=== PATIENT | male | born 1970 | race Caucasian/White ===

== ENCOUNTER 2021-03-29 07:43 | Emergency (ER) | payer OTHER, SELFPAY ==
--- NOTE | ~2021-03-29 | CT_ITS ---
EXAMINATION: CT ABDOMEN AND PELVIS WITHOUT CONTRAST CLINICAL INFORMATION: Left flank pain COMPARISON: CT abdomen pelvis 2016 TECHNIQUE: Multidetector volumetric imaging was performed from the superior aspect of the liver through the pubic symphysis. Sagittal and coronal reformatted images were obtained on the technologist's workstation. This CT examination was performed using dose optimization techniques as appropriate, variously including the following: *Automated exposure control *Adjustment of mA and/or kV according to patient size (this includes techniques or standardized protocols for targeted exams where dose is matched to indication/reason for exam; i.e. extremities or head) *Use of iterative reconstruction technique DLP: 670 mGy-cm FINDINGS: LUNG BASES: There is bibasilar atelectasis/scarring. Heart size is normal. LIVER, GALLBLADDER, AND BILIARY TREE: The liver is normal in size, shape, and attenuation. There is a focal hypodensity along the ligament teres likely focal fatty infiltration. Rest the liver is unremarkable. No biliary ductal dilatation is present. The gallbladder is unremarkable with no evidence of radiopaque gallstones, gallbladder wall thickening, or obvious pericholecystic inflammatory changes. PANCREAS: Unremarkable. SPLEEN: Unremarkable. ADRENAL GLANDS: Unremarkable. KIDNEYS AND URETERS: The kidneys are normal in size, shape, and attenuation. No hydronephrosis, hydroureter, or calculi seen. No perinephric stranding. BLADDER: Unremarkable. GASTROINTESTINAL TRACT: There is scattered gas, diverticula and stool seen throughout the colon without significant distention. The small bowel loops are normal caliber. There are surgical camille along the right lower quadrant likely from previous appendectomy. No free air or free fluid seen. ABDOMINAL WALL: No significant hernia is appreciated. LYMPH NODES: Normal. VASCULAR: Unremarkable. PELVIC VISCERA: Unremarkable. OSSEOUS STRUCTURES: Unremarkable. CT/CT abdomen pelvis wo con IMPRESSION: Sigmoid and scattered rest the colon diverticulosis without arthritis. Mild constipation. No radiopaque urolith or hydroureteronephrosis. Likely appendectomy with surgical camille in the right lower quadrant.
[2021-03-29 08:00] VITALS: BP 135/73; PULSE 67; RESP 18; TEMP 36.7; O2SAT 96; BMI 29.7
--- NOTE | 2021-03-29 08:14 | ED_ITS ---
HPI - Back Pain/Injury General Chief Complaint: Back Pain/Injury Stated Complaint: L LOWER SIDE SWELLING Time Seen by Provider: 03/29/21 08:12 Source: patient Mode of arrival: ambulatory Limitations: no limitations History of Present Illness MD elicited complaint: back pain Onset (ago): week(s) (2) Timing: intermittent Severity: moderate Similar Symptoms Previously: No Quality: dull Location: left flank Radiation: none Exacerbating factors: none Relieving factors: none Context: unknown Associated symptoms: denies other symptoms Work related injury: No Related Data Previous Rx's Medication Instructions Recorded candesartan 16 mg tablet 16 mg PO DAILY #90 tab 06/27/20 albuterol sulfate 90 mcg/actuation 2 inh INHALATION Q6H PRN #8.5 g 12/19/20 aerosol inhaler cyclobenzaprine 10 mg tablet 10 mg PO TID PRN #14 tab 03/29/21 ibuprofen 600 mg tablet 600 mg PO Q6H PRN #30 tab 03/29/21 lidocaine 4 % topical patch 1 patch TOPICAL DAILY PRN #10 ea 03/29/21 Allergies Allergy/AdvReac Type Severity Reaction Status Date / Time Iodinated Contrast Media Allergy Intermediate HIVES Verified 03/29/21 08:00 [IV CONTRAST] shrimp Allergy Intermediate THROAT Verified 03/29/21 08:00 SWELLING/ITCHING iopamidol [From Isovue-128] Allergy Mild HIVES Verified 03/29/21 08:00 penicillin V Allergy Unknown unknown Verified 03/29/21 08:00 Penicillins [PENICILLINS] Allergy Unknown REACTION Verified 03/29/21 08:00 UNKNOWN FRUIT, SKINS Allergy Intermediate THROAT Uncoded 12/19/20 09:25 SWELLING/ITCHING Dye PENITENTIARY Blue 1 Allergy Unknown unknown Uncoded 12/19/20 09:25 Review of Systems Review of Systems: Constitutional : No Weight loss, No Fever, No Chills, ENT/Mouth : No Hearing loss, No Ear Pain, No Nasal Congestion, No Sinus Pain, No Hoarseness, No sore throat, No Rhinorrhea, No Swallowing Difficulty Cardiovascular : No Chest Pain, No SOB Respiratory : No Cough, No Dyspnea Gastrointestinal : No Nausea, No Vomiting, No Diarrhea, No abdominal Pain, No Hematochezia, No Melena Genitourinary : No Dysuria, No Urinary Frequency, No Hematuria, No Urinary Incontinence, Musculoskeletal : positive back pain Skin : No Skin Lesions, No rash Neuro : No Weakness, No Numbness, No Paresthesias, no loss of bowel or bladder incontinence, no saddle anesthesia All other systems reviewed and are negative [facility] Past Medical History Medical History (Updated 03/29/21 @ 10:15 by Lizzie Ames DO) Asthma HTN (hypertension) Retinal vein occlusion Social History Social History Housing: House Patient Tobacco Use Status: Never used Tobacco Second Hand Smoke Exposure: No Advance Directives: No Advance Directives Information Provided: Yes Advance Directives on File: No Current occupational status: employed Physical Exam Vital Signs: Vital Signs: Last Vital Signs Temp 98.0 F 03/29/21 08:00 Pulse 67 03/29/21 08:00 Resp 18 03/29/21 08:00 BP 135/73 03/29/21 08:00 Pulse Ox 96 03/29/21 08:00 Body Mass Index 29.7 Appearance: Alert. Oriented X3. No acute distress. Eyes: Pupils equal, round and reactive to light. ENT: Pharynx normal. Neck: Normal inspection. Neck supple. CVS: Normal heart rate and rhythm. Pulses normal. Respiratory: No respiratory distress. Breath sounds normal. Abdomen: Soft and nontender. Back: feels L flank is more swollen on rash or mass felt, mild ttp Skin: Skin warm and dry. Normal skin color. Normal skin turgor. Extremities: No lower extremity edema. No calf ttp Neuro: Oriented X 3. No motor deficit. No sensory deficit. Course Course Course Narrative: no acute findings MDM - Back Pain/Injury MDM Narrative Medical decision making narrative: 50 yo male with no sig PMH here with c/o swelling and pain to L flank for 3 weeks no trauma reported no other red flags just unusual pain - not reproduceable at this time will obtain UA and CT scan for mass - dispo per results and findings. Lab Data Labs: Lab Results 03/29/21 Range/Units 08:40 Urine Color YELLOW Urine Appearance CLEAR Urine pH 6.5 (5.0-8.0) Ur Specific [place] 1.020 (1.005-1.025) Urine Protein NEG (NEG-TRACE) MG/DL Urine Glucose (UA) NEG (NEG) MG/DL Urine Ketones NEG (NEG) MG/DL Urine Blood 1+ H (NEG) Urine Nitrite NEG (NEG) Ur Leukocyte Esterase NEG (NEG) Urine RBC 5-9 H (0) /HPF Urine WBC 0-2 (0-4) /HPF Ur Squamous Epith Cells TRACE /LPF Urine Bacteria NONE /LPF Urine Mucus 1+ /LPF Discharge Plan Discharge Clinical Impression: Left flank pain Patient Disposition: Home, Self-Care Instructions: Flank Pain (ED) Additional Instructions: return to ED for any worsening symptoms or concerns Prescriptions: New cyclobenzaprine 10 mg tablet 10 mg PO TID PRN (Reason: muscle spasm) Qty: 14 RF: 0 lidocaine 4 % adhesive patch,medicated 1 patch topical DAILY PRN (Reason: pain) Qty: 10 RF: 0 ibuprofen 600 mg tablet 600 mg PO Q6H PRN (Reason: pain) Qty: 30 RF: 0 No Action candesartan 16 mg tablet 16 mg PO DAILY Qty: 90 RF: 3 albuterol sulfate 90 mcg/actuation HFA aerosol inhaler 2 inh inhalation Q6H PRN (Reason: shortness of breath or wheezing) Qty: 8.5 RF: 5 Referrals: Jelena Hammonds MD [Primary Care Provider] - 2 days (if not better) Stand Alone Forms: Work/School Release
[2021-03-29 08:51] LABS: Appearance Urine CLEAR; Color Urine YELLOW; Glucose Urine UA NEG (NEG); Leukocyte Esterase Urine NEG (NEG); Nitrite Urine NEG (NEG); PH 6.5 (5.0-8.0); UACC Culture Trigger NO; Urine Blood 1+ (NEG); Urine Ketones NEG (NEG); Urine Protein NEG (NEG-TRACE)
[2021-03-29 09:00] LABS: Mucus Urine 1+ /LPF; Squamous Epithelial Cell Urine TRACE /LPF; WBC Urine 0-2 /HPF (0-4)
== END 2021-03-29 10:33 | disposition home or self-care (01) ==
PROVIDERS: Emergency Provider Emergency Medicine; PCP Internal Medicine
DX: R10.9 Unspecified abdominal pain (principal); I10 Essential (primary) hypertension; J45.909 Unspecified asthma, uncomplicated; Z79.899 Other long term (current) drug therapy
CPT/HCPCS: 74176; 81001; 99283; 99284

== ENCOUNTER 2021-03-31 22:22 | Emergency (ER) | payer OTHER, SELFPAY ==
--- NOTE | ~2021-03-31 | XR_ITS ---
EXAMINATION: XR CHEST CLINICAL INFORMATION: Fever COMPARISON: 12/12/2019 TECHNIQUE: Frontal view of the chest was obtained. FINDINGS: The lungs are well expanded. There is no focal consolidation, edema, or effusion. Mild bronchial wall thickening noted. No pneumothorax. The cardiomediastinal silhouette is within normal limits. No acute osseous abnormality. Radiopaque anchors in the left humeral head. XR/XR chest 1V IMPRESSION: No consolidation. Bronchial wall thickening can be seen with a small airways process such as asthma or atypical/viral infection.
[2021-03-31 22:43] VITALS: BP 147/88; PULSE 76; RESP 16; TEMP 38.3; O2SAT 96; BMI 29.7
--- NOTE | 2021-03-31 23:19 | ED_ITS ---
HPI - Back Pain/Injury General Chief Complaint: Back Pain/Injury Stated Complaint: Flank pain Time Seen by Provider: 03/31/21 23:13 Source: patient Mode of arrival: ambulatory Limitations: no limitations History of Present Illness HPI Narrative: Patient comes emergency room complaining of left-sided back pain. Patient was evaluated 2 days ago, CT scan was within normal limits. Patient states that he is concerned that his kidneys are not working well. Patient's concern is due to the history of family issues with kidneys. Patient denies abdominal pain, no flank pain, complaining of back pain with movement, states his told him his back looks more swollen than usual. No urinary symptoms., no fever chills. Related Data Previous Rx's Medication Instructions Recorded candesartan 16 mg tablet 16 mg PO DAILY #90 tab 06/27/20 albuterol sulfate 90 mcg/actuation 2 inh INHALATION Q6H PRN #8.5 g 12/19/20 aerosol inhaler cyclobenzaprine 10 mg tablet 10 mg PO TID PRN #14 tab 03/29/21 ibuprofen 600 mg tablet 600 mg PO Q6H PRN #30 tab 03/29/21 lidocaine 4 % topical patch 1 patch TOPICAL DAILY PRN #10 ea 03/29/21 cyclobenzaprine 10 mg tablet 10 mg PO TID PRN #10 tab 04/01/21 Allergies Allergy/AdvReac Type Severity Reaction Status Date / Time Iodinated Contrast Media Allergy Intermediate HIVES Verified 03/31/21 22:41 [IV CONTRAST] shrimp Allergy Intermediate THROAT Verified 03/31/21 22:41 SWELLING/ITCHING iopamidol [From Isovue-128] Allergy Mild HIVES Verified 03/31/21 22:41 penicillin V Allergy Unknown unknown Verified 03/31/21 22:41 Penicillins [PENICILLINS] Allergy Unknown REACTION Verified 03/31/21 22:41 UNKNOWN FRUIT, SKINS Allergy Intermediate THROAT Uncoded 12/19/20 09:25 SWELLING/ITCHING Dye JAIL Blue 1 Allergy Unknown unknown Uncoded 12/19/20 09:25 Review of Systems Review of Systems: Constitutional : No Weight loss, No Fever, No Chills, No Night Sweats, No Fatigue, No Malaise ENT/Mouth : No Hearing loss, No Ear Pain, No Nasal Congestion, No Sinus Pain, No Hoarseness, No sore throat, No Rhinorrhea, No Swallowing Difficulty Eyes: No Eye Pain, No Swelling, No Redness, No Foreign Body, No Discharge, No Vision Changes Cardiovascular : No Chest Pain, No SOB, No Dyspnea on Exertion, No Orthopnea, No Edema, No Palpitations Respiratory : No Cough, No Sputum, No Wheezing, No Smoke Exposure, No Dyspnea Gastrointestinal : No Nausea, No Vomiting, No Diarrhea, No Constipation, No abdominal Pain, No Hematochezia, No Melena Genitourinary : no irregular bleeding, No Dysuria, No Urinary Frequency, No Hematuria, No Urinary Incontinence, No Urgency, No Flank Pain, No Urinary Flow Changes, No Hesitancy Musculoskeletal : No joint pain, complaining of left-sided back pain and mild swelling Skin : No Skin Lesions, No rash Neuro : No Weakness, No Numbness, No Paresthesias, No Loss of Consciousness, No Dizziness, No Headache Psych : No Anxiety/Panic, No Depression, No SI/HI/AH/VH, No Social Issues, Heme/Lymph: No Bruising, No Bleeding,No Lymphadenopathy Endocrine : No Polyuria, No Polydipsia, No Temperature Intolerance [facility] Past Medical History Medical History Asthma HTN (hypertension) Retinal vein occlusion Social History Social History Housing: House Patient Tobacco Use Status: Never used Tobacco Second Hand Smoke Exposure: No Advance Directives: No Advance Directives Information Provided: No Current occupational status: employed Physical Exam Vital Signs: Vital Signs: Last Vital Signs Temp 100.9 F H 03/31/21 22:43 Pulse 76 03/31/21 22:43 Resp 16 03/31/21 22:43 BP 147/88 H 03/31/21 22:43 Pulse Ox 96 03/31/21 22:43 Body Mass Index 29.7 Const: Other: Appearance: Alert. Oriented X3. No acute distress. Eyes: Pupils equal, round and reactive to light. ENT: Pharynx normal. Neck: Normal inspection. Neck supple. No lymph nodes noted. No crepitus CVS: Normal heart rate and rhythm. Pulses normal. Normal S1 and S2 Respiratory: No respiratory distress. Breath sounds normal. No Wheezing. No rales Abdomen: Soft and nontender. No rigidity. No distention. Back: Mild tenderness to palpation over the left lower back, no flank pain Skin: Skin warm and dry. Normal skin color. Normal skin turgor. Extremities: No lower extremity edema. No lower extremity edema. No Lacerations. No Rash Neuro: Oriented X 3. No motor deficit. No sensory deficit. Moving all extermities. No slurred speech. Course Course Course Narrative: I discussed with the patient that his symptoms and physical exam suggest musculoskeletal etiology. CBC and chemistry pending Initially it was marked patient's temperature is 100.9 degrees, it was recheck, it was 97.8. Patient did not have a fever. Patient's back pain likely musculoskeletal MDM - Back Pain/Injury Lab Data Result diagrams: 03/31/21 23:40 03/31/21 23:41 Labs: Lab Results 03/31/21 03/31/21 03/31/21 Range/Units 23:40 23:40 23:41 WBC 13.6 H (4.8-10.8) X10*3/uL RBC 5.37 (4.60-5.80) X10*6/uL Hgb 14.3 (14.0-18.0) g/dl Hct 43.5 (42-52) % MCV 81.0 (80-98) fL MCH 26.6 L (27.0-33.0) pg MCHC 32.9 (31.0-36.0) g/dl RDW 13.7 (11.0-16.0) % Plt Count 282 (160-400) X10*3/uL MPV 10.4 (9.4-12.4) fL Immature Gran % (Auto) 0.5 H (0.0-0.4) % Neut % (Auto) 63.5 (45-73) % Lymph % (Auto) 23.3 (20-40) % [place] % (Auto) 8.6 (2-11) % Eos % (Auto) 3.5 (0-4) % Baso % (Auto) 0.6 (0-2) % Lymph # (Auto) 3.2 (1.2-4.9) X10*3/uL [place] # (Auto) 1.2 (0.1-1.2) X10*3/uL Eos # (Auto) 0.5 H (0.0-0.4) X10*3/uL Baso # (Auto) 0.1 (0.0-0.2) X10*3/uL Abs Immat Gran (auto) 0.07 H (0.00-0.03) X10*3/uL Absolute Neuts (auto) 8.6 H (2.0-8.3) X10*3/uL Absolute Nucleated RBC 0.000 (0.0-0.012) X10*3/uL Nucleated RBC % (auto) 0.0 (0.0-0.2) /100WBC Sodium 141 (135-145) mmol/L Potassium 4.2 (3.3-5.1) mmol/L Chloride 105 (96-108) mmol/L Carbon Dioxide 27 (22-29) mmol/L Anion Gap 13 (12-20) BUN 19 H (9-16) mg/dL Creatinine 0.89 (0.5-1.4) mg/dL Estim Creat Clear Calc 102.9 Estimated GFR > 60 Random Glucose 100 (60-115) mg/dL Calcium 10.1 (8.4-10.2) mg/dL Urine Color YELLOW Urine Appearance CLEAR Urine pH 6.0 (5.0-8.0) Ur Specific [place] 1.025 (1.005-1.025) Urine Protein NEG (NEG-TRACE) MG/DL Urine Glucose (UA) NEG (NEG) MG/DL Urine Ketones NEG (NEG) MG/DL Urine Blood 1+ H (NEG) Urine Nitrite NEG (NEG) Ur Leukocyte Esterase NEG (NEG) Urine RBC 0-2 (0) /HPF Urine WBC 0-2 (0-4) /HPF Ur Squamous Epith Cells TRACE /LPF Urine Bacteria NONE /LPF COVID-19 (JUNG) (Negative) COVID-19 Clin Com 04/01/21 Range/Units 00:08 WBC (4.8-10.8) X10*3/uL RBC (4.60-5.80) X10*6/uL Hgb (14.0-18.0) g/dl Hct (42-52) % MCV (80-98) fL MCH (27.0-33.0) pg MCHC (31.0-36.0) g/dl RDW (11.0-16.0) % Plt Count (160-400) X10*3/uL MPV (9.4-12.4) fL Immature Gran % (Auto) (0.0-0.4) % Neut % (Auto) (45-73) % Lymph % (Auto) (20-40) % [place] % (Auto) (2-11) % Eos % (Auto) (0-4) % Baso % (Auto) (0-2) % Lymph # (Auto) (1.2-4.9) X10*3/uL [place] # (Auto) (0.1-1.2) X10*3/uL Eos # (Auto) (0.0-0.4) X10*3/uL Baso # (Auto) (0.0-0.2) X10*3/uL Abs Immat Gran (auto) (0.00-0.03) X10*3/uL Absolute Neuts (auto) (2.0-8.3) X10*3/uL Absolute Nucleated RBC (0.0-0.012) X10*3/uL Nucleated RBC % (auto) (0.0-0.2) /100WBC Sodium (135-145) mmol/L Potassium (3.3-5.1) mmol/L Chloride (96-108) mmol/L Carbon Dioxide (22-29) mmol/L Anion Gap (12-20) BUN (9-16) mg/dL Creatinine (0.5-1.4) mg/dL Estim Creat Clear Calc Estimated GFR Random Glucose (60-115) mg/dL Calcium (8.4-10.2) mg/dL Urine Color Urine Appearance Urine pH (5.0-8.0) Ur Specific [place] (1.005-1.025) Urine Protein (NEG-TRACE) MG/DL Urine Glucose (UA) (NEG) MG/DL Urine Ketones (NEG) MG/DL Urine Blood (NEG) Urine Nitrite (NEG) Ur Leukocyte Esterase (NEG) Urine RBC (0) /HPF Urine WBC (0-4) /HPF Ur Squamous Epith Cells /LPF Urine Bacteria /LPF COVID-19 (JUNG) Negative (Negative) COVID-19 Clin Com See Note Imaging Data Chest x-ray: Radiologist's impression: The lungs are well expanded. There is no focal consolidation, edema, or effusion. Mild bronchial wall thickening noted. No pneumothorax. The cardiomediastinal silhouette is within normal limits. No acute osseous abnormality. Radiopaque anchors in the left humeral head. XR/XR chest 1V IMPRESSION: No consolidation. Bronchial wall thickening can be seen with a small airways process such as asthma or atypical/viral infection. Discharge Plan Discharge Clinical Impression: Back pain Patient Disposition: Home, Self-Care Instructions: Back Pain (ED) Additional Instructions: Please follow-up with your primary care physician tomorrow. If you have any worsening or new symptoms, please return to the emergency room or call 911 Prescriptions: New cyclobenzaprine 10 mg tablet 10 mg PO TID PRN (Reason: muscle spasm) Qty: 10 RF: 0 No Action candesartan 16 mg tablet 16 mg PO DAILY Qty: 90 RF: 3 cyclobenzaprine 10 mg tablet 10 mg PO TID PRN (Reason: muscle spasm) Qty: 14 RF: 0 lidocaine 4 % adhesive patch,medicated 1 patch topical DAILY PRN (Reason: pain) Qty: 10 RF: 0 ibuprofen 600 mg tablet 600 mg PO Q6H PRN (Reason: pain) Qty: 30 RF: 0 albuterol sulfate 90 mcg/actuation HFA aerosol inhaler 2 inh inhalation Q6H PRN (Reason: shortness of breath or wheezing) Qty: 8.5 RF: 5
[2021-03-31 23:52] LABS: MANUAL DIFF FLAG NO
[2021-03-31 23:53] LABS: Basophils Absolute Auto 0.1 X10*3/uL (0.0-0.2); Basophils Percent Auto 0.6 % (0-2); Eosinophils Absolute Auto 0.5 X10*3/uL (0.0-0.4); Eosinophils Percent Auto 3.5 % (0-4); Hematocrit 43.5 % (42-52); Hemoglobin 14.3 g/dl (14.0-18.0); Imm Gran Abs Auto 0.07 X10*3/uL (0.00-0.03); Imm Gran Pct Auto 0.5 % (0.0-0.4); Lymphocytes Absolute Auto 3.2 X10*3/uL (1.2-4.9); Lymphocytes Percent Auto 23.3 % (20-40); Mean Corpuscular HGB Conc 32.9 g/dl (31.0-36.0); Mean Corpuscular Hemoglobin 26.6 pg (27.0-33.0); Mean Platelet Volume 10.4 fL (9.4-12.4); Monocytes Absolute Auto 1.2 X10*3/uL (0.1-1.2); Monocytes Percent Auto 8.6 % (2-11); Neutrophils Absolute Auto 8.6 X10*3/uL (2.0-8.3); Neutrophils Percent Auto 63.5 % (45-73); Platelet Count 282 X10*3/uL (160-400); Red Blood Count 5.37 X10*6/uL (4.60-5.80); Red Cell Distribution Width 13.7 % (11.0-16.0); White Blood Count 13.6 X10*3/uL (4.8-10.8)
[2021-03-31 23:54] LABS: Appearance Urine CLEAR; Color Urine YELLOW; Glucose Urine UA NEG (NEG); Leukocyte Esterase Urine NEG (NEG); Nitrite Urine NEG (NEG); Specific Gravity - Urine 1.025 (1.005-1.025); UACC Culture Trigger NO; Urine Blood 1+ (NEG); Urine Ketones NEG (NEG); Urine Protein NEG (NEG-TRACE)
--- NOTE | 2021-04-01 00:05 | PC.NURSE ---
PT labs and urine obtained.
[2021-04-01 00:08] LABS: Anion Gap 13 (12-20); Blood Urea Nitrogen 19 mg/dL (9-16); Calcium 10.1 mg/dL (8.4-10.2); Carbon Dioxide 27 mmol/L (22-29); Chloride 105 mmol/L (96-108); Creatinine Clr Calc Pharmacy 102.9; Estimated Glomerular Filt Rate > 60; Glucose Random 100 mg/dL (60-115); Potassium 4.2 mmol/L (3.3-5.1); Sodium 141 mmol/L (135-145)
--- NOTE | 2021-04-01 00:10 | PC.NURSE ---
Covid swab obtained. Awaiting labs for blood, urine, and swab.
[2021-04-01 00:11] LABS: RBC Urine 0-2 /HPF (0); Squamous Epithelial Cell Urine TRACE /LPF; WBC Urine 0-2 /HPF (0-4)
[2021-04-01 00:33] LABS: COVID-19 Test Negative (Negative); IDNOW Serial# 9DD0AD1C
== END 2021-04-01 02:10 | disposition home or self-care (01) ==
PROVIDERS: Emergency Provider Emergency Medicine; PCP Internal Medicine
DX: M54.50 Low back pain, unspecified (principal); Z20.822 Contact with and (suspected) exposure to COVID-19; Z79.899 Other long term (current) drug therapy
CPT/HCPCS: 36415; 71045; 80048; 81001; 85025; 87635; 99283

== ENCOUNTER 2021-07-24 09:34 | Emergency (ER) | payer OTHER, SELFPAY ==
--- NOTE | ~2021-07-24 | XR_ITS ---
EXAMINATION: XR CHEST CLINICAL INFORMATION: SOB COMPARISON: Chest 04/01/2021 TECHNIQUE: 2 views of the chest were obtained. FINDINGS: No significant abnormality is noted involving the heart, lungs, mediastinum, bony thorax or soft tissues. XR/XR chest 2V IMPRESSION: Unremarkable chest examination.
--- NOTE | 2021-07-24 09:43 | ECG_ITS ---
Test Reason : SOB Blood Pressure : / mmHG Vent. Rate : 069 BPM Atrial Rate : 069 BPM P-R Int : 164 ms QRS Dur : 098 ms QT Int : 400 ms P-R-T Axes : 062 056 028 degrees QTc Int : 428 ms Normal sinus rhythm Normal ECG When compared with ECG of 12-DEC-2019 22:11, Nonspecific T wave abnormality now evident in Lateral leads Referred By: Generic ED Physician Electronically Signed By:OPHELIA BARRAZA
[2021-07-24 10:08] LABS: MANUAL DIFF FLAG NO
[2021-07-24 10:19] LABS: Basophils Percent Auto 0.4 % (0-2); Eosinophils Absolute Auto 0.3 X10*3/uL (0.0-0.4); Eosinophils Percent Auto 2.9 % (0-4); Hematocrit 43.3 % (42.0-52.0); Hemoglobin 13.7 g/dl (14.0-18.0); Imm Gran Pct Auto 0.9 % (0.0-0.4); Lymphocytes Absolute Auto 2.3 X10*3/uL (1.2-4.9); Lymphocytes Percent Auto 20.5 % (20-40); Mean Corpuscular HGB Conc 31.6 g/dl (31.0-36.0); Mean Corpuscular Hemoglobin 26.6 pg (27.0-33.0); Mean Corpuscular Volume 83.9 fL (80.0-98.0); Mean Platelet Volume 10.5 fL (9.4-12.4); Monocytes Absolute Auto 0.8 X10*3/uL (0.1-1.2); Monocytes Percent Auto 6.9 % (2-11); Neutrophils Absolute Auto 7.5 x10*3/uL (2.0-8.3); Neutrophils Percent Auto 68.4 % (45-73); Platelet Count 284 X10*3/uL (160-400); Red Blood Count 5.16 X10*6/uL (4.60-5.80); Red Cell Distribution Width 13.7 % (11.0-16.0)
[2021-07-24 10:26] LABS: COVID-19 Test Negative (Negative); IDNOW Serial# 55D5AD1C
[2021-07-24 10:31] LABS: Alanine Aminotransferase 27 U/L (0-40); Albumin Level 4.4 g/dL (3.5-5.0); Alkaline Phosphatase 119 U/L (39-117); Anion Gap 10 (12-20); Aspartate Amino Transferase 16 U/L (5-37); Bilirubin Total 0.4 mg/dL (0.0-1.0); Blood Urea Nitrogen 17 mg/dL (9-16); Calcium 9.6 mg/dL (8.4-10.2); Carbon Dioxide 30 mmol/L (22-29); Chloride 104 mmol/L (96-108); Estimated Glomerular Filt Rate > 60; Glucose Random 90 mg/dL (60-115); Potassium 4.4 mmol/L (3.3-5.1); Sodium 140 mmol/L (135-145); Total Protein 6.9 g/dL (6.5-8.0); Troponin-I High Sensitivity 3.7 ng/L (<3.5-35.0)
[2021-07-24 10:48] VITALS: BP 148/82; PULSE 62; RESP 18; TEMP 36.6; O2SAT 99; BMI 29.7
[2021-07-24 11:56] VITALS: BP 135/87; PULSE 62; RESP 16; TEMP 36.8; O2SAT 99
--- NOTE | 2021-07-24 12:31 | ED_ITS ---
HPI - Chest Pain General Chief Complaint: Chest Pain Stated Complaint: SOB CHEST DISCOMFORT Time Seen by Provider: 07/24/21 11:52 Source: patient Mode of arrival: ambulatory Limitations: no limitations History of Present Illness HPI narrative: 50-year-old male who presents emergency department for evaluation of shortness of breath, dyspnea exertion chest pain x5 days. The patient states that he has noticed shortness of breath at rest as well as dyspnea on exertion. He states that doing his normal activities he seems to get winded. He states that he is at rest he seems that he has to take a deep breath in in order to breathe. He has also noticed intermittent chest pain. He points to his sternum when asked to localize the pain. The pain is a pressure-like pain which is intermittent and can last 10-15 minutes. He gets 5-6 episodes per day and they can come on at rest and with exertion. Patient does have a history of asthma states he has had uses inhaler more frequently. He states that over the past 5 days when he uses his nebulizer machine with albuterol he feels significantly better. The patient has not had any recent surgeries is not gone on any long trips. He does have history of partial retinal vein occlusion 2018 from an unknown source. He states that he gets eye injections at [facility].He denied fever, chills, abdominal pain, nausea or vomiting. Family history is negative for early coronary disease. He does have a history of hypertension. He does not smoke cigarettes. Related Data Previous Rx's Medication Instructions Recorded ibuprofen 600 mg tablet 600 mg PO Q6H PRN #30 tab 03/29/21 lidocaine 4 % topical patch 1 patch TOPICAL DAILY PRN #10 ea 03/29/21 cyclobenzaprine 10 mg tablet 10 mg PO TID PRN #10 tab 04/01/21 albuterol sulfate 90 mcg/actuation 2 inh INHALATION Q6H PRN #8.5 g 05/30/21 aerosol inhaler candesartan 16 mg tablet 16 mg PO DAILY #90 tab 07/17/21 albuterol sulfate 2.5 mg (3 mL) INHALATION Q4-6H 07/24/21 PRN #75 ml fluticasone propionate 220 1 puff INHALATION BID #12 g 07/24/21 mcg/actuation HFA aerosol inhaler (Flovent HFA) prednisone 20 mg tablet 60 mg PO DAILY 5 Days #15 tab 07/24/21 Allergies Allergy/AdvReac Type Severity Reaction Status Date / Time Iodinated Allergy Intermediate HIVES Verified 07/24/21 10:48 Contrast Media [IV CONTRAST] shrimp Allergy Intermediate THROAT Verified 07/24/21 10:48 SWELLING/ITCHI NG iopamidol [From Allergy Mild HIVES Verified 07/24/21 10:48 [id number]] Penicillins Allergy Unknown REACTION Verified 07/24/21 10:48 [PENICILLINS] UNKNOWN FRUIT, SKINS Allergy Intermediate THROAT Uncoded 04/12/21 09:47 SWELLING/ITCHI NG Dye USP Blue 1 Allergy Unknown unknown Uncoded 04/12/21 09:47 Review of Systems Verdana 4l Review of Systems: Yes all other systems are reviewed and Verdana 4d are negative [facility] Past Medical History [facility] Narrative: Social history: He denies tobacco use. He occasionally drinks alcohol. He denies drug use. Medical History Asthma HTN (hypertension) Obesity (BMI 30.0-34.9) Retinal vein occlusion Social History Social History Housing: House Patient Tobacco Use Status: Never used Tobacco e-Cigarette/Vaping Use: Never Used Second Hand Smoke Exposure: No Advance Directives: No Advance Directives Information Provided: No service: No Current occupational status: employed Current occupational exposures/hazards: No Cognitive needs: No Hearing needs: No Vision needs: No Physical Exam Verdana 4l Vital Signs: Verdana 4d Verdana 4d Vital Signs: Verdana 4d Verdana 4Bd Last Vital Signs Verdana 4d Ripper Operator New 4d Ripper Operator New 4d Temp 98.2 F 07/24/21 11:56 Ripper Operator New 4d Pulse 62 07/24/21 11:56 Ripper Operator New 4d Resp 16 07/24/21 11:56 BP 135/87 07/24/21 11:56 Pulse Ox 99 07/24/21 11:56 BMI result Body Mass Index 29.7 Course Course Course Narrative: 50-year-old male with history of asthma and hypertension who presents emergency department for evaluation of shortness of breath, dyspnea exertion and chest pain that can come on at rest or exertion over the past 5 days. Patient states he has had to use his inhaler in his nebulizer more frequently than usual with some relief his symptoms. Vital signs revealed an elevated blood pressure of 148/82 otherwise were unremarkable with an O2 saturation of 99%. Physical examination was normal. Laboratory evaluation revealed a detectable but not elevated high sensitivity troponin of 3.7. COVID-19 and chest x-ray were negative. Given his symptoms, I will repeat a 3 hour high sensitive troponin and add a D-dimer. 1447: D-dimer was not elevated, repeat high sensitivity troponin I was less than 3.5. I did discuss these findings with the patient. The patient's symptoms are most likely related to his asthma. The patient was given a prescription for prednisone 60 mg once a day for 5 days, Flovent 220 mcg, 1 puff twice a day, albuterol nebulizer solution. He was given verbal and printed instructions and discharged home MDM - Chest Pain Lab Data Result diagrams: 07/24/21 10:02 07/24/21 10:02 Labs: Lab Results 07/24/21 07/24/21 07/24/21 Range/Units 10:02 10:02 10:02 WBC 11.0 H (4.8-10.8) X10*3/uL RBC 5.16 (4.60-5.80) X10*6/uL Hgb 13.7 L (14.0-18.0) g/dl Hct 43.3 (42.0-52.0) % MCV 83.9 (80.0-98.0) fL MCH 26.6 L (27.0-33.0) pg MCHC 31.6 (31.0-36.0) g/dl RDW 13.7 (11.0-16.0) % Plt Count 284 (160-400) X10*3/uL MPV 10.5 (9.4-12.4) fL Immature Gran % (Auto) 0.9 H (0.0-0.4) % Neut % (Auto) 68.4 (45-73) % Lymph % (Auto) 20.5 (20-40) % [place] % (Auto) 6.9 (2-11) % Eos % (Auto) 2.9 (0-4) % Baso % (Auto) 0.4 (0-2) % Lymph # (Auto) 2.3 (1.2-4.9) X10*3/uL [place] # (Auto) 0.8 (0.1-1.2) X10*3/uL Eos # (Auto) 0.3 (0.0-0.4) X10*3/uL Baso # (Auto) 0.0 (0.0-0.2) X10*3/uL Abs Immat Gran (auto) 0.10 H (0.00-0.03) X10*3/uL Absolute Neuts (auto) 7.5 (2.0-8.3) x10*3/uL Absolute Nucleated RBC 0.000 (0.0-0.012) X10*3/uL Nucleated RBC % (auto) 0.0 (0.0-0.2) /100WBC D-Dimer High Sensitivty NG/ML Sodium 140 (135-145) mmol/L Potassium 4.4 (3.3-5.1) mmol/L Chloride 104 (96-108) mmol/L Carbon Dioxide 30 H (22-29) mmol/L Anion Gap 10 L (12-20) BUN 17 H (9-16) mg/dL Creatinine 0.96 (0.5-1.4) mg/dL Estim Creat Clear Calc TNP Estimated GFR > 60 Random Glucose 90 (60-115) mg/dL Calcium 9.6 (8.4-10.2) mg/dL Total Bilirubin 0.4 (0.0-1.0) mg/dL AST 16 (5-37) U/L ALT 27 (0-40) U/L Alkaline Phosphatase 119 H (39-117) U/L Troponin I High Sens (<3.5-35.0) ng/L Total Protein 6.9 (6.5-8.0) g/dL Albumin 4.4 (3.5-5.0) g/dL COVID-19 (JUNG) Negative (Negative) COVID-19 Clin Com See Note 07/24/21 07/24/21 07/24/21 Range/Units 10:02 13:45 13:45 WBC (4.8-10.8) X10*3/uL RBC (4.60-5.80) X10*6/uL Hgb (14.0-18.0) g/dl Hct (42.0-52.0) % MCV (80.0-98.0) fL MCH (27.0-33.0) pg MCHC (31.0-36.0) g/dl RDW (11.0-16.0) % Plt Count (160-400) X10*3/uL MPV (9.4-12.4) fL Immature Gran % (Auto) (0.0-0.4) % Neut % (Auto) (45-73) % Lymph % (Auto) (20-40) % [place] % (Auto) (2-11) % Eos % (Auto) (0-4) % Baso % (Auto) (0-2) % Lymph # (Auto) (1.2-4.9) X10*3/uL [place] # (Auto) (0.1-1.2) X10*3/uL Eos # (Auto) (0.0-0.4) X10*3/uL Baso # (Auto) (0.0-0.2) X10*3/uL Abs Immat Gran (auto) (0.00-0.03) X10*3/uL Absolute Neuts (auto) (2.0-8.3) x10*3/uL Absolute Nucleated RBC (0.0-0.012) X10*3/uL Nucleated RBC % (auto) (0.0-0.2) /100WBC D-Dimer High Sensitivty 170 NG/ML Sodium (135-145) mmol/L Potassium (3.3-5.1) mmol/L Chloride (96-108) mmol/L Carbon Dioxide (22-29) mmol/L Anion Gap (12-20) BUN (9-16) mg/dL Creatinine (0.5-1.4) mg/dL Estim Creat Clear Calc Estimated GFR Random Glucose (60-115) mg/dL Calcium (8.4-10.2) mg/dL Total Bilirubin (0.0-1.0) mg/dL AST (5-37) U/L ALT (0-40) U/L Alkaline Phosphatase (39-117) U/L Troponin I High Sens 3.7 < 3.5 (<3.5-35.0) ng/L Total Protein (6.5-8.0) g/dL Albumin (3.5-5.0) g/dL COVID-19 (JUNG) (Negative) COVID-19 Clin Com ECG Data ECG #1: Interpretation: 0951: Normal sinus rhythm with a rate of 69, normal AL interval QRS duration QTC interval, no ST segment elevation, no ST segment depression, no PACs, no PVCs, this is a normal EKG. Discharge Plan Discharge Clinical Impression: Chest pain, Acute dyspnea, Asthma exacerbation Patient Disposition: Home, Self-Care Instructions: Asthma (ED) Additional Instructions: Your chest x-ray was unremarkable. Your EKG was normal. Your laboratory evaluation revealed a detectable high sensitivity troponin of 3.7 and the repeat 3 hour high sensitive troponin was less than 3.5. This is reassuring and suggests that your chest pain today was not secondary to heart attack/myocardial injury. I believe that you symptoms are related to a flare-up of your asthma. You most likely have a high inflammatory component in your breathing tubes and this is what is making her albuterol less effective. Take prednisone 20 mg pills, 3 pills once a day for 5 days. I am prescribing a preventive inhaler that should improve your asthma over time. Use Flovent 1 puff twice a day. Continue to use your albuterol inhaler 2 puffs every 4-6 hours as needed for shortness of breath. Use the albuterol nebulizer solution once every 4-6 hours as needed for shortness of breath. Follow-up with your doctor in 2 days. Please return to the emergency department if your symptoms get worse or if you develop any symptoms that are concerning to you. Prescriptions: New Flovent HFA 220 mcg/actuation HFA aerosol inhaler 1 puff inhalation BID Qty: 12 0RF albuterol sulfate 2.5 mg /3 mL (0.083 %) solution for nebulization 2.5 mg inhalation Q4-6H PRN (Reason: shortness of breath or wheezing) Qty: 75 0RF prednisone 20 mg tablet 60 mg PO DAILY 5 Days Qty: 15 0RF No Action albuterol sulfate 90 mcg/actuation HFA aerosol inhaler 2 inh inhalation Q6H PRN (Reason: shortness of breath or wheezing) Qty: 8.5 5RF candesartan 16 mg tablet 16 mg PO DAILY Qty: 90 3RF lidocaine 4 % adhesive patch,medicated 1 patch topical DAILY PRN (Reason: pain) Qty: 10 0RF Rx Instructions: may leave on for up to 12 hrs ibuprofen 600 mg tablet 600 mg PO Q6H PRN (Reason: pain) Qty: 30 0RF cyclobenzaprine 10 mg tablet 10 mg PO TID PRN (Reason: muscle spasm) Qty: 10 0RF
[2021-07-24 14:00] LABS: D Dimer High Sensitivity 170 NG/ML
[2021-07-24 14:19] LABS: Troponin-I High Sensitivity < 3.5 ng/L (<3.5-35.0)
== END 2021-07-24 15:36 | disposition home or self-care (01) ==
PROVIDERS: Emergency Provider Emergency Medicine Emergency Medical Services; PCP Internal Medicine
DX: R07.9 Chest pain, unspecified (principal); R06.00 Dyspnea, unspecified; J45.901 Unspecified asthma with (acute) exacerbation; Z20.822 Contact with and (suspected) exposure to COVID-19; I10 Essential (primary) hypertension
CPT/HCPCS: 36415; 71046; 80053; 84484; 85025; 85379; 87635; 93005; 99283

== ENCOUNTER 2021-07-25 22:40 | Inpatient (IN) | payer OTHER, SELFPAY ==
--- NOTE | ~2021-07-25 | CT_ITS ---
EXAMINATION: CT ABDOMEN AND PELVIS WITHOUT CONTRAST CLINICAL INFORMATION: Severe colitis with abdominal pain COMPARISON: CT abdomen pelvis 03/29/2021 TECHNIQUE: Multidetector volumetric imaging was performed from the superior aspect of the liver through the pubic symphysis. Sagittal and coronal reformatted images were obtained on the technologist's workstation. This CT examination was performed using dose optimization techniques as appropriate, variously including the following: *Automated exposure control *Adjustment of mA and/or kV according to patient size (this includes techniques or standardized protocols for targeted exams where dose is matched to indication/reason for exam; i.e. extremities or head) *Use of iterative reconstruction technique DLP: 667 mGy-cm FINDINGS: LUNG BASES: Basilar atelectasis is present LIVER, GALLBLADDER, AND BILIARY TREE: The liver is normal in size, shape, and attenuation. No focal hepatic lesion or biliary ductal dilatation is present. The gallbladder is unremarkable with no evidence of radiopaque gallstones, gallbladder wall thickening, or obvious pericholecystic inflammatory changes. PANCREAS: Unremarkable. SPLEEN: Unremarkable. ADRENAL GLANDS: Unremarkable. KIDNEYS AND URETERS: The kidneys are normal in size, shape, and attenuation. Probable left parapelvic cyst. Appearances are unchanged from prior. No worrisome renal masses seen. No hydronephrosis, hydroureter, or calculi seen. No perinephric stranding. BLADDER: Unremarkable. GASTROINTESTINAL TRACT: Colonic diverticula are present without evidence of diverticulitis. The small and large bowel are otherwise unremarkable. The appendix is seen and surgical camille are present in the right lower quadrant possibly from prior appendectomy. ABDOMINAL WALL: No significant hernia is appreciated. LYMPH NODES: Some shotty retroperitoneal lymph nodes are present but there is no adenopathy. VASCULAR: Minimal calcific plaque without aneurysm. PELVIC VISCERA: Prostate and seminal vesicles appear normal. No free intraperitoneal fluid. OSSEOUS STRUCTURES: Unremarkable. CT/CT abdomen pelvis wo con IMPRESSION: A cause for the patient's severe abdominal pain is not found. No evidence of severe colitis at this time. Patient has diverticular disease without evidence of diverticulitis. Fleischner guidelines were followed.
[2021-07-25 22:52] VITALS: BP 112/68; BP 138/88; PULSE 80; PULSE 94; RESP 16; TEMP 36.4; O2SAT 98; O2SAT 99; BMI 29.7
--- NOTE | 2021-07-25 23:00 | ED_ITS ---
HPI - Syncope General Chief Complaint: Syncope Stated Complaint: sycope Time Seen by Provider: 07/25/21 23:00 Source: patient Mode of arrival: EMS Limitations: no limitations History of Present Illness HPI narrative: Patient been having abdominal cramps with nausea and diarrhea since yesterday today was the at work had abdominal cramps went to bathroom her episode of diarrhea felt lightheaded passed out for few seconds after coming to the ER patient having another bowel movements during syncopal episode patient complaining of slight nausea was seen here yesterday for shortness of breath workup was negative COVID was negative per patient had a big vomiting and was pale looking with vomitus in his mouth and had a small seizure lasted for few seconds patient was very pale and sick-looking when this happened almost fell down but no head injury Related Data Previous Rx's Medication Instructions Recorded ibuprofen 600 mg tablet 600 mg PO Q6H PRN #30 tab 03/29/21 lidocaine 4 % topical patch 1 patch TOPICAL DAILY PRN #10 ea 03/29/21 cyclobenzaprine 10 mg tablet 10 mg PO TID PRN #10 tab 04/01/21 albuterol sulfate 90 mcg/actuation 2 inh INHALATION Q6H PRN #8.5 g 05/30/21 aerosol inhaler candesartan 16 mg tablet 16 mg PO DAILY #90 tab 07/17/21 albuterol sulfate 2.5 mg (3 mL) INHALATION Q4-6H 07/24/21 PRN #75 ml fluticasone propionate 220 1 puff INHALATION BID #12 g 07/24/21 mcg/actuation HFA aerosol inhaler (Flovent HFA) prednisone 20 mg tablet 60 mg PO DAILY 5 Days #15 tab 07/24/21 Allergies Allergy/AdvReac Type Severity Reaction Status Date / Time Iodinated Allergy Intermediate HIVES Verified 07/24/21 10:48 Contrast Media [IV CONTRAST] shrimp Allergy Intermediate THROAT Verified 07/24/21 10:48 SWELLING/ITCHI NG iopamidol [From Allergy Mild HIVES Verified 07/24/21 10:48 [id number]] Penicillins Allergy Unknown REACTION Verified 07/24/21 10:48 [PENICILLINS] UNKNOWN FRUIT, SKINS Allergy Intermediate THROAT Uncoded 04/12/21 09:47 SWELLING/ITCHI NG Dye DETENTION Blue 1 Allergy Unknown unknown Uncoded 04/12/21 09:47 Review of Systems Verdana 4l Review of Systems: Yes all other systems are reviewed and Verdana 4d are negative [facility] Past Medical History Medical History Asthma HTN (hypertension) Obesity (BMI 30.0-34.9) Retinal vein occlusion Social History Social History Housing: House Patient Tobacco Use Status: Never used Tobacco e-Cigarette/Vaping Use: Never Used Second Hand Smoke Exposure: No Advance Directives: No Advance Directives Information Provided: No service: No Current occupational status: employed Current occupational exposures/hazards: No Cognitive needs: No Hearing needs: No Vision needs: No Physical Exam Verdana 4l Vital Signs: Verdana 4d Verdana 4d Vital Signs: Verdana 4d Verdana 4Bd Last Vital Signs Verdana 4d Kicking Machine Operator New 4d Kicking Machine Operator New 4d Temp 97.5 F 07/25/21 22:52 Kicking Machine Operator New 4d Pulse 71 07/26/21 00:17 Kicking Machine Operator New 4d Resp 16 07/26/21 00:17 BP 91/53 L 07/26/21 00:17 Pulse Ox 96 07/26/21 00:17 BMI result Body Mass Index 29.7 Appearance: Alert. Oriented X3. No acute distress. Eyes: PERRLA, No Nystagmus ENT: Pharynx normal. Oral Mucosa moist Neck: Normal inspection. Neck supple. CVS: Normal heart rate and rhythm. Pulses normal. Respiratory: No respiratory distress. Equal air entry bilateral, no wheezing/r ales/rhonchi Abdomen: Soft and nontender. Bowel sounds are present, no mass palpable, Skin: Skin warm and dry. Normal skin color. Normal skin turgor. Extremities: No lower extremity edema. No calf tenderness Neuro: Oriented X 3. No motor deficit. No sensory deficit.No cerebellar signs , cranial nerves II-XII intact MDM - Syncope MDM Narrative Medical decision making narrative: Patient has significant leukocytosis with vasovagal attack with diarrhea likely colitis patient's blood pressure dropped to 80s while in the ER improved after IV fluids will give IV antibiotic possible Gram-negative bacteremia patient denies any CP intake of seafood had rice and chicken is also sick with same after IV fluid blood pressure improved to 100/50 Lab Data Attestation: I reviewed the patient's lab results. Result diagrams: 07/26/21 00:04 07/26/21 00:04 Labs: Lab Results 07/26/21 07/26/21 07/26/21 Range/Units 00:04 00:04 00:04 WBC 21.4 H (4.8-10.8) X10*3/uL RBC 5.88 H (4.60-5.80) X10*6/uL Hgb 15.7 (14.0-18.0) g/dl Hct 48.2 (42.0-52.0) % MCV 82.0 (80.0-98.0) fL MCH 26.7 L (27.0-33.0) pg MCHC 32.6 (31.0-36.0) g/dl RDW 13.6 (11.0-16.0) % Plt Count 295 (160-400) X10*3/uL MPV 10.3 (9.4-12.4) fL Immature Gran % (Auto) 0.7 H (0.0-0.4) % Neut % (Auto) 88.3 H (45-73) % Lymph % (Auto) 4.2 L (20-40) % [place] % (Auto) 6.6 (2-11) % Eos % (Auto) 0.0 (0-4) % Baso % (Auto) 0.2 (0-2) % Lymph # (Auto) 0.9 L (1.2-4.9) X10*3/uL [place] # (Auto) 1.4 H (0.1-1.2) X10*3/uL Eos # (Auto) 0.0 (0.0-0.4) X10*3/uL Baso # (Auto) 0.0 (0.0-0.2) X10*3/uL Abs Immat Gran (auto) 0.15 H (0.00-0.03) X10*3/uL Absolute Neuts (auto) 18.9 H (2.0-8.3) x10*3/uL Absolute Nucleated RBC 0.000 (0.0-0.012) X10*3/uL Nucleated RBC % (auto) 0.0 (0.0-0.2) /100WBC Sodium 140 (135-145) mmol/L Potassium 4.2 (3.3-5.1) mmol/L Chloride 104 (96-108) mmol/L Carbon Dioxide 24 (22-29) mmol/L Anion Gap 16 (12-20) BUN 23 H (9-16) mg/dL Creatinine 1.07 (0.5-1.4) mg/dL Estim Creat Clear Calc 85.6 Estimated GFR > 60 Random Glucose 126 H D (60-115) mg/dL Lactic Acid 2.3 H* (0.5-2.0) mmol/L Calcium 10.0 (8.4-10.2) mg/dL Magnesium 2.3 (1.6-2.6) mg/dL Total Bilirubin 0.4 (0.0-1.0) mg/dL AST 21 (5-37) U/L ALT 32 (0-40) U/L Alkaline Phosphatase 128 H (39-117) U/L Troponin I High Sens (<3.5-35.0) ng/L Total Protein 7.9 (6.5-8.0) g/dL Albumin 4.9 (3.5-5.0) g/dL COVID-19 (JUNG) (Negative) COVID-19 Clin Com 07/26/21 07/26/21 Range/Units 00:04 00:44 WBC (4.8-10.8) X10*3/uL RBC (4.60-5.80) X10*6/uL Hgb (14.0-18.0) g/dl Hct (42.0-52.0) % MCV (80.0-98.0) fL MCH (27.0-33.0) pg MCHC (31.0-36.0) g/dl RDW (11.0-16.0) % Plt Count (160-400) X10*3/uL MPV (9.4-12.4) fL Immature Gran % (Auto) (0.0-0.4) % Neut % (Auto) (45-73) % Lymph % (Auto) (20-40) % [place] % (Auto) (2-11) % Eos % (Auto) (0-4) % Baso % (Auto) (0-2) % Lymph # (Auto) (1.2-4.9) X10*3/uL [place] # (Auto) (0.1-1.2) X10*3/uL Eos # (Auto) (0.0-0.4) X10*3/uL Baso # (Auto) (0.0-0.2) X10*3/uL Abs Immat Gran (auto) (0.00-0.03) X10*3/uL Absolute Neuts (auto) (2.0-8.3) x10*3/uL Absolute Nucleated RBC (0.0-0.012) X10*3/uL Nucleated RBC % (auto) (0.0-0.2) /100WBC Sodium (135-145) mmol/L Potassium (3.3-5.1) mmol/L Chloride (96-108) mmol/L Carbon Dioxide (22-29) mmol/L Anion Gap (12-20) BUN (9-16) mg/dL Creatinine (0.5-1.4) mg/dL Estim Creat Clear Calc Estimated GFR Random Glucose (60-115) mg/dL Lactic Acid (0.5-2.0) mmol/L Calcium (8.4-10.2) mg/dL Magnesium (1.6-2.6) mg/dL Total Bilirubin (0.0-1.0) mg/dL AST (5-37) U/L ALT (0-40) U/L Alkaline Phosphatase (39-117) U/L Troponin I High Sens 3.5 (<3.5-35.0) ng/L Total Protein (6.5-8.0) g/dL Albumin (3.5-5.0) g/dL COVID-19 (JUNG) Negative (Negative) COVID-19 Clin Com See Note Discharge Plan Discharge Clinical Impression: Vasovagal syncope, Acute colitis Patient Disposition: Admitted As Inpatient
[2021-07-25 23:34] VITALS: BP 115/74; BP 122/79; PULSE 100; PULSE 87
[2021-07-25 23:35] VITALS: BP 100/77; PULSE 113
[2021-07-26] VITALS (8 sets, daily range): BP systolic 75–141; BP diastolic 43–89; PULSE 65–85; RESP 13–18; TEMP 36.7–37; O2SAT 95–99
--- NOTE | 2021-07-26 | ECG_ITS ---
Test Reason : SYNCOPE Blood Pressure : / mmHG Vent. Rate : 095 BPM Atrial Rate : 095 BPM P-R Int : 160 ms QRS Dur : 096 ms QT Int : 346 ms P-R-T Axes : 045 055 045 degrees QTc Int : 434 ms Normal sinus rhythm Nonspecific T wave abnormality Abnormal ECG When compared with ECG of 24-JUL-2021 09:51, Nonspecific ST and T wave abnormality now present Referred By: Generic ED Physician Electronically Signed By:OPHELIA BARRAZA
[2021-07-26 00:09] LABS: Basophils Percent Auto 0.2 % (0-2); Hematocrit 48.2 % (42.0-52.0); Hemoglobin 15.7 g/dl (14.0-18.0); Imm Gran Abs Auto 0.15 X10*3/uL (0.00-0.03); Imm Gran Pct Auto 0.7 % (0.0-0.4); Lymphocytes Absolute Auto 0.9 X10*3/uL (1.2-4.9); Lymphocytes Percent Auto 4.2 % (20-40); MANUAL DIFF FLAG NO; Mean Corpuscular HGB Conc 32.6 g/dl (31.0-36.0); Mean Corpuscular Hemoglobin 26.7 pg (27.0-33.0); Mean Platelet Volume 10.3 fL (9.4-12.4); Monocytes Absolute Auto 1.4 X10*3/uL (0.1-1.2); Monocytes Percent Auto 6.6 % (2-11); Neutrophils Absolute Auto 18.9 x10*3/uL (2.0-8.3); Neutrophils Percent Auto 88.3 % (45-73); Platelet Count 295 X10*3/uL (160-400); Red Blood Count 5.88 X10*6/uL (4.60-5.80); Red Cell Distribution Width 13.6 % (11.0-16.0); White Blood Count 21.4 X10*3/uL (4.8-10.8)
[2021-07-26] MEDS: 0.9 % Sodium Chloride 1,000 ML 999 ML IV ×3 (00:18→01:47)
[2021-07-26] MEDS: ondansetron HCL 4 MG/2 ML VIAL IVPUSH ×2 (00:21→08:54)
[2021-07-26 00:24] LABS: Lactic Acid 2.3 mmol/L (0.5-2.0)
[2021-07-26 00:29] LABS: Alanine Aminotransferase 32 U/L (0-40); Albumin Level 4.9 g/dL (3.5-5.0); Alkaline Phosphatase 128 U/L (39-117); Anion Gap 16 (12-20); Aspartate Amino Transferase 21 U/L (5-37); Bilirubin Total 0.4 mg/dL (0.0-1.0); Blood Urea Nitrogen 23 mg/dL (9-16); Carbon Dioxide 24 mmol/L (22-29); Chloride 104 mmol/L (96-108); Creatinine Clr Calc Pharmacy 85.6; Estimated Glomerular Filt Rate > 60; Glucose Random 126 mg/dL (60-115); Magnesium 2.3 mg/dL (1.6-2.6); Potassium 4.2 mmol/L (3.3-5.1); Sodium 140 mmol/L (135-145); Total Protein 7.9 g/dL (6.5-8.0)
[2021-07-26 00:30] LABS: Troponin-I High Sensitivity 3.5 ng/L (<3.5-35.0)
[2021-07-26] MEDS: levoFLOXacin/D5W 500 MG/100 ML PIGGYBACK 100 MG IV (01:09)
[2021-07-26 01:18] LABS: COVID-19 Test Negative (Negative)
[2021-07-26] MEDS: metroNIDAZOLE/NS 500 MG/100 ML PIGGYBACK 100 MG IV (01:45)
[2021-07-26 02:07] LABS: Reflex Lactate? Lactic Acid Added
--- NOTE | 2021-07-26 02:20 | P.HPHOSP_ITS ---
History of Present Illness Date of Service: 07/26/21 Chief Complaint: syncope 50-year-old male with a past medical history of hypertension, obesity, asthma, chronic back pain presented to the hospital with a chief complaint of syncope. Patient reported that he has Had couple of episodes of diarrhea. Also had nausea and vomiting. Follow-up visit in episode of diarrhea he felt nauseous and syncopized. Denies any seizure-like activity piece did Denies any chest pain or palpitations. Patient reports that he was initially presented to the ER for shortness of breath yesterday, workup was negative and subsequently discharged home. Denies any concerns for food poisoning. Complains of abdominal discomfort, cramping. Currently improving. Denies any numbness tingling or focal weakness. Review of all other systems is negative except mentioned above ER course: Per ER team patient's CT abdomen showed no acute findings; EKG was nonischemic, troponins negative, D-dimer negative. Abdominal exam was benign. Patient initially empirically received antibiotics given concerns for colitis prior to the CT scan while in the ER patient had an episode of hypotension with systolic blood pressure in 70s. Given IV fluids. Improved blood pressure. [facility] Medical History Asthma HTN (hypertension) Obesity (BMI 30.0-34.9) Retinal vein occlusion Pertinent family history: as mentioned above Social History Housing: House Patient Tobacco Use Status: Never used Tobacco e-Cigarette/Vaping Use: Never Used Second Hand Smoke Exposure: No Advance Directives: No Advance Directives Information Provided: No service: No Current occupational status: employed Current occupational exposures/hazards: No Cognitive needs: No Hearing needs: No Vision needs: No Meds Allergies Allergy/AdvReac Type Severity Reaction Status Date / Time Iodinated Allergy Intermediate HIVES Verified 07/24/21 10:48 Contrast Media [IV CONTRAST] shrimp Allergy Intermediate THROAT Verified 07/24/21 10:48 SWELLING/ITCHI NG iopamidol [From Allergy Mild HIVES Verified 07/24/21 10:48 [id number]] Penicillins Allergy Unknown REACTION Verified 07/24/21 10:48 [PENICILLINS] UNKNOWN FRUIT, SKINS Allergy Intermediate THROAT Uncoded 04/12/21 09:47 SWELLING/ITCHI NG Dye [facility] Blue 1 Allergy Unknown unknown Uncoded 04/12/21 09:47 Active Medications: Current Medications Acetaminophen (Acetaminophen 325 Mg Tablet) 650 mg PO Q6H PRN PRN Reason: Pain, Mild (Pain Scale 1-3) Enoxaparin Sodium (Enoxaparin Sodium 40 Mg/0.4 Ml Syringe) 40 mg SUBCUT Q24H ABHIJEET Sodium Chloride (Ns) 1,000 mls @ 100 mls/hr IVCONT .Q10H ABHIJEET Melatonin (Melatonin 3 Mg Tablet) 6 mg PO BEDTIME PRN PRN Reason: Insomnia Senna (Sennosides 8.6 Mg Tablet) 17.2 mg PO BEDTIME PRN PRN Reason: Constipation Sodium Chloride (0.9 % Sodium Chloride Flush 3 Ml Syringe) 3 ml IVFLUSH QSHIFT ABHIJEET Physical Exam Verdana 4l Vital Signs and Narrative: Verdana 4d Verdana 4d Vital Signs: Verdana 4d Verdana 4Bd Last Vital Signs Verdana 4d Displayer Merchandise New 4d Displayer Merchandise New 4d Temp 98.1 F 07/26/21 02:13 Displayer Merchandise New 4d Pulse 65 07/26/21 02:13 Displayer Merchandise New 4d Resp 16 07/26/21 02:13 BP 121/79 07/26/21 02:13 Pulse Ox 99 07/26/21 02:13 BMI result Body Mass Index 29.7 Gen: Appears be in no acute distress HEENT: NCAT, Moist mucosa. Pulmonary: Vesicular breath sounds, fair air entry CVS: Normal S1-S2 Abdomen: BS+, Soft, Nontender Extremities: Warm well perfused Neuro: Alert and awake. grossly nonfocal Results Labs CBC and Chem 7: 07/26/21 00:04 07/26/21 00:04 Labs: Laboratory Results - last 24 hr 07/26/21 07/26/21 07/26/21 00:04 00:04 00:04 MCV 82.0 MCH 26.7 L MCHC 32.6 RDW 13.6 Plt Count 295 MPV 10.3 Immature Gran % (Auto) 0.7 H Neut % (Auto) 88.3 H Lymph % (Auto) 4.2 L Kleberg % (Auto) 6.6 Eos % (Auto) 0.0 Baso % (Auto) 0.2 Lymph # (Auto) 0.9 L Kleberg # (Auto) 1.4 H Eos # (Auto) 0.0 Baso # (Auto) 0.0 Abs Immat Gran (auto) 0.15 H Absolute Neuts (auto) 18.9 H Absolute Nucleated RBC 0.000 Nucleated RBC % (auto) 0.0 Anion Gap 16 Estim Creat Clear Calc 85.6 Estimated GFR > 60 Random Glucose 126 H D Lactic Acid 2.3 H* Calcium 10.0 Magnesium 2.3 Total Bilirubin 0.4 AST 21 ALT 32 Alkaline Phosphatase 128 H Troponin I High Sens Total Protein 7.9 Albumin 4.9 COVID-19 (JUNG) COVID-19 Clin Com 07/26/21 07/26/21 00:04 00:44 MCV MCH MCHC RDW Plt Count MPV Immature Gran % (Auto) Neut % (Auto) Lymph % (Auto) Kleberg % (Auto) Eos % (Auto) Baso % (Auto) Lymph # (Auto) Kleberg # (Auto) Eos # (Auto) Baso # (Auto) Abs Immat Gran (auto) Absolute Neuts (auto) Absolute Nucleated RBC Nucleated RBC % (auto) Anion Gap Estim Creat Clear Calc Estimated GFR Random Glucose Lactic Acid Calcium Magnesium Total Bilirubin AST ALT Alkaline Phosphatase Troponin I High Sens 3.5 Total Protein Albumin COVID-19 (JUNG) Negative COVID-19 Clin Com See Note Imaging Radiologist's Impressions: Impressions Abdomen/Pelvis CT 07/26/21 01:38 IMPRESSION: A cause for the patient's severe abdominal pain is not found. No evidence of severe colitis at this time. Patient has diverticular disease without evidence of diverticulitis. Fleischner guidelines were followed. Assessment and Plan (1) Syncope: Status: Acute (2) Hypotension: Status: Acute (3) Diarrhea: Status: Acute (4) SOB (shortness of breath): Status: Acute Plan 50-year-old male with a past medical history of asthma, hypertension, obesity, retinal vein occlusion presented to the hospital with a chief complaint of syncope. Admitted for the following Nausea/vomiting /diarrhea: Likely gastroenteritis. CT abdomen showed no acute findings. If any further episodes of diarrhea will obtain stool studies. Syncope: Preceded by nausea/ diarrhea. ? vasovagal versus hypotension. Exam grossly nonfocal. EKG showed no evidence of bradycardia or AV block. Telemetry. Echocardiogram. Orthostatic vitals. Hypotension: Patient had a blood pressure of 75 /43 while in the ER. Improved with IV fluids. Monitor on telemetry. shortness of breath: Lung sounds are clear. Chest x-ray showed no acute findings. EKG nonischemic. Troponins negative. COVID-19 negative. D-dimer negative. leukocytosis: Likely reactive. Will monitor. Lactic acidosis: Patient received IV fluids. Repeat levels. DVT prophylaxis: Lovenox Code status: Full code Quality Stroke Does the patient have a stroke diagnosis?: No VTE Prior VTE?: No VTE Risk Level:: Medical - moderate - high VTE Device Contraindication: Treatment Not Indicated VTE Drug Contraindication: N/A - Med Ordered
[2021-07-26] MEDS: 0.9 % Sodium Chloride 1,000 ML 100 ML IVCONT ×2 (02:55→11:35)
[2021-07-26 03:09] LABS: ~Lactic Acid-LAB USE ONLY 2.4 mmol/L (0.5-2.0)
--- NOTE | 2021-07-26 03:58 | PC.NURSE ---
nurse to nurse report given to Melvi HUERTA
[2021-07-26 04:50] LABS: Reflex Lactate? 2 Y
[2021-07-26 06:32] LABS: ~Lactic Acid-LAB USE ONLY 2.3 mmol/L (0.5-2.0)
--- NOTE | 2021-07-26 08:01 | PHA.MEDREC ---
Pharmacy Consult ? Medication Reconciliation Pharmacy has completed the medication reconciliation. Patient did not start medications prescribed at the ED two days ago including flovent and prednisone. Christa Aguilar, PharmD
[2021-07-26 08:15] LABS: MANUAL DIFF FLAG NO
[2021-07-26 08:18] LABS: Basophils Percent Auto 0.2 % (0-2); Eosinophils Absolute Auto 0.1 X10*3/uL (0.0-0.4); Eosinophils Percent Auto 0.4 % (0-4); Hematocrit 40.8 % (42.0-52.0); Hemoglobin 13.2 g/dl (14.0-18.0); Imm Gran Abs Auto 0.11 X10*3/uL (0.00-0.03); Imm Gran Pct Auto 0.7 % (0.0-0.4); Lymphocytes Absolute Auto 1.2 X10*3/uL (1.2-4.9); Lymphocytes Percent Auto 7.4 % (20-40); Mean Corpuscular HGB Conc 32.4 g/dl (31.0-36.0); Mean Corpuscular Hemoglobin 26.7 pg (27.0-33.0); Mean Corpuscular Volume 82.6 fL (80.0-98.0); Mean Platelet Volume 10.2 fL (9.4-12.4); Monocytes Absolute Auto 1.3 X10*3/uL (0.1-1.2); Monocytes Percent Auto 8.1 % (2-11); Neutrophils Absolute Auto 13.7 x10*3/uL (2.0-8.3); Neutrophils Percent Auto 83.2 % (45-73); Platelet Count 251 X10*3/uL (160-400); Red Blood Count 4.94 X10*6/uL (4.60-5.80); Red Cell Distribution Width 13.9 % (11.0-16.0); White Blood Count 16.5 X10*3/uL (4.8-10.8)
--- NOTE | 2021-07-26 08:18 | PC.NURSE ---
Pt received from assistant shift supervisor: Pt AOX4 and c/o nausea. MD Hameed aware and orders received for PRN zofran. NSR noted and lungs clear. No neuro deficits noted. Pt abd soft and non-tender. No noted vomiting or diarrhea.
--- NOTE | 2021-07-26 08:24 | PC.NURSE ---
Pt update given to pt's Kristin: [phone] Pt's stated she would like to discuss case with MD Hameed, and also wondering the reasoning why pt did not receive CT(head). made aware of conversation.
[2021-07-26 08:40] LABS: Anion Gap 10 (12-20); Blood Urea Nitrogen 20 mg/dL (9-16); Carbon Dioxide 24 mmol/L (22-29); Chloride 112 mmol/L (96-108); Creatinine Clr Calc Pharmacy 111.7; Estimated Glomerular Filt Rate > 60; Glucose Random 89 mg/dL (60-115); Potassium 4.4 mmol/L (3.3-5.1); Sodium 142 mmol/L (135-145)
[2021-07-26 08:47] LABS: Calcium 8.4 mg/dL (8.4-10.2)
[2021-07-26] MEDS: Enoxaparin Sodium 40 MG/0.4 ML SYRINGE SUBCUT (08:53)
--- NOTE | 2021-07-26 09:35 | MHC.CM.PN ---
PT REPORTS HE LIVES AT HOME WITH HIS AND KIDS AND IS FULLY INDEPENDENT, PT WORKS AND DRIVES PT HAS NO HOME/COMMUNITY SERVICES PT DOES NOT HAVE ANY DME BUT REPORTS HE USES HIS SONS NEBULIZER PRN. HE HAS NEVER BEEN PRESCRIBED ONE. PT REPORTS HE HAS THE PAPERWORK AT HOME TO COMPLETE A HCP. HE DECLINES TO COMPLETE ONE TODAY AND SAYS HE WILL DO IT AT HOME. PT CONFIRMS HIS PCP IS MARY CARMEN READ PT REPORTS HE HAS NOT RECEIVED ANY OF THE COVID-19 VACCINES CURRENT DC PLAN IS HOME WITH NO SERVICES PT WILL SELF-ARRANGE TRANSPORT
--- NOTE | 2021-07-26 11:59 | PM.EVENT ---
Event Note Date of Service: 07/26/21 Event Note: patient admitted early this morning therefore please review detail history and physical done earlier by Dr. Mario. Briefly this is a 50-year-old gentleman with past medical history significant for asthma, hypertension and retinal where occlusion presented to [facility] after an episode of syncope according to the patient he was not feeling well he acidity evening with his stomach growling he felt nauseous later he had an episode of diarrhea followed by nausea felt like vomiting he coughed and then he passed out, he denied any preceding symptoms of chest pain palpitation lightheadedness dizziness, never had similar episode in the past, workup in the ER showed CT abdomen with no acute findings EKG no acute ischemia, normal troponins, no multi dimer patient noted to have positive orthostatic studies recent chest x-ray 07/24 was unremarkable UA unremarkable Nausea/vomiting /diarrhea, Likely gastroenteritis.? CT abdomen showed no acute findings, continue supportive care with antiemetics, analgesics follow clinical course,leukocytosis likely related to recent use of prednisone, will follow blood cultures lactic acidosis likely due to dehydration continue IV fluids, follow labs ? Syncope:? Preceded by nausea/ diarrhea mostlikley orthostatic hypotension vs vasovagal syncope / normal neuro exam CT Head not warranted, follow neurological status at present patient hemodynamically stable continue tele monitor Exam grossly nonfocal.? EKG showed no evidence of bradycardia or AV block.? Telemetry.? Echocardiogram.? Orthostatic vitals. ?orthostatic Hypotension:? likely related to GI loss with nausea vomiting continue IV fluids repeat orthostatic blood pressures Shortness of breath evaluated in emergency room on 07/24 due to shortness of breath, chest pain with exertion, all workup was negative patient was discharged home on prednisone with concern for asthma exacerbation,at present patient has no acute exacerbation Lung sounds are clear.? Chest x-ray showed no acute findings.? EKG nonischemic.? Troponins negative.? COVID-19 negative.? D-dimer negative. will continue home inhalers Asthma no acute exac. resume home inhalers ?DVT prophylaxis:? Lovenox Code status: Full code
--- NOTE | 2021-07-26 13:16 | PC.NURSE ---
Pt denies any diarrhea this morning. However as the day progressed, pt has been up to [facility] several times for diarrhea. MD Hameed aware.
[2021-07-26 18:30] LABS: CDiff Gene PCR NEGATIVE (Negative)
[2021-07-26] MEDS: Fluticasone Propionate 250 MCG BLST.W.DEV 1 PUFF INHALE (20:15)
--- NOTE | 2021-07-26 23:41 | PC.NURSE ---
This nurse took over patient's care at 1900. Patient alert and oriented x3, denies any pain or discomfort, denies nausea at this time. Reports last loose bowel movement prior to change of shift 0, patient reports bm's are less watery today vs. yesterday. Abdomen soft, nontender, lungs clear, vss. Call jackson within reach.
--- NOTE | 2021-07-26 23:45 | PC.NURSE ---
Report given to nurse on med surge floor
[2021-07-27 00:24] VITALS: BMI 31.1
[2021-07-27] MEDS: 0.9 % Sodium Chloride 1,000 ML 100 ML IVCONT (00:34)
[2021-07-27] MEDS: 0.9 % Sodium Chloride Flush 3 ML SYRINGE IVFLUSH (00:34)
[2021-07-27 00:46] VITALS: BP 146/92; PULSE 78; RESP 18; TEMP 36.6; O2SAT 98
[2021-07-27 00:49] VITALS: BP 144/88; PULSE 78
[2021-07-27] MEDS: ondansetron HCL 4 MG/2 ML VIAL IVPUSH (02:33)
[2021-07-27 03:59] VITALS: BP 140/78; PULSE 65; RESP 18; TEMP 36.9; O2SAT 99
[2021-07-27 06:17] LABS: MANUAL DIFF FLAG NO
[2021-07-27 06:19] LABS: Basophils Percent Auto 0.3 % (0-2); Eosinophils Absolute Auto 0.2 X10*3/uL (0.0-0.4); Hematocrit 38.8 % (42.0-52.0); Hemoglobin 12.4 g/dl (14.0-18.0); Imm Gran Abs Auto 0.06 X10*3/uL (0.00-0.03); Imm Gran Pct Auto 0.6 % (0.0-0.4); Lymphocytes Absolute Auto 1.1 X10*3/uL (1.2-4.9); Lymphocytes Percent Auto 11.7 % (20-40); Mean Corpuscular Hemoglobin 26.4 pg (27.0-33.0); Mean Corpuscular Volume 82.6 fL (80.0-98.0); Mean Platelet Volume 10.3 fL (9.4-12.4); Monocytes Absolute Auto 1.2 X10*3/uL (0.1-1.2); Monocytes Percent Auto 12.2 % (2-11); Neutrophils Absolute Auto 7.2 x10*3/uL (2.0-8.3); Neutrophils Percent Auto 73.2 % (45-73); Platelet Count 228 X10*3/uL (160-400); Red Cell Distribution Width 13.9 % (11.0-16.0); White Blood Count 9.8 X10*3/uL (4.8-10.8)
[2021-07-27 06:41] LABS: Anion Gap 10 (12-20); Blood Urea Nitrogen 14 mg/dL (9-16); Calcium 8.2 mg/dL (8.4-10.2); Carbon Dioxide 24 mmol/L (22-29); Chloride 110 mmol/L (96-108); Creatinine Clr Calc Pharmacy 118.6; Estimated Glomerular Filt Rate > 60; Glucose Random 101 mg/dL (60-115); Potassium 3.8 mmol/L (3.3-5.1); Sodium 140 mmol/L (135-145)
[2021-07-27 07:27] VITALS: BP 145/88; PULSE 63; RESP 18; TEMP 37.1; O2SAT 97
--- NOTE | 2021-07-27 09:56 | MHC.CM.PN ---
PATIENT IS DC TODAY - SELF CARE HE IS ABLE TO ARRANGE HIS OWN TRANSPORT HOME. CASE MANAGEMENT AVAILABLE IF HE EXPERIENCES ANY OBSTACLES SECONDARY TO TODAY'S WEATHER. RN AWARE OF PLAN
--- NOTE | 2021-07-27 09:57 | P.DS_ITS ---
DS: Providers Provider Date of Service: 07/27/21 Date of admission: 07/26/21 02:16 Primary care physician: Jelena Hammonds MD DS: Diagnosis Discharge Diagnosis (1) Syncope: Status: Acute (2) Hypotension: Status: Acute (3) Diarrhea: Status: Acute (4) SOB (shortness of breath): Status: Acute DS: Summary Hospital Course Hospital Course: 50-year-old gentleman with past medical history significant for asthma, hypertension and retinal vein occlusion presented to [facility] after an episode of syncope according to the patient he was not feeling well with indigestion, his stomach growling, he felt nauseous later he had an episode of diarrhea followed by nausea felt like vomiting he coughed and then he passed out, he denied any preceding symptoms of chest pain palpitation lightheadedness dizziness, never had similar episode in the past,?workup in the ER showed a CT abdomen with no acute findings, EKG no acute ischemia, normal troponins, normal d-dimer, chest x-ray unremarkable 07/24, UA unremarkable, had elevated lactic acidosis, leukocytosis and noted to have positive orthostatic studies, patient admitted to medical floor was placed on IV fluids ,analgesics and anti emetics, leukocytosis was most likely related to steroids that he was placed on couple days ago for asthma exacerbation, no source of infection was found, it was felt syncope is related to ? vasovagal vs orthostatic hypotension due to significant GI losses, patient responded well to above treatment, diet has been gradually advanced that he is tolerating well since he is hemodynamically is stable with no further bout of nausea vomiting diarrhea blood pressure has improved therefore he is being discharged home he has dose of candesartan has been reduced to 4 mg from a baseline dose of 16 mg a he has been recommended to take low residue soft diet. Of note patient was evaluated in emergency room on July 24 due to shortness of breath and chest pain with exertion all workup during that ER visit was unremarkable including a chest x-ray and EKG and troponin during this hospitalization patient noted to have no acute asthma exacerbation, therefore he has been recommended to continue home inhalers. ? ? Time Spent with Patient Time attestation: Total time spent providing and/or coordinating discharge services: Discharge coordination time: Greater than 30 minutes Quality: Stroke Does the patient have a stroke diagnosis?: No Physical Exam Verdana 4l Vital Signs: Verdana 4d Verdana 4d Vital Signs: Verdana 4d Verdana 4Bd Last Vital Signs Verdana 4d Rubber Off New 4d Rubber Off New 4d Temp 98.8 F 07/27/21 07:27 Rubber Off New 4d Pulse 63 07/27/21 07:27 Rubber Off New 4d Resp 18 07/27/21 07:27 BP 145/88 H 07/27/21 07:27 Pulse Ox 97 07/27/21 07:27 BMI result Body Mass Index 31.1 Const: Other: Gen: Appears be in no acute distress HEENT:? PERRLA, Moist mucosa. Pulmonary:? Vesicular breath sounds, fair air entry CVS:? Normal S1-S2 Abdomen: BS+, Soft, Nontender Extremities:? Warm well perfused Skin normal skin turgor Neuro:? Alert and awake. grossly nonfocal psych appropriate affect DS: Data Data Completed and Pending Labs on day of discharge: Laboratory Results - last 24 hr 07/26/21 07/27/21 07/27/21 17:21 05:45 05:45 WBC 9.8 RBC 4.70 Hgb 12.4 L Hct 38.8 L MCV 82.6 MCH 26.4 L MCHC 32.0 RDW 13.9 Plt Count 228 MPV 10.3 Immature Gran % (Auto) 0.6 H Neut % (Auto) 73.2 H Lymph % (Auto) 11.7 L Estill % (Auto) 12.2 H Eos % (Auto) 2.0 Baso % (Auto) 0.3 Lymph # (Auto) 1.1 L [place] # (Auto) 1.2 Eos # (Auto) 0.2 Baso # (Auto) 0.0 Abs Immat Gran (auto) 0.06 H Absolute Neuts (auto) 7.2 Absolute Nucleated RBC 0.000 Nucleated RBC % (auto) 0.0 Sodium 140 Potassium 3.8 Chloride 110 H Carbon Dioxide 24 Anion Gap 10 L BUN 14 Creatinine 0.79 Estim Creat Clear Calc 118.6 Estimated GFR > 60 Random Glucose 101 Calcium 8.2 L C. difficile Tox B Gene NEGATIVE Preliminary micro results at discharge 07/26/21 17:21 Stool Culture - Preliminary Stool No growth to date. 07/26/21 01:14 Blood Culture - Preliminary Blood - Venous No growth after 24 hours. 07/26/21 00:44 Blood Culture - Preliminary Blood - Venous No growth after 24 hours. Discharge Plan Discharge Patient Disposition: Home, Self-Care Discharge Diagnosis: syncope due to orthostatic hypotension gastroenteritis leukocytosis Referrals: Jelena Hammonds MD [Primary Care Provider] - 1 Week Discharge Medications: New candesartan 4 mg tablet 4 mg PO DAILY Qty: 30 0RF Continued albuterol sulfate 90 mcg/actuation HFA aerosol inhaler 2 inh inhalation Q6H PRN (Reason: shortness of breath or wheezing) Qty: 8.5 5RF lidocaine 4 % adhesive patch,medicated 1 patch topical DAILY PRN (Reason: pain) Qty: 10 0RF Rx Instructions: may leave on for up to 12 hrs Flovent HFA 220 mcg/actuation HFA aerosol inhaler 1 puff inhalation BID Qty: 12 0RF albuterol sulfate 2.5 mg /3 mL (0.083 %) solution for nebulization 2.5 mg inhalation Q4-6H PRN (Reason: shortness of breath or wheezing) Qty: 75 0RF Discontinued candesartan 16 mg tablet 16 mg PO DAILY Qty: 90 3RF prednisone 20 mg tablet 60 mg PO DAILY 5 Days Qty: 15 0RF Discharge Orders: Discharge Order (Routine); Ordered 07/27/21 Ordered By: Bryanna Hameed Diet: low fat, low cholesterol Activity on Discharge: As tolerated Stand Alone Forms: Patient Portal Discharge page Care Plan Goals: episode of unresponsiveness due to orthostatic hypotension likely related to gastroenteritis,dose of candesartan reduced to 4 mg follow blood pressure closely and adjust dose of medication as per blood pressure readings take low residue soft diet for next few days, drink plenty of fluids Health Concerns: continue all other home medications for asthma Plan of Treatment: follow-up with primary care physician in 1-2 weeks call to make an appointment Assessment: per discharge summary
== END 2021-07-27 11:54 | disposition home or self-care (01) | DRG 249 ==
LOC: HO.ED 07-26 01:10 → HO.EDOVER 07-26 02:30 → HO.S3 07-26 22:59
PROVIDERS: Admitting Provider Hospitalist; Emergency Provider Internal Medicine; PCP Internal Medicine; Visit Provider Hospitalist
DX: K52.9 Noninfective gastroenteritis and colitis, unspecified (principal); D72.829 Elevated white blood cell count, unspecified; I95.1 Orthostatic hypotension; E66.9 Obesity, unspecified; G89.29 Other chronic pain; Z20.822 Contact with and (suspected) exposure to COVID-19; Z68.31 Body mass index [BMI] 31.0-31.9, adult; Z79.51 Long term (current) use of inhaled steroids; Z88.0 Allergy status to penicillin; Z79.899 Other long term (current) drug therapy
CPT/HCPCS: 36415; 74176; 80048; 80053; 83605; 83735; 84484; 85025; 87040; 87045; 87046; 87493; 87635; 93005; 94640; 96361; 96374; 96375; 99285; J1650; J1956; J2405

== ENCOUNTER 2022-07-04 06:20 | Emergency (ER) | payer OTHER, SELFPAY ==
[2022-07-04 06:31] VITALS: BP 144/90; PULSE 64; RESP 20; O2SAT 95; BMI 29.7
[2022-07-04 07:16] LABS: Influenza A PCR NEGATIVE (Negative); Influenza B PCR NEGATIVE (Negative); Resp Syncy Virus RNA Qual PCR NEGATIVE (Negative); SARS COV2 PCR INHOUSE NEGATIVE (Negative)
--- NOTE | 2022-07-04 07:48 | ED_ITS ---
HPI - SOB/Dyspnea General Chief Complaint: Upper Respiratory Symptoms Stated Complaint: diff breathing, sore throat Time Seen by Provider: 07/04/22 07:17 Source: patient Mode of arrival: ambulatory History of Present Illness HPI Narrative: 51-year-old male with history of hypertension currently on candesartan, states he had acute onset of throat discomfort this morning that was associated with a ?squeezing sensation? and the sensation of difficulty breathing but denies any fevers, chills, exposure to viral illness and denies any GI or symptoms. Patient states he feels like his voice still sounds ?weird?. Related Data Previous Rx's Medication Instructions Recorded albuterol sulfate 2.5 mg/3 mL 2.5 mg (3 mL) inhalation Q4-6H PRN 07/24/21 (0.083 %) solution for nebulization shortness of breath or wheezing #75 mL fluticasone propionate 220 1 puff inhalation BID #12 grams 07/24/21 mcg/actuation HFA aerosol inhaler (Flovent HFA) doxycycline hyclate 100 mg tablet 100 mg PO BID 10 days #20 tabs 01/23/22 prednisone 50 mg tablet 50 mg PO DAILY 6 days #6 tabs 01/23/22 albuterol sulfate 90 mcg/actuation 2 inh inhalation Q6H PRN shortness 06/03/22 aerosol inhaler of breath or wheezing #8.5 grams amlodipine 5 mg tablet (Norvasc) 5 mg PO DAILY #30 tabs 07/04/22 Allergies Allergy/AdvReac Type Severity Reaction Status Date / Time Iodinated Contrast Media Allergy Intermediate HIVES Verified 07/04/22 06:34 [IV CONTRAST] shrimp Allergy Intermediate THROAT Verified 07/04/22 06:34 SWELLING/ITCHING iopamidol [From Isovue-128] Allergy Mild HIVES Verified 07/04/22 06:34 Penicillins [PENICILLINS] Allergy Unknown REACTION Verified 07/04/22 06:34 UNKNOWN FRUIT, SKINS Allergy Intermediate THROAT Uncoded 08/02/21 12:27 SWELLING/ITCHING Dye MCC Blue 1 Allergy Unknown unknown Uncoded 08/02/21 12:27 Review of Systems Review of Systems: Pertinent positives and negatives as stated in the HPI [facility] Past Medical History Source: nursing notes reviewed Medical History Acute colitis Asthma HTN (hypertension) Obesity (BMI 30.0-34.9) Retinal vein occlusion Surgical History History of repair of left rotator cuff Family History Family History Father Prostate cancer Glaucoma Mother Essential hypertension Social History Social History Household Members: Spouse and Family Housing: House Patient Tobacco Use Status: Never used Tobacco e-Cigarette/Vaping Use: Never Used Second Hand Smoke Exposure: No Advance Directives: No service: No Current occupational status: employed Current occupational exposures/hazards: No Cognitive needs: No Hearing needs: No Vision needs: No Physical Exam Vital Signs: Vital Signs: Last Vital Signs Temp 97.1 F 07/04/22 08:40 Pulse 60 07/04/22 09:18 Resp 13 07/04/22 09:18 BP 147/97 H 07/04/22 09:18 Pulse Ox 97 07/04/22 09:18 O2 Del Method 07/04/22 09:18 BMI result Body Mass Index 29.7 VITAL SIGNS: Reviewed. GENERAL: Well developed, well nourished, in no acute distress. HEAD: Normocephalic/atraumatic EYES: PERRLA, EOMI i EARS: Ext canals without abnormality, TMs non-bulging and non-erythematous NOSE: Nares patent bilateral OROPHARYNX: no oral lesions noted, posterior pharynx clear and non-erythematous without noted tonsillar enlargement/erythema/exudates, no lip or facial swelling, questionable tongue tip swelling NECK: Supple, no adenopathy LUNGS: Good inspiratory effort, no stridor, I do not appreciate any expiratory or inspiratory wheeze, no rhonchi or rales and no tachypnea noted. SpO2<95> CARDIOVASCULAR: Regular rate and rhythm without noted murmurs ABDOMEN: Soft, non-tender, non-distended with bowel sounds. MUSCULOSKELETAL: No tenderness, deformities, or effusions noted on gross inspection. EXTREMITIES: No cyanosis, clubbing or edema. SKIN: Inspection of the skin reveals no rashes NEUROLOGIC: Alert and oriented x 4. Strength and sensation to light touch were grossly intact x 4. Medications Administered Discontinued Medications Generic Name Dose Route Start Last Admin Trade Name Chrissy PRN Reason Stop Dose Admin Diphenhydramine HCl 50 mg 07/04/22 07:47 07/04/22 08:01 Diphenhydramine Hcl 50 Mg/Ml Vial IVPUSH 07/04/22 07:48 50 mg ONCE ONE Administration Famotidine 20 mg 07/04/22 07:47 07/04/22 08:01 Famotidine/Pf 20 Mg/2 Ml Vial IVPUSH 07/04/22 07:48 20 mg ONCE ONE Administration Methylprednisolone Sodium Succinate 125 mg 07/04/22 07:47 07/04/22 08:01 Methylprednisolone Sod Succ 125 Mg/2 Ml Vial IVPUSH 07/04/22 07:48 125 mg ONCE ONE Administration Medical Decision Making Medical Decision Making [facility] Narrative: 51-year-old male with acute onset of throat discomfort and viral testing is negative and currently on candesartan. My interpretation is this patient is likely having a reaction to his blood pressure medication and will be treated with a combination Benadryl/Pepcid/steroids and observed. 0800: On re-evaluation patient is feeling better. 1030: On re-evaluation patient continues to demonstrate improvement, I do not notice as significant voice changes. He is going to be discharged home in stable condition and he was instructed to no longer take his current blood pressure medication and I discharged him on 5 mg of Norvasc with strict instructions to follow-up with his primary care provider. In addition he was given strict return precautions. Differential Diagnosis Differential Diagnoses: The differential diagnosis associated with the presentation includes Please see the discussion above Lab Data [facility] Lab Attestation statement: I reviewed the patient's lab results. Please see the discussion above Labs: Lab Results 07/04/22 Range/Units 06:36 Influenza Type A (PCR) NEGATIVE (Negative) Influenza Type B (PCR) NEGATIVE (Negative) RSV RNA Qual (PCR) NEGATIVE (Negative) SARS-CoV-2 RNA (RT-PCR) NEGATIVE (Negative) Critical Care Time Critical Care Time Critical Care Time: Yes Total Critical Care Time: 45 Attestation: I personally attest to this time spent taking care of the patient. Discharge Plan Discharge Clinical Impression: Angioedema, Medication adverse effect Patient Disposition: Home, Self-Care Instructions: Angioedema (ED) Additional Instructions: 1. You no longer should take any blood pressure medications in this class of blood pressure medications, I will leave this discussion to be dealt with further with your primary care provider. 2. I have started you on an alternate blood pressure medication which you should start today. 3. Call the office of your primary care provider today and I will be sending my note over. Do not hesitate to return to the emergency room for any worsening of symptoms. Prescriptions: New amlodipine [Norvasc] 5 mg tablet 5 mg PO DAILY Qty: 30 0RF Discontinued candesartan 4 mg tablet 16 mg PO DAILY Qty: 360 1RF No Action doxycycline hyclate 100 mg tablet 100 mg PO BID 10 Days Qty: 20 0RF prednisone 50 mg tablet 50 mg PO DAILY 6 Days Qty: 6 0RF albuterol sulfate 90 mcg/actuation HFA aerosol inhaler 2 inh inhalation Q6H PRN (Reason: shortness of breath or wheezing) Qty: 8.5 5RF Flovent HFA 220 mcg/actuation HFA aerosol inhaler 1 puff inhalation BID Qty: 12 0RF albuterol sulfate 2.5 mg /3 mL (0.083 %) solution for nebulization 2.5 mg inhalation Q4-6H PRN (Reason: shortness of breath or wheezing) Qty: 75 0RF Referrals: Jelena Hammonds MD [Primary Care Provider] - (I suspect patient had angioedema secondary to candesartan. Medication was stopped and he was started on 5 mg of Norvasc.) Stand Alone Forms: Work/School Release
[2022-07-04] MEDS: diphenhydrAMINE HCL 50 MG/ML VIAL IVPUSH (08:01)
[2022-07-04] MEDS: Famotidine/PF 20 MG/2 ML VIAL IVPUSH (08:01)
[2022-07-04] MEDS: methylPREDNISolone Sod Succ 125 MG/2 ML VIAL IVPUSH (08:01)
--- NOTE | 2022-07-04 08:13 | PC.NURSE ---
PIV IN PLACE, MEDICATED PER EMR. PT IN NAD AT THIS TIME, AIRWAY PATENT. PT REPORTS PAIN WITH SWALLOWING, SLIGHT VOICE CHANGE. WCTM.
[2022-07-04 08:40] VITALS: BP 159/91; PULSE 50; RESP 15; TEMP 36.2; O2SAT 99
[2022-07-04 09:18] VITALS: BP 147/97; PULSE 60; RESP 13; O2SAT 97
[2022-07-04 11:07] VITALS: BP 137/96; PULSE 72; RESP 16; O2SAT 96
== END 2022-07-04 11:31 | disposition home or self-care (01) ==
PROVIDERS: Emergency Provider Student in an Organized Health Care Education/Training Program; PCP Internal Medicine
DX: T78.3XXA Angioneurotic edema, initial encounter (principal); T46.5X5A Adverse effect of other antihypertensive drugs, initial encounter; Y92.019 Unspecified place in single-family (private) house as the place of occurrence of the external cause; I10 Essential (primary) hypertension; Z20.822 Contact with and (suspected) exposure to COVID-19; Z20.828 Contact with and (suspected) exposure to other viral communicable diseases
CPT/HCPCS: 0241U; 96374; 96375; 99284; J1200; J2930

== ENCOUNTER 2022-08-08 08:17 | Outpatient (AMB) | payer OTHER, SELFPAY ==
--- NOTE | 2022-08-08 08:19 | MHC.PC.OV ---
Vital Signs 08/08/22 08:21 Height 5 ft 7 in Weight 195 lb BMI 30.5 BP 120/70 Blood Pressure Location Lt brachial Position Sitting Pulse 59 Pulse Source Pulse Oximeter Pulse Oximetry (%) 97 Oxygen Delivery Method Room Air Intake Visit Reasons: Physical Exam Intake Note: Pt is here today for his PE Allergies candesartan Allergy (Severe, Verified 01/16/23 09:14) angioedema Iodinated Contrast Media [IV CONTRAST] Allergy (Intermediate, Verified 01/16/23 09:14) HIVES shrimp Allergy (Intermediate, Verified 01/16/23 09:14) THROAT SWELLING/ITCHING iopamidol [From Isovue-128] Allergy (Mild, Verified 01/16/23 09:14) HIVES Penicillins [PENICILLINS] Allergy (Unknown, Verified 01/16/23 09:14) REACTION UNKNOWN FRUIT, SKINS Allergy (Intermediate, Uncoded 01/16/23 09:14) THROAT SWELLING/ITCHING Dye JAIL Blue 1 Allergy (Unknown, Uncoded 01/16/23 09:14) unknown Medication List - Last Reconciled 08/08/22 by Jelena Hammonds MD albuterol sulfate 90 mcg/actuation 2 inhalations inhalation Q6H PRN amlodipine (Norvasc) 5 mg PO DAILY epinephrine (EpiPen 2-Chevy) 0.3 mg (0.3 mL) IM Q4H PRN Tobacco use date assessed: 08/08/22 HPI Physical Exam HPI Details 52-year-old male with hypertension, currently stable controlled on amlodipine 5 mg once a day, has history of angioedema due to candesartan has EpiPen, here today for his physical exam. He c/o muscle cramps , usually at night PFSH Medical History (Updated 03/24/23 @ 00:58 by Jelena Hammonds MD) Numbness and tingling of both legs below knees CRVO (central retinal vein occlusion) Annual visit for general adult medical examination with abnormal findings Hx of angioedema Acute colitis Obesity (BMI 30.0-34.9) Retinal vein occlusion HTN (hypertension) Asthma Surgical History History of repair of left rotator cuff Family History Father Prostate cancer Glaucoma Mother Essential hypertension Social History Household Members: Spouse and Family Housing: House Alcohol intake: current Alcohol intake frequency: holidays/special occasions only Patient Tobacco Use Status: Never used Tobacco e-Cigarette/Vaping Use: Never Used Second Hand Smoke Exposure: No service: No Current occupational status: employed Current occupational exposures/hazards: No Cognitive needs: No Hearing needs: No Vision needs: Yes Questionnaire PHQ-9 Over the last 2 weeks, how often have you been bothered by any of the following problems? 1. Little interest or pleasure in doing things: not at all 2. Feeling down, depressed, or hopeless: not at all 3. Trouble falling or staying asleep, or sleeping too much: not at all 4. Feeling tired or having little energy: not at all 5. Poor appetite or overeating: not at all 6. Feeling bad about yourself - or that you are a failure or have let yourself or your family down: not at all 7. Trouble concentrating on things, such as reading the newspaper or watching television: not at all 8. Moving or speaking so slowly that other people could have noticed. Or the opposite - being so fidgety or restless that you have been moving around a lot more than usual: not at all 9. Thoughts that you would be better off or of hurting yourself in some way: not at all Total score: 0 Depression Screening Interpretation: Negative 51726 - PHQ-9 Billing: Yes Source: Developed by Drs. Shane Brown, Leighann Tolliver, Gus Solitario and colleagues, with an educational sher from [employer]. Thrive Questionnaire Date Thrive assessed: 08/08/22 I am a: Patient What is your living situation today?: I have a steady place to live Within the past 12 months, did the food you bought not last and you didn't have the money to get more?: Never true Within the past 12 months, did you worry whether your food would run out before you got money to buy more?: Never true Do you have trouble paying for medicines?: No Do you have trouble getting transportation to medical appointments?: No Do you have trouble paying your heating and electricity bill?: No Do you have trouble taking care of your child, family member or friend?: No Do you have trouble with day-to-day activities such as bathing, preparing meals, shopping, managing finances, etc.?: No Are you currently unemployed and looking for a job?: No Are you interested in more education?: No AUDIT C Alcohol Use Questionnaire (AUDIT-C) 1. How often do you have a drink containing alcohol?: Monthly or less 2. How many drinks containing alcohol do you have on a typical day when you are drinking?: 1 or 2 3. How often do you have six or more drinks on one occasion?: Never Total Score: 1 JOELLEN-7 AMB Questionnaire JOELLEN-7 Date JOELLEN - 7 assessed: 08/08/22 Feeling nervous, anxious, or on edge: 0 = Not at all Not being able to stop or control worryin = Not at all Worrying too much about different things: 0 = Not at all Trouble relaxin = Not at all Being so restless that it is hard to sit still: 0 = Not at all Becoming easily annoyed or irritable: 0 = Not at all Feeling afraid as if something awful might happen: 0 = Not at all Total JOELLEN-7 score (0-4 normal; 5-9 mild; 10-14 moderate; 15-21 severe): 0 Source: Developed by Drs. Shane Brown, Leighann Tolliver, Gus Solitario and colleagues, with an educational sher from [employer]. JOELLEN-7 Assessment Billing JOELLEN-7 Assessment Tool: JOELLEN-7 Assessment 13647 Review of Systems Const Denies fatigue, Denies fever(s), Denies headache(s) and Denies weakness Eyes Reports blurry vision (left eye) and Denies change in vision ENT Denies dizziness, Denies ear discharge, Denies headache(s), Denies nasal congestion, Denies nasal discharge, Reports tinnitus (AU) and Denies sore throat Card Denies chest pain, Denies lightheadedness, Denies palpitations and Denies dyspnea Resp Denies chest congestion, Denies cough, Denies dyspnea and Denies wheezing GI Denies abdominal pain, Denies change in bowel habits and Denies heartburn Denies dysuria, Denies urinary frequency and Denies urinary urgency Musc Reports no additional complaints Skin/Breast Denies lesions and Denies rash Neuro Denies dizziness, Denies headache(s) and Denies weakness Psych Reports no additional complaints Endo Denies fatigue and Denies palpitations Kunal/Lymph Denies easy bleeding and Denies easy bruising Aller/Immun Denies wheezing Physical exam (Primary Care) Vital Signs: Last Vital Signs Pulse 59 08/08/22 08:21 BP 120/70 08/08/22 08:21 Pulse Ox 97 08/08/22 08:21 Oxygen Delivery Method Room Air 08/08/22 08:21 BMI result Body Mass Index 30.5 BMI Assessment/Plan discussion: High BMI High, discussed plan: lifestyle, weight reduction, dietary and physical activity Tobacco/Smoking Status: Tobacco use Status Tobacco use date assessed 08/08/22 08/08/22 08:25 Patient Tobacco Use Status Never used Tobacco 08/08/22 08:25 e-Cigarette/Vaping Use Never Used 08/08/22 08:25 PHQ-9: PHQ-9 Score PHQ-9: Total score 0 08/08/22 09:35 Depression Screening Interpretation: Negative Thrive Assessment: Date of Thrive Assessment Date Thrive assessed 08/08/22 08/08/22 08:32 Const Other: Alert oriented x3, ambulatory normal gait, accompanied by Nutritional Appearance: obese Orientation/consciousness: patient oriented x3 HENMT Head: Yes normocephalic Mouth: Normal oral and palatal mucosa present, oropharynx normal and moist mucous membranes Eyes General: appearance normal, both eyes and all related structures Neck Neck: Yes full ROM, Yes no lymphadenopathy and Yes supple Resp Effort & Inspection: normal respiratory effort and able to speak in complete sentences Auscultation: clear to auscultation bilaterally Cardio Other: S1-S2 present regular rate and rhythm Peripheral pulses: popliteal pulses present, posterior tibial pulses present and dorsalis pedis present General: Yes no CVA tenderness Male General Exam: Yes normal external exam Penis: uncircumcised Meatus: meatus normal Scrotum: scrotum normal, testes descended bilaterally, no inguinal hernias and no masses Testes: Testes normal and no testicular mass Back/Spine/Pelvis Back: no CVA tenderness Skin General skin exam: no rashes or lesions noted Neuro General: patient oriented x3, gait normal, tone normal, moves all extremities, Normal light touch and pain sensation, no focal motor deficits, CN's II-XI intact bilaterally and normal sensation to monofilament Extrem General: Yes full ROM, Yes capillary refill normal, Yes no joint enlargement, Yes no clubbing, cyanosis or edema, Yes no calf tenderness and Yes normal gait Psych Appearance: grossly normal Mental Status: mental status grossly normal Affect: normal affect Thought process: Normal thought process present Assessment and Plan Assessment & Plan (1) HTN (hypertension): Code(s): I10 - Essential (primary) hypertension Qualifiers: Hypertension type: primary hypertension Qualified Code(s): I10 - Essential (primary) hypertension Plan: Blood pressure at goal of less than 130/80. Continue with amlodipine to 5 mg daily. Reinforced importance of following a low sodium diet, getting regular exercise, and lowering stress levels. (2) Obesity (BMI 30.0-34.9): Code(s): E66.9 - Obesity, unspecified Plan: Recommended focusing on improving your health instead of dieting. : Eat Mediterranean diet, limit foods high in fat, sugar, and calories, eat slowly, pay attention to portion sizes, plan your meals ahead of time, start regular physical activity 150 minutes of moderate intensity exercise or 90 minutes/week of vigorous exercise and increase water intake. (3) Hx of angioedema: Code(s): Z87.898 - Personal history of other specified conditions Plan: Patient has EpiPen (4) Annual visit for general adult medical examination with abnormal findings: Code(s): Z00.01 - Encounter for general adult medical examination with abnormal findings Plan: Will check appropriate labs. Recommended dental visit every 6 months and regular eye exams, at least every 2 years. Take adequate calcium in diet and vitamin-D 3 at 2000 IU per cap once a day, in addition to weight-bearing exercises to help maintain good muscle tone and weight control. Instructed to do self-testicular exam check for any mass. Declines colonoscopy or getting any vaccinations (5) Muscle cramps: Code(s): R25.2 - Cramp and spasm Plan: Advised to try taking [id number] magnesium oxide 400 mg per tablet take 1 day will check magnesium level Orders: Orders Complete Blood Count Auto Diff 08/08/22 Z87.898 - Personal history of other specified conditions, I10 - Essential (primary) hypertension, E66.9 - Obesity, unspecified, Z00.01 - Encounter for general adult medical examination with abnormal findings IRON PROFILE 08/08/22 Z87.898 - Personal history of other specified conditions, I10 - Essential (primary) hypertension, E66.9 - Obesity, unspecified, Z00.01 - Encounter for general adult medical examination with abnormal findings Comprehensive [place]. Panel Fast 08/08/22 Z87.898 - Personal history of other specified conditions, I10 - Essential (primary) hypertension, E66.9 - Obesity, unspecified, Z00.01 - Encounter for general adult medical examination with abnormal findings Lipid Panel 08/08/22 Z87.898 - Personal history of other specified conditions, I10 - Essential (primary) hypertension, E66.9 - Obesity, unspecified, Z00.01 - Encounter for general adult medical examination with abnormal findings Vitamin D 25-OH Total 08/08/22 Z87.898 - Personal history of other specified conditions, I10 - Essential (primary) hypertension, E66.9 - Obesity, unspecified, Z00.01 - Encounter for general adult medical examination with abnormal findings Magnesium 08/08/22 R25.2 - Cramp and spasm Coding Level of Care Code Est Pt Prev Care 40-64y(24482) Diagnoses Primary hypertension I10 Hypertension type: primary hypertension Obesity (BMI 30.0-34.9) E66.9 Hx of angioedema Z87.898 Annual visit for general adult medical examination with abnormal findings Z00.01 Muscle cramps R25.2 Additional Codes JOELLEN-7 Assessment Billing - JOELLEN-7 Assessment Tool: JOELLEN-7 Assessment [id number] ([id number])
[2022-08-08 08:21] VITALS: BP 120/70; PULSE 59; O2SAT 97; BMI 30.5
== END 2022-08-08 10:16 | disposition home or self-care (01) ==
LOC: HO.HMGC 08:17
PROVIDERS: PCP Internal Medicine; Visit Provider Internal Medicine
DX: Z00.00 Encounter for general adult medical examination without abnormal findings (principal); I10 Essential (primary) hypertension; E66.9 Obesity, unspecified; Z68.30 Body mass index [BMI] 30.0-30.9, adult; Z87.898 Personal history of other specified conditions; R25.2 Cramp and spasm
CPT/HCPCS: 99396

== ENCOUNTER 2022-08-08 09:31 | Outpatient (REF) | payer OTHER, SELFPAY ==
[2022-08-08 11:24] LABS: MANUAL DIFF FLAG NO
[2022-08-08 11:34] LABS: Basophils Absolute Auto 0.1 X10*3/uL (0.0-0.2); Basophils Percent Auto 0.8 % (0-2); Eosinophils Absolute Auto 0.3 X10*3/uL (0.0-0.4); Eosinophils Percent Auto 2.3 % (0-4); Hematocrit 45.2 % (42.0-52.0); Hemoglobin 14.5 g/dl (14.0-18.0); Imm Gran Abs Auto 0.06 X10*3/uL (0.00-0.03); Imm Gran Pct Auto 0.5 % (0.0-0.4); Lymphocytes Absolute Auto 2.1 X10*3/uL (1.2-4.9); Lymphocytes Percent Auto 19.3 % (20-40); Mean Corpuscular HGB Conc 32.1 g/dl (31.0-36.0); Mean Corpuscular Hemoglobin 26.4 pg (27.0-33.0); Mean Corpuscular Volume 82.3 fL (80.0-98.0); Monocytes Absolute Auto 0.8 X10*3/uL (0.1-1.2); Monocytes Percent Auto 7.7 % (2-11); Neutrophils Absolute Auto 7.6 x10*3/uL (2.0-8.3); Neutrophils Percent Auto 69.4 % (45-73); Platelet Count 306 X10*3/uL (160-400); Red Blood Count 5.49 X10*6/uL (4.60-5.80); Red Cell Distribution Width 13.7 % (11.0-16.0)
[2022-08-08 12:09] LABS: Alanine Aminotransferase 30 U/L (0-40); Albumin Level 4.4 g/dL (3.5-5.0); Alkaline Phosphatase 110 U/L (39-117); Anion Gap 15 (12-20); Aspartate Amino Transferase 19 U/L (5-37); Bilirubin Total 0.5 mg/dL (0.0-1.0); Blood Urea Nitrogen 16 mg/dL (9-16); Calcium 9.7 mg/dL (8.4-10.2); Carbon Dioxide 27 mmol/L (22-29); Chloride 106 mmol/L (96-108); Cholesterol 189 mg/dL; Estimated Glomerular Filt Rate > 60; Glucose Fasting 91 mg/dL (60-99); HDL Cholesterol 45 mg/dL; Iron 70 mcg/dL (45-160); LDL Cholesterol Calculated 120 mg/dl; Magnesium 2.1 mg/dL (1.6-2.6); Percent Iron Saturation 30 % (15-50); Potassium 4.7 mmol/L (3.3-5.1); Sodium 143 mmol/L (135-145); Total Iron Binding Capacity 233 mcg/dL (228-428); Total Protein 6.8 g/dL (6.5-8.0); Triglycerides 124 mg/dL; Unsaturated Iron Binding 163 ug/dL
== END 2022-08-08 09:32 | disposition home or self-care (01) ==
LOC: HO.HMGCLDS 09:31
PROVIDERS: PCP Internal Medicine; Visit Provider Internal Medicine
DX: Z00.01 Encounter for general adult medical examination with abnormal findings (principal); E66.9 Obesity, unspecified; I10 Essential (primary) hypertension; R25.2 Cramp and spasm; E55.9 Vitamin D deficiency, unspecified; Z86.2 Personal history of diseases of the blood and blood-forming organs and certain disorders involving the immune mechanism; Z87.898 Personal history of other specified conditions
CPT/HCPCS: 36415; 80053; 80061; 82306; 83540; 83735; 85025

== ENCOUNTER 2022-12-28 05:31 | Emergency (ER) | payer OTHER, SELFPAY ==
[2022-12-28 05:46] VITALS: BP 154/106; PULSE 78; RESP 14; TEMP 36.6; O2SAT 96; BMI 31.0
--- NOTE | 2022-12-28 06:22 | ED.CHESTPAIN ---
HPI - Chest Pain General Chief Complaint: Chest Pain Stated Complaint: Chest Pain/ Back pain/ Leg pain Time Seen by Provider: 12/28/22 05:42 Source: patient Mode of arrival: ambulatory History of Present Illness HPI narrative: 52-year-old male who states he has been experiencing chest and back discomfort for the past 1-2 weeks that has been associated with shortness of breath but he denies any fever, chills. The chest tightness and shortness of breath resolve on resting. Otherwise, he denies any new cough or sore throat and denies any GI or symptoms. Patient does report he is having some posterior lower left extremity leg discomfort this started last night and is worse with flexion more than extension. Related Data Home Medications Medication Instructions Recorded Confirmed blood pressure monitor (Blood 12/05/22 12/05/22 Pressure Kit) Previous Rx's Medication Instructions Recorded albuterol sulfate 90 mcg/actuation 2 inh inhalation Q6H PRN shortness 06/03/22 aerosol inhaler of breath or wheezing #8.5 grams amlodipine 5 mg tablet (Norvasc) 5 mg PO DAILY #30 tabs 12/05/22 epinephrine 0.3 mg/0.3 mL 0.3 mg (0.3 mL) IM Q4H PRN 12/06/22 injection, auto-injector (EpiPen anaphylaxis #2 ea 2-Chevy) blood pressure monitor #1 ea 12/10/22 prednisone 50 mg tablet 50 mg PO DAILY 4 days #4 tabs 12/28/22 Allergies Allergy/AdvReac Type Severity Reaction Status Date / Time candesartan Allergy Severe angioedema Verified 12/28/22 05:44 Iodinated Contrast Media Allergy Intermediate HIVES Verified 12/28/22 05:44 [IV CONTRAST] shrimp Allergy Intermediate THROAT Verified 12/28/22 05:44 SWELLING/ITCHING iopamidol [From Isovue-128] Allergy Mild HIVES Verified 12/28/22 05:44 Penicillins [PENICILLINS] Allergy Unknown REACTION Verified 12/28/22 05:44 UNKNOWN FRUIT, SKINS Allergy Intermediate THROAT Uncoded 08/08/22 09:16 SWELLING/ITCHING Dye PENITENTIARY Blue 1 Allergy Unknown unknown Uncoded 08/08/22 09:16 Review of Systems Review of Systems: Pertinent positives and negatives as stated in HPI [facility] Past Medical History Source: nursing notes reviewed Medical History Acute colitis Annual visit for general adult medical examination with abnormal findings Asthma CRVO (central retinal vein occlusion) HTN (hypertension) Hx of angioedema Obesity (BMI 30.0-34.9) Retinal vein occlusion Surgical History History of repair of left rotator cuff Family History Family History Father Prostate cancer Glaucoma Mother Essential hypertension Social History Social History Household Members: Spouse and Family Housing: House Alcohol intake: current Alcohol intake frequency: holidays/special occasions only Patient Tobacco Use Status: Never used Tobacco Smoked in Last 30 Days: No e-Cigarette/Vaping Use: Never Used Second Hand Smoke Exposure: No Use of substances other than those prescribed or required for medical reasons: No Advance Directives: No Advance Directives Information Provided: No service: No Current occupational status: employed Current occupational exposures/hazards: No Cognitive needs: No Hearing needs: No Vision needs: Yes Physical Exam Vital Signs: Vital Signs: Last Vital Signs Temp 97.9 F 12/28/22 05:46 Pulse 80 12/28/22 06:47 Resp 13 12/28/22 06:47 BP 154/106 H 12/28/22 05:46 Pulse Ox 96 12/28/22 05:46 O2 Del Method Room Air 12/28/22 05:46 BMI result Body Mass Index 31.0 VITAL SIGNS: Reviewed. GENERAL: Well developed, well nourished, in no acute distress. HEAD: Normocephalic/atraumatic EYES: PERRLA, EOMI EARS: Ext canals without abnormality NOSE: Nares patent bilateral OROPHARYNX: no oral lesions noted, posterior pharynx clear NECK: Supple, no adenopathy LUNGS: Normal breath sounds. No adventitious sounds or accessory muscle use. SpO2<96> CARDIOVASCULAR: Regular rate and rhythm without noted murmurs, no JVD or lower extremity edema. ABDOMEN: Soft, non-tender, non-distended with bowel sounds. MUSCULOSKELETAL: No tenderness, deformities, or effusions noted on gross inspection. EXTREMITIES: No cyanosis, clubbing or edema; LEFT LOWER EXTREMITY: There is no noted effusion, erythema, induration, no palpable cords noted, no leg swelling in general noted. SKIN: Inspection of the skin reveals no rashes NEUROLOGIC: Alert and oriented x 4. Strength and sensation to light touch were grossly intact x 4. Medications Administered Discontinued Medications Generic Name Dose Route Start Last Admin Trade Name Chrissy PRN Reason Stop Dose Admin Acetaminophen 975 mg 12/28/22 06:32 12/28/22 06:54 Acetaminophen 325 Mg Tablet PO 12/28/22 06:33 975 mg ONCE ONE Administration Albuterol Sulfate 5 mg 12/28/22 06:31 12/28/22 06:46 Albuterol Sulfate (0.083%) 2.5 Mg/3 Ml Vial.Neb INHALE 12/28/22 06:32 5 mg ONCE ONE Administration Ibuprofen 400 mg 12/28/22 06:32 12/28/22 06:55 Ibuprofen 400 Mg Tablet PO 12/28/22 06:33 400 mg ONCE ONE Administration Medical Decision Making Medical Decision Making MDM Narrative: 52-year-old male with history and clinical presentation, DDX: Pneumonia, asthma, lower clinical suspicion for ACS, viral syndrome. Patient denies any traumatic injury or physical activity that would have led to his left lower extremity discomfort although there is no evidence to suggest thrombophlebitis, DVT, cellulitis. I reviewed all investigations and the hematologic indices are chronically stable without evidence of new infection or anemia. A suspect that the leukocytosis is secondary to stress as patient is afebrile and has no new cough and a negative chest x-ray. Chemistries are grossly within normal limits there is of mild bump in the CRP but this is likely due to nonspecific inflammatory response that could be attributed by asthma. I did give patient a 5 mg albuterol treatment as well as start him on a short course of p.o. steroids. Troponin is undetectable and EKG does not show any concerning ischemic changes. He is otherwise discharged home in stable condition. Patient also received combination analgesics for left lower leg pain Differential Diagnosis Please see the discussion above Admission/Observation Consideration of admission/observation: Escalation of care including admission/observation considered Lab Data Please see the discussion above 12/28/22 05:52 12/28/22 05:52 Labs: Lab Results 12/28/22 12/28/22 12/28/22 Range/Units 05:52 05:52 05:52 WBC 13.0 H (4.8-10.8) X10*3/uL RBC 5.36 (4.60-5.80) X10*6/uL Hgb 14.0 (14.0-18.0) g/dl Hct 43.1 (42.0-52.0) % MCV 80.4 (80.0-98.0) fL MCH 26.1 L (27.0-33.0) pg MCHC 32.5 (31.0-36.0) g/dl RDW 14.2 (11.0-16.0) % Plt Count 279 (160-400) X10*3/uL MPV 10.4 (9.4-12.4) fL Immature Gran % (Auto) 0.5 H (0.0-0.4) % Neut % (Auto) 63.6 (45-73) % Lymph % (Auto) 20.0 (20-40) % Lea % (Auto) 9.9 (2-11) % Eos % (Auto) 5.5 H (0-4) % Baso % (Auto) 0.5 (0-2) % Lymph # (Auto) 2.6 (1.2-4.9) X10*3/uL Lea # (Auto) 1.3 H (0.1-1.2) X10*3/uL Eos # (Auto) 0.7 H (0.0-0.4) X10*3/uL Baso # (Auto) 0.1 (0.0-0.2) X10*3/uL Abs Immat Gran (auto) 0.07 H (0.00-0.03) X10*3/uL Absolute Neuts (auto) 8.3 (2.0-8.3) x10*3/uL Absolute Nucleated RBC 0.000 (0.0-0.012) X10*3/uL Nucleated RBC % (auto) 0.0 (0.0-0.2) /100WBC Sodium 141 (135-145) mmol/L Potassium 4.1 (3.3-5.1) mmol/L Chloride 106 (96-108) mmol/L Carbon Dioxide 24 (22-29) mmol/L Anion Gap 15 (12-20) BUN 21 H (9-16) mg/dL Creatinine 0.94 (0.5-1.4) mg/dL Estim Creat Clear Calc 97.1 Estimated GFR > 60 Random Glucose 107 (60-115) mg/dL Calcium 10.2 (8.4-10.2) mg/dL Total Bilirubin 0.4 (0.0-1.0) mg/dL AST 21 (5-37) U/L ALT 33 (0-40) U/L Alkaline Phosphatase 116 (39-117) U/L Troponin I High Sens < 2.7 (<3.5-35.0) ng/L C-Reactive Protein 0.55 H (< or = 0.50) mg/dL Total Protein 7.2 (6.5-8.0) g/dL Albumin 4.4 (3.5-5.0) g/dL Independent Interpretation I performed an independent interpretation of an: EKG Interpretation: Normal sinus rhythm, HR-79, no STEMI, OR/QRS/QTC is within normal limits. Radiology Impression Radiologist Impression: No pneumonia otherwise my interpretation is in agreement with radiology's impression. Chronic Conditions Patient?s care impacted by: Hypertension Discharge Plan Discharge Clinical Impression: Asthma exacerbation Patient Disposition: Home, Self-Care Instructions: Asthma (ED) Additional Instructions: 1. Resume all home medications as prescribed. Complete the short course of steroids as prescribed. 2. Follow-up with your primary care provider for re-evaluation further outpatient management. Return to the ER for any worsening symptoms. Prescriptions: New prednisone 50 mg tablet 50 mg PO DAILY 4 Days Qty: 4 0RF No Action albuterol sulfate 90 mcg/actuation HFA aerosol inhaler 2 inh inhalation Q6H PRN (Reason: shortness of breath or wheezing) Qty: 8.5 5RF amlodipine [Norvasc] 5 mg tablet 5 mg PO DAILY Qty: 30 0RF epinephrine [EpiPen 2-Chevy] 0.3 mg/0.3 mL auto-injector 0.3 mg IM Q4H PRN (Reason: anaphylaxis) Qty: 2 1RF (DME) blood pressure monitor Kit See Rx Instructions .Route Qty: 1 0RF Rx Instructions: As directed (DME) blood pressure monitor [Blood Pressure Kit] Kit See Rx Instructions .ROUTE Rx Instructions: As directed Referrals: Jelena Hammonds MD [Primary Care Provider] -
[2022-12-28 06:47] VITALS: PULSE 80; RESP 13; O2SAT 97
--- NOTE | 2022-12-28 06:49 | PC.NURSE ---
Pt A&Ox4, reports increase intermittent SOB x few weeks with chest pressure pain all across chest and fuzzy feeling since last night. Pt also reports posterior left leg pain. Pt states chest pain worsens with exertion. Lung sounds clear, o2 sat 98% on RA. Pt placed on bedside monitor.
[2022-12-28 07:08] VITALS: BP 133/83; PULSE 84; RESP 13; TEMP 36.5; O2SAT 96
--- NOTE | 2022-12-28 07:28 | PC.NURSE ---
patient resting quietly in bed, VSS, lung sounds clear
== END 2022-12-28 07:32 | disposition home or self-care (01) ==
PROVIDERS: Emergency Provider Student in an Organized Health Care Education/Training Program; PCP Internal Medicine
DX: J45.901 Unspecified asthma with (acute) exacerbation (principal); R06.02 Shortness of breath; I10 Essential (primary) hypertension; Z79.899 Other long term (current) drug therapy
CPT/HCPCS: 36415; 71046; 80053; 84484; 85025; 85652; 86140; 93005; 94640; 99284; 99285

== ENCOUNTER → 2022-12-28 05:34 | Outpatient (BNV) | payer OTHER, SELFPAY | PROVIDERS: Emergency Provider Student in an Organized Health Care Education/Training Program; PCP Internal Medicine; Visit Provider Internal Medicine | DX: R94.31 Abnormal electrocardiogram [ECG] [EKG] (principal) | CPT/HCPCS: 93010 ==

== ENCOUNTER 2023-01-16 08:53 | Outpatient (AMB) | payer OTHER, SELFPAY ==
[2023-01-16 08:55] VITALS: BP 118/74; PULSE 97; O2SAT 96; BMI 31.0
--- NOTE | 2023-01-16 08:55 | MHC.PC.OV ---
Vital Signs 01/16/23 08:55 Height 5 ft 7 in Weight 198 lb BMI 31.0 BP 118/74 Blood Pressure Location Lt brachial Position Sitting Pulse 97 Pulse Source Pulse Oximeter Pulse Oximetry (%) 96 Oxygen Delivery Method Room Air Intake Visit Reasons: Asthma Exacerbation, New Pain/Tingling Intake Note: Pt is here today for a follow up visit on HTN. Pt states that he is getting numbness in his toes and a lot of cramping in his legs. Allergies candesartan Allergy (Severe, Verified 01/16/23 09:14) angioedema Iodinated Contrast Media [IV CONTRAST] Allergy (Intermediate, Verified 01/16/23 09:14) HIVES shrimp Allergy (Intermediate, Verified 01/16/23 09:14) THROAT SWELLING/ITCHING iopamidol [From Isovue-128] Allergy (Mild, Verified 01/16/23 09:14) HIVES Penicillins [PENICILLINS] Allergy (Unknown, Verified 01/16/23 09:14) REACTION UNKNOWN FRUIT, SKINS Allergy (Intermediate, Uncoded 01/16/23 09:14) THROAT SWELLING/ITCHING Dye PRISON Blue 1 Allergy (Unknown, Uncoded 01/16/23 09:14) unknown Medication List - Last Reconciled 01/16/23 by Jelena Hammonds MD albuterol sulfate 90 mcg/actuation 2 inhalations inhalation Q6H PRN amlodipine (Norvasc) 5 mg PO DAILY blood pressure monitor (Blood Pressure Kit) As directed epinephrine (EpiPen 2-Chevy) 0.3 mg (0.3 mL) IM Q4H PRN Tobacco use date assessed: 01/16/23 Dental Screening Dental Screen Date: 01/16/23 Did you have a dental problem in the last 6 months where you did not have access to dental care?: No Was dental information given to patient?: No HPI Asthma Exacerbation, New Pain/Tingling HPI Details 52-year-old male, here today complaining of intermittent episodes of numbness and tingling in the last 3 digits of both feet, the right more than the left, resolve spontaneously and has been getting lot of leg cramps especially at night. Complains of sometimes waking up with his right arm numb and tingly, resolve spontaneously after several minutes. 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 Olivas next month for follow-up. EKG done at the ER showed normal sinus rhythm with nonspecific ST T-wave abnormalities. [facility] Medical History (Updated 01/16/23 @ 09:30 by Jelena Hammonds MD) Acute colitis Annual visit for general adult medical examination with abnormal findings Asthma CRVO (central retinal vein occlusion) HTN (hypertension) Hx of angioedema Numbness and tingling of both legs below knees Obesity (BMI 30.0-34.9) Retinal vein occlusion Surgical History History of repair of left rotator cuff Family History Father Prostate cancer Glaucoma Mother Essential hypertension Social History Household Members: Spouse and Family Housing: House Alcohol intake: current Alcohol intake frequency: holidays/special occasions only Patient Tobacco Use Status: Never used Tobacco e-Cigarette/Vaping Use: Never Used Second Hand Smoke Exposure: No service: No Current occupational status: employed Current occupational exposures/hazards: No Cognitive needs: No Hearing needs: No Vision needs: Yes Questionnaire Thrive Questionnaire Date Thrive assessed: 08/08/22 AUDIT C Alcohol Use Questionnaire (AUDIT-C) 1. How often do you have a drink containing alcohol?: Never 3. How often do you have six or more drinks on one occasion?: Never Total Score: 0 Score Reviewed/Action Taken: Yes JOELLEN-7 AMB Questionnaire JOELLEN-7 Date JOELLEN - 7 assessed: 08/08/22 Source: Developed by Drs. Shane Brown, Leighann Tolliver, Gus Solitario and colleagues, with an educational sher from [email or web address]. Review of Systems Const All systems reviewed & are unremarkable except as noted in HPI and below Card Reports as per HPI and Reports no additional complaints Resp Reports no additional complaints GI Reports no additional complaints Skin/Breast Denies lesions and Denies rash Neuro Reports no additional complaints Physical exam (Primary Care) Vital Signs: Last Vital Signs Pulse 97 01/16/23 08:55 BP 118/74 01/16/23 08:55 Pulse Ox 96 01/16/23 08:55 Oxygen Delivery Method Room Air 01/16/23 08:55 BMI result Body Mass Index 31.0 BMI Assessment/Plan discussion: High BMI High, discussed plan: lifestyle, weight reduction, dietary and physical activity Tobacco/Smoking Status: Tobacco use Status Tobacco use date assessed 01/16/23 01/16/23 08:55 Patient Tobacco Use Status Never used Tobacco 01/16/23 08:55 e-Cigarette/Vaping Use Never Used 01/16/23 08:55 Thrive Assessment: Date of Thrive Assessment Date Thrive assessed 08/08/22 01/16/23 08:55 Const Other: Alert oriented x3, ambulatory normal gait, accompanied by Nutritional Appearance: obese Orientation/consciousness: patient oriented x3 HENMT Head: Yes normocephalic Mouth: Normal oral and palatal mucosa present, oropharynx normal and moist mucous membranes Neck Neck: Yes full ROM, Yes no lymphadenopathy and Yes supple Resp Effort & Inspection: normal respiratory effort and able to speak in complete sentences Auscultation: clear to auscultation bilaterally Cardio Other: S1-S2 present regular rate and rhythm Peripheral pulses: popliteal pulses present, posterior tibial pulses present and dorsalis pedis present General: Yes no CVA tenderness Back/Spine/Pelvis Back: no CVA tenderness and No back tenderness Skin General skin exam: no rashes or lesions noted Neuro General: patient oriented x3, gait normal, tone normal, moves all extremities, Normal light touch and pain sensation, no focal motor deficits, CN's II-XI intact bilaterally and normal sensation to monofilament Extrem General: Yes full ROM, Yes capillary refill normal, Yes no joint enlargement, Yes no clubbing, cyanosis or edema, Yes no calf tenderness and Yes normal gait Assessment and Plan Assessment & Plan (1) HTN (hypertension): Code(s): I10 - Essential (primary) hypertension Plan: Blood pressure at goal of less than 130/80. Continue with amlodipine 5 mg daily. Reinforced importance of following a low sodium diet, getting regular exercise, and lowering stress levels. (2) Numbness and tingling of both legs below knees: Code(s): R20.0 - Anesthesia of skin; R20.2 - Paresthesia of skin Plan: Will check vitamin-D, B12, TSH with free T4 and magnesium levels. CBC was within normal limits. Ordered nerve conduction study for both lower extremity. (3) Vitamin D deficiency: Code(s): E55.9 - Vitamin D deficiency, unspecified Orders: Orders Vitamin B12 and Folate Today I10 - Essential (primary) hypertension, R20.0 - Anesthesia of skin, R20.2 - Paresthesia of skin Magnesium Today I10 - Essential (primary) hypertension, R20.0 - Anesthesia of skin, R20.2 - Paresthesia of skin TSH reflex Free T4 Today I10 - Essential (primary) hypertension, R20.0 - Anesthesia of skin, R20.2 - Paresthesia of skin Vitamin D 25-OH Total Today E55.9 - Vitamin D deficiency, unspecified, I10 - Essential (primary) hypertension, R20.0 - Anesthesia of skin, R20.2 - Paresthesia of skin NE nerve conduction velocity Today R20.0 - Anesthesia of skin, R20.2 - Paresthesia of skin Coding Level of Care Code Est Pt Level 3 (37697) Diagnoses HTN (hypertension) I10 Numbness and tingling of both legs below knees R20.0; R20.2 Vitamin D deficiency E55.9
== END 2023-01-16 11:13 | disposition home or self-care (01) ==
PROVIDERS: PCP Internal Medicine; Visit Provider Internal Medicine
DX: I10 Essential (primary) hypertension (principal); R20.0 Anesthesia of skin; R20.2 Paresthesia of skin; E55.9 Vitamin D deficiency, unspecified
CPT/HCPCS: 99213

== ENCOUNTER 2023-01-16 09:40 | Outpatient (REF) | payer OTHER, SELFPAY ==
[2023-01-16 13:27] LABS: Magnesium 2.2 mg/dL (1.6-2.6)
[2023-01-16 13:46] LABS: TSH reflex Free T4 1.23 uIU/mL (0.32-4.0)
[2023-01-16 13:52] LABS: Folate 8.8 ng/mL (> or = 4.0); Vitamin B12 550 pg/mL (200-900)
== END 2023-01-16 09:41 | disposition home or self-care (01) ==
LOC: HO.HMGCLDS 09:40
PROVIDERS: PCP Internal Medicine; Visit Provider Internal Medicine
DX: E55.9 Vitamin D deficiency, unspecified (principal); I10 Essential (primary) hypertension; R20.0 Anesthesia of skin; R20.2 Paresthesia of skin
CPT/HCPCS: 36415; 82306; 82607; 82746; 83735; 84443

== ENCOUNTER → 2023-02-11 08:21 | Outpatient (REF) | payer OTHER, SELFPAY ==
--- NOTE | 2023-02-11 08:32 | CA_ITS ---
Acquisition Time: 2023-02-11 08:45:06 Total Exercise Time: 00:12:11 Test Indications: CHEST FULNESS,SHORT OF BREATH Medications: Protocol: TIERRA Max HR: 173 BPM 103% of Pred: 167 BPM Max BP: 164/088 mmHG Max Work Load: 13.7 METS Exercise stress test exercise 12 min 11 sec of Tierra protocol achieving 103% MPHR, with 5/10 chest tightness, mild SOB, with isolated PACs and PVC, with normotensive response to exercise, without EKG changes, Chest pain resolved with rest. Test reviewed with Dr. Barraza. Referred By: Jermaine Olivas Overread By: OPHELIA BARRAZA
== END ==
LOC: HO.CARD 08:21
PROVIDERS: PCP Internal Medicine; Visit Provider Internal Medicine Cardiovascular Disease
DX: R79.89 Other specified abnormal findings of blood chemistry (principal)
CPT/HCPCS: 93017

== ENCOUNTER → 2023-02-11 08:32 | Outpatient (BNV) | payer OTHER, SELFPAY | PROVIDERS: PCP Internal Medicine; Visit Provider Internal Medicine | DX: R07.89 Other chest pain (principal); R06.02 Shortness of breath | CPT/HCPCS: 93016; 93018 ==

== ENCOUNTER 2023-03-20 08:16 | Outpatient (REF) | payer OTHER, SELFPAY ==
--- NOTE | 2023-03-20 08:20 | EMG_ITS ---
Bilateral tibial and peroneal motor studies were performed. Bilateral superficial peroneal and sural sensory studies were performed. Tibial H reflexes were obtained and paraspinal muscles were tested with a needle. 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 MD EN Robles/NICHELLEL / [id number]
== END 2023-03-20 08:17 | disposition home or self-care (01) ==
LOC: HO.NEURO 08:16
PROVIDERS: PCP Internal Medicine; Visit Provider Internal Medicine
DX: R20.0 Anesthesia of skin (principal); R20.2 Paresthesia of skin
CPT/HCPCS: 95886; 95911

== ENCOUNTER 2023-05-20 14:53 | Outpatient (AMB) | payer OTHER, SELFPAY ==
--- NOTE | 2023-05-20 14:58 | MHC.OFFVIS ---
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 Allergies candesartan Allergy (Severe, Verified 01/16/23 09:14) angioedema Iodinated Contrast Media [IV CONTRAST] Allergy (Intermediate, Verified 01/16/23 09:14) HIVES shrimp Allergy (Intermediate, Verified 01/16/23 09:14) THROAT SWELLING/ITCHING iopamidol [From Isovue-128] Allergy (Mild, Verified 01/16/23 09:14) HIVES Penicillins [PENICILLINS] Allergy (Unknown, Verified 01/16/23 09:14) REACTION UNKNOWN FRUIT, SKINS Allergy (Intermediate, Uncoded 01/16/23 09:14) THROAT SWELLING/ITCHING Dye [facility] Blue 1 Allergy (Unknown, Uncoded 01/16/23 09:14) unknown Medication List - Last Reconciled 05/20/23 by PIPPA Sears albuterol sulfate 90 mcg/actuation 2 inhalations inhalation Q6H PRN amlodipine (Norvasc) 5 mg PO DAILY blood pressure monitor (Blood Pressure Kit) As directed epinephrine (EpiPen 2-Chevy) 0.3 mg (0.3 mL) IM Q4H PRN HPI HPI Comments History of Present Illness Details 52-yr-old male presents for neurological evaluation of polyneuropathy. Pt is accompanied by his . Pt reports he started having cramps in her lower legs about a yr ago. Prior to the onset of the cramping, there was no usual back pain, no injury. Then gradually increased to cramping anywhere in the body- foot, inside his leg, top of his foot, his back, and sometimes the arms. He has difficulty sitting for a while, for instance in his recliner he can start to have cramps and needs to get up. His back will easily spasms with simple upper body movements/twisting. Sheets touching his feet can trigger a cramp. Socks also cause discomfort. He is very restless at night, jerky and jumping- cannot always sleep in the bed w/ him- worsening in the last few yrs. He may cry like he is scared during his sleep. His has encouraged him to eat bananas, fluids, magnesium for the cramps- has not helped much. Recent BLE EMG showed- Moderately severe sensory and motor peripheral neuropathy with features of demyelination and axonal loss. C-spine MRI showed only minimal degernertaive changes at C6-7. Recent labs at [facility], SPEP- NL. Then he started having tingling, numbness in his BLE R > L lower legs to toes. Can feel like his socks are rolled up under his feet when walking. His arms can easily fall asleep. He does endorse hands feel weaker, more prone to cramping and becoming stuck. 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 Hand tremors at times. When he stretches in the am- his whole body will shake. He is not sure if he has LE weakness, but believes he may. Also endorses- sometimes wakes up feeling a vertigo, occasional migraine x's decades, blurry s/p the left eye vein occlusion, skin sensation, STM lapses- forgetting say students names. Denies snoring, hyposmia, constipation, urinary changes, falls, gait changes. Denies h/o thyroid d/o, diabetes, alcohol abuse. 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 No h/o antipsychotic med or reglan use. No known occuptaional exposures. His grandfather used to have unilateral facial spasms. 02/2023, BLE EMG/NCS IMPRESSION: Moderately severe sensory and motor peripheral neuropathy with features of demyelination and axonal loss. 03/2023, IMPRESSION: Minimal degenerative changes at C6-C7, otherwise, unremarkable cervical spine MRI without contrast. [facility] Medical History (Updated 05/21/23 @ 08:17 by PIPPA Sears) Asthma Anemia Retinal vascular occlusion of left eye Peripheral neuropathy Numbness and tingling of both legs below knees CRVO (central retinal vein occlusion) Annual visit for general adult medical examination with abnormal findings Hx of angioedema Acute colitis Obesity (BMI 30.0-34.9) Retinal vein occlusion HTN (hypertension) Surgical History H/O hand surgery Hx of appendectomy History of repair of left rotator cuff Family History Father Prostate cancer Glaucoma Mother Essential hypertension Social History Household Members: Spouse and Family Housing: House Alcohol intake: current Alcohol intake frequency: holidays/special occasions only Patient Tobacco Use Status: Never used Tobacco e-Cigarette/Vaping Use: Never Used Second Hand Smoke Exposure: No service: No Current occupational status: employed Current occupational exposures/hazards: No Cognitive needs: No Hearing needs: No Vision needs: Yes Review of Systems Const All systems reviewed & are unremarkable except as noted in HPI and below Physical Exam Vital Signs: Last Vital Signs BP 140/98 H 05/20/23 14:59 BMI result Body Mass Index 31.0 Const General: cooperative and no acute distress Orientation/consciousness: patient oriented x3 HEENT Head: Yes normocephalic Resp Effort & Inspection: normal respiratory effort and able to speak in complete sentences Back/Spine/Pelvis Other: Bilateral posterior cervical w/o significant tightness. Cervical ROM: full Left Spurling: normal Right Spurling: normal. Neuro Other: BUE negative- Tinnel, Phalen, Medial Compression Dionne. Negative Pronator drift. Hand grasps equal. BLE- intact vibration, light touch, position sensation. RLE- slight decrease sharp sensation in distal plantar foot region. BLE MS 5/5- able to walk > 10 ft on toes, heels, able to to 1 legged heel raise 9does hold on for support) BLE- no edema. CMS +, PP 2 +. General: patient oriented x3 and CN's II-XI intact bilaterally (w/ exception of L > R palpebral fissure ) Gait exam (Neuro): Normal gait present Motor exam (neuro): 5/5 motor strength present throughout Deep tendon reflexes (DTR's): Right triceps reflex intensity grade: 3+, Left triceps reflex intensity grade: 3+, Rt Biceps (C5, C6): 2+, Left biceps reflex intensity grade: 2+, Right brachioradialis reflex intensity grade: 2+, Left brachioradialis reflex intensity grade: 2+, Right patellar reflex intensity grade: 2+ and Left patellar reflex intensity grade: 3+ Psych Appearance: grossly normal Mental Status: mental status grossly normal Speech and movement: Normal speech and movement present Affect: normal affect Attitude: cooperative Thought process: Normal thought process present Thought content: Normal thought content present Insight: Good insight present (Psych) Assessment & Plan Assessment & Plan (1) Mixed axonal-demyelinating polyneuropathy: Comment: Moderately severe sensory and motor peripheral neuropathy with features of demyelination and axonal loss. C-spine MRI showed only minimal degenerative changes at C6-7. Recent labs at [facility], SPEP- NL. Code(s): G62.89 - Other specified polyneuropathies (2) Muscle cramps: Code(s): R25.2 - Cramp and spasm (3) Tremor: Code(s): R25.1 - Tremor, unspecified (4) Parasomnia: Code(s): G47.50 - Parasomnia, unspecified (5) Sleep difficulties: Code(s): G47.9 - Sleep disorder, unspecified Plan Reviewed recent work-up w/ pt and - Moderately severe sensory and motor peripheral neuropathy with features of demyelination and axonal loss. C-spine MRI- minimal degenerative changes at C6-7. [facility], [facility], [facility]- NL. Pt does not have any known risk factors for polyneuropathy, ie no known h/o uncontrolled systemic dz, substance/alcohol use, occupational exposures. Will check labs to assess for common etiologies of axonal and demyelinating neuropathy and diffuse cramps. Will check brain MRI for central etiologies of cramping, tremor, cognitive difficulties in setting of HTN and retinal vein occlussion. Pt advised to undergo HST to assess for sleep apnea. Future considerations- further laboratory and neuro work-up- paraneoplastic panel, LP w/ CSF studies, BUE EMG/NCS, in-lab sleep study (to assess for parasomnias and PLMS). F/u in 4-6 weeks or sooner Orders: Orders Complete Blood Count Auto Diff 05/20/23 E66.9 - Obesity, unspecified, G62.89 - Other specified polyneuropathies, I10 - Essential (primary) hypertension, R20.0 - Anesthesia of skin, R20.2 - Paresthesia of skin, R25.1 - Tremor, unspecified, R53.83 - Other fatigue HIV Ab/Ag 05/20/23 E66.9 - Obesity, unspecified, G62.89 - Other specified polyneuropathies, I10 - Essential (primary) hypertension, R20.0 - Anesthesia of skin, R20.2 - Paresthesia of skin, R25.1 - Tremor, unspecified, R53.83 - Other fatigue Vitamin B12 and Folate 05/20/23 E66.9 - Obesity, unspecified, G62.89 - Other specified polyneuropathies, I10 - Essential (primary) hypertension, R20.0 - Anesthesia of skin, R20.2 - Paresthesia of skin, R25.1 - Tremor, unspecified, R53.83 - Other fatigue Protein Electrophoresis 24HrUr 05/20/23 E66.9 - Obesity, unspecified, G62.89 - Other specified polyneuropathies, I10 - Essential (primary) hypertension, R20.0 - Anesthesia of skin, R20.2 - Paresthesia of skin, R25.1 - Tremor, unspecified, R53.83 - Other fatigue Heavy Metals Screen 24H Urine 05/20/23 E66.9 - Obesity, unspecified, G62.89 - Other specified polyneuropathies, I10 - Essential (primary) hypertension, R20.0 - Anesthesia of skin, R20.2 - Paresthesia of skin, R25.1 - Tremor, unspecified, R53.83 - Other fatigue CRP High Sensitivity 05/20/23 E66.9 - Obesity, unspecified, G62.89 - Other specified polyneuropathies, I10 - Essential (primary) hypertension, R20.0 - Anesthesia of skin, R20.2 - Paresthesia of skin, R25.1 - Tremor, unspecified, R53.83 - Other fatigue Erythrocyte Sedimentation Rate 05/20/23 E66.9 - Obesity, unspecified, G62.89 - Other specified polyneuropathies, I10 - Essential (primary) hypertension, R20.0 - Anesthesia of skin, R20.2 - Paresthesia of skin, R25.1 - Tremor, unspecified, R53.83 - Other fatigue Creatine Kinase Total 05/20/23 E66.9 - Obesity, unspecified, G62.89 - Other specified polyneuropathies, I10 - Essential (primary) hypertension, R20.0 - Anesthesia of skin, R20.2 - Paresthesia of skin, R25.1 - Tremor, unspecified, R25.2 - Cramp and spasm, R53.83 - Other fatigue TSH reflex Free T4 05/20/23 E66.9 - Obesity, unspecified, G62.89 - Other specified polyneuropathies, I10 - Essential (primary) hypertension, R20.0 - Anesthesia of skin, R20.2 - Paresthesia of skin, R25.1 - Tremor, unspecified, R53.83 - Other fatigue Comprehensive Met. Panel 05/20/23 E66.9 - Obesity, unspecified, G62.89 - Other specified polyneuropathies, I10 - Essential (primary) hypertension, R20.0 - Anesthesia of skin, R20.2 - Paresthesia of skin, R25.1 - Tremor, unspecified, R53.83 - Other fatigue Hemoglobin A1c 05/20/23 E66.9 - Obesity, unspecified, G62.89 - Other specified polyneuropathies, I10 - Essential (primary) hypertension, R20.0 - Anesthesia of skin, R20.2 - Paresthesia of skin, R25.1 - Tremor, unspecified, R53.83 - Other fatigue Ferritin 05/20/23 D64.9 - Anemia, unspecified, E66.9 - Obesity, unspecified, G62.89 - Other specified polyneuropathies, I10 - Essential (primary) hypertension, R20.0 - Anesthesia of skin, R20.2 - Paresthesia of skin, R25.1 - Tremor, unspecified, R53.83 - Other fatigue IRON PROFILE 05/20/23 D64.9 - Anemia, unspecified, E66.9 - Obesity, unspecified, G62.89 - Other specified polyneuropathies, I10 - Essential (primary) hypertension, R20.0 - Anesthesia of skin, R20.2 - Paresthesia of skin, R25.1 - Tremor, unspecified, R53.83 - Other fatigue Transferrin 05/20/23 D64.9 - Anemia, unspecified, E66.9 - Obesity, unspecified, G62.89 - Other specified polyneuropathies, I10 - Essential (primary) hypertension, R20.0 - Anesthesia of skin, R20.2 - Paresthesia of skin, R25.1 - Tremor, unspecified, R53.83 - Other fatigue Ceruloplasmin 05/20/23 E66.9 - Obesity, unspecified, G62.89 - Other specified polyneuropathies, I10 - Essential (primary) hypertension, R20.0 - Anesthesia of skin, R20.2 - Paresthesia of skin, R25.1 - Tremor, unspecified, R53.83 - Other fatigue MR head/brain wo/w con 05/20/23 G62.89 - Other specified polyneuropathies, H34.8192 - Central retinal vein occlusion, unspecified eye, stable, I10 - Essential (primary) hypertension, R25.1 - Tremor, unspecified, R25.2 - Cramp and spasm RT home sleep study 05/20/23 G47.50 - Parasomnia, unspecified, G47.9 - Sleep disorder, unspecified, R06.83 - Snoring, R25.2 - Cramp and spasm Referrals Neurology Referral E66.9 - Obesity, unspecified, G62.89 - Other specified polyneuropathies, G62.9 - Polyneuropathy, unspecified, I10 - Essential (primary) hypertension, R20.0 - Anesthesia of skin, R20.2 - Paresthesia of skin, R25.1 - Tremor, unspecified, R53.83 - Other fatigue Coding Level of Care Code New Pt Level 4 (60944) Diagnoses Mixed axonal-demyelinating polyneuropathy G62.89 Muscle cramps R25.2 Tremor R25.1 Parasomnia G47.50 Sleep difficulties G47.9
[2023-05-20 14:59] VITALS: BP 140/98; BMI 31.0
== END 2023-05-21 09:29 | disposition home or self-care (01) ==
PROVIDERS: PCP Internal Medicine; Visit Provider Nurse Practitioner Family
DX: G62.89 Other specified polyneuropathies (principal); R25.2 Cramp and spasm; R25.1 Tremor, unspecified; G47.50 Parasomnia, unspecified; G47.9 Sleep disorder, unspecified
CPT/HCPCS: 99204

== ENCOUNTER → 2023-05-20 14:53 | Outpatient (BNVA) | payer OTHER, SELFPAY | PROVIDERS: PCP Internal Medicine; Visit Provider Nurse Practitioner Family | DX: G62.89 Other specified polyneuropathies (principal); G47.50 Parasomnia, unspecified; G47.9 Sleep disorder, unspecified; R25.2 Cramp and spasm; R25.1 Tremor, unspecified | CPT/HCPCS: 99202 ==

== ENCOUNTER 2023-06-27 20:06 | Emergency (ER) | payer OTHER, SELFPAY ==
--- NOTE | 2023-06-27 20:30 | ED.GENADULT ---
HPI - General Adult General Chief complaint: Abdominal Pain Stated complaint: Flank pain Time Seen by Provider: 06/28/23 02:19 Source: patient Mode of arrival: ambulatory Limitations: no limitations History of Present Illness HPI narrative: patient comes to the emergency room complaining of 2 weeks of right-sided flank pain. Patient denies any UTI symptoms, no trauma. Patient denies fever or chills. Related Data Home Medications Medication Instructions Recorded Confirmed blood pressure monitor (Blood 12/05/22 05/20/23 Pressure Kit) Previous Rx's Medication Instructions Recorded epinephrine 0.3 mg/0.3 mL 0.3 mg (0.3 mL) IM Q4H PRN 12/06/22 injection, auto-injector (EpiPen anaphylaxis #2 ea 2-Chevy) amlodipine 5 mg tablet (Norvasc) 5 mg PO DAILY #90 tabs 01/03/23 albuterol sulfate 90 mcg/actuation 2 inh inhalation Q6H PRN shortness 06/24/23 aerosol inhaler of breath or wheezing #8.5 grams cyclobenzaprine 10 mg tablet 10 mg PO TID PRN muscle spasm #10 06/28/23 tabs ibuprofen 600 mg tablet 600 mg PO TID PRN fever or pain 06/28/23 #10 tabs Allergies Allergy/AdvReac Type Severity Reaction Status Date / Time candesartan Allergy Severe angioedema Verified 01/16/23 09:14 Iodinated Contrast Media Allergy Intermediate HIVES Verified 01/16/23 09:14 [IV CONTRAST] shrimp Allergy Intermediate THROAT Verified 01/16/23 09:14 SWELLING/ITCHING iopamidol [From Isovue-128] Allergy Mild HIVES Verified 01/16/23 09:14 Penicillins [PENICILLINS] Allergy Unknown REACTION Verified 01/16/23 09:14 UNKNOWN FRUIT, SKINS Allergy Intermediate THROAT Uncoded 01/16/23 09:14 SWELLING/ITCHING Dye INTERMEDIATE Blue 1 Allergy Unknown unknown Uncoded 01/16/23 09:14 Review of Systems Review of Systems: Constitutional : No Weight loss, No Fever, No Chills, No Night Sweats, No Fatigue, No Malaise ENT/Mouth : No Hearing loss, No Ear Pain, No Nasal Congestion, No Sinus Pain, No Hoarseness, No sore throat, No Rhinorrhea, No Swallowing Difficulty Eyes: No Eye Pain, No Swelling, No Redness, No Foreign Body, No Discharge, No Vision Changes Cardiovascular : No Chest Pain, No SOB, No Dyspnea on Exertion, No Orthopnea, No Edema, No Palpitations Respiratory : No Cough, No Sputum, No Wheezing, No Smoke Exposure, No Dyspnea Gastrointestinal : No Nausea, No Vomiting, No Diarrhea, No Constipation, No abdominal Pain, No Hematochezia, No Melena Genitourinary : no irregular bleeding, No Dysuria, No Urinary Frequency, No Hematuria, No Urinary Incontinence, No Urgency, Complaining of constant right-sided Flank Pain, No Urinary Flow Changes, No Hesitancy Musculoskeletal : No joint pain, No Myalgias, No Joint Swelling Skin : No Skin Lesions, No rash Neuro : No Weakness, No Numbness, No Paresthesias, No Loss of Consciousness, No Dizziness, No Headache Psych : No Anxiety/Panic, No Depression, No SI/HI/AH/VH, No Social Issues, Heme/Lymph: No Bruising, No Bleeding,No Lymphadenopathy Endocrine : No Polyuria, No Polydipsia, No Temperature Intolerance PMFSH Past Medical History Onset Date is defined in the Problem List Problems that require an onset date and time if occurred within 24 hrs of arrival to the ED Aortic Dissection and Rupture; Neurologic impairment; Cardiopulmonary Arrest; Endotracheal Intubation; Insertion or Replacement of Mechanical Circulatory Assist Device Medical History Asthma Anemia Retinal vascular occlusion of left eye Peripheral neuropathy Numbness and tingling of both legs below knees CRVO (central retinal vein occlusion) Annual visit for general adult medical examination with abnormal findings Hx of angioedema Acute colitis Obesity (BMI 30.0-34.9) Retinal vein occlusion HTN (hypertension) Surgical History H/O hand surgery Hx of appendectomy History of repair of left rotator cuff Family History Family History Father Prostate cancer Glaucoma Mother Essential hypertension Social History Social History Household Members: Spouse and Family Housing: House Alcohol intake: current Alcohol intake frequency: holidays/special occasions only Patient Tobacco Use Status: Never used Tobacco e-Cigarette/Vaping Use: Never Used Second Hand Smoke Exposure: No Advance Directives: No Advance Directives Information Provided: Yes service: No Current occupational status: employed Current occupational exposures/hazards: No Cognitive needs: No Hearing needs: No Vision needs: Yes Physical Exam ED Vital Signs: Vital Signs - 24 hr 06/27/23 20:33 06/28/23 01:17 Temperature 98.5 F 98.5 F Pulse Rate 96 81 Respiratory Rate 20 14 Blood Pressure 137/94 H 136/94 H Pulse Oximetry 98 98 Oxygen Delivery Method Room Air Room Air BMI result Body Mass Index 29.8 Const Other: Appearance: Alert. Oriented X3. No acute distress. Eyes: Pupils equal, round and reactive to light. ENT: Pharynx normal. Neck: Normal inspection. Neck supple. No lymph nodes noted. No crepitus CVS: Normal heart rate and rhythm. Pulses normal. Normal S1 and S2 Respiratory: No respiratory distress. Breath sounds normal. No Wheezing. No rales Abdomen: Soft and nontender. No rigidity. No distention. no CVA tenderness Skin: Skin warm and dry. Normal skin color. Normal skin turgor. Extremities: No lower extremity edema. No Lacerations. No Rash Neuro: Oriented X 3. No motor deficit. No sensory deficit. Moving all extremities. No slurred speech. CN 2 through 12 grossly intact Psych: calm, cooperative, normal affect Course Course Course Narrative: This is an RME: Additional HPI, ROS, PE not included below will be deferred to primary provider. 52-year-old male presents to difficulties with urination flank pain ongoing for past few weeks. No personal history of kidney stones however family history of this. Plan at this time labs, urine. Medical Decision Making Medical Decision Making [facility] Narrative: - my interpretation of CT scan, no ureterolithiasis - my interpretation of labs, chronic leukocytosis, normal chemistry, normal renal function. Chronic hematuria - I discussed the labs and imaging with the patient, patient will follow-up with Urology for chronic microscopic hematuria. - Source of patient's pain in the right flank, likely musculoskeletal Differential Diagnosis Differential Diagnoses: The differential diagnosis associated with the presentation includes ( ureterolithiasis, renal colic, renal infarct, musculoskeletal pain, cystitis) Admission/Observation Consideration of admission/observation: Escalation of care including admission/observation considered ( given patient's labs and initial presentation, admission was considered) Lab Data [facility] Lab Attestation statement: I reviewed the patient's lab results. 06/27/23 20:54 06/27/23 20:54 Labs: Lab Results 06/27/23 06/27/23 Range/Units 20:54 20:58 WBC 14.0 H (4.8-10.8) X10*3/uL RBC 5.67 (4.60-5.80) X10*6/uL Hgb 14.9 (14.0-18.0) g/dl Hct 45.8 (42.0-52.0) % MCV 80.8 (80.0-98.0) fL MCH 26.3 L (27.0-33.0) pg MCHC 32.5 (31.0-36.0) g/dl RDW 14.1 (11.0-16.0) % Plt Count 278 (160-400) X10*3/uL MPV 10.2 (9.4-12.4) fL Immature Gran % (Auto) 0.3 (0.0-0.4) % Neut % (Auto) 80.1 H (45-73) % Lymph % (Auto) 10.5 L (20-40) % [place] % (Auto) 7.4 (2-11) % Eos % (Auto) 1.5 (0-4) % Baso % (Auto) 0.2 (0-2) % Lymph # (Auto) 1.5 (1.2-4.9) X10*3/uL [place] # (Auto) 1.0 (0.1-1.2) X10*3/uL Eos # (Auto) 0.2 (0.0-0.4) X10*3/uL Baso # (Auto) 0.0 (0.0-0.2) X10*3/uL Abs Immat Gran (auto) 0.04 H (0.00-0.03) X10*3/uL Absolute Neuts (auto) 11.2 H (2.0-8.3) x10*3/uL Absolute Nucleated RBC 0.000 (0.0-0.012) X10*3/uL Nucleated RBC % (auto) 0.0 (0.0-0.2) /100WBC Sodium 142 (135-145) mmol/L Potassium 4.3 (3.3-5.1) mmol/L Chloride 102 (96-108) mmol/L Carbon Dioxide 31 H (22-29) mmol/L Anion Gap 13 (12-20) BUN 17 H (9-16) mg/dL Creatinine 0.86 (0.5-1.4) mg/dL Estim Creat Clear Calc 104.1 Estimated GFR > 60 Random Glucose 99 (60-115) mg/dL Calcium 9.8 (8.4-10.2) mg/dL Total Bilirubin 0.6 (0.0-1.0) mg/dL AST 26 (5-37) U/L ALT 48 H (0-40) U/L Alkaline Phosphatase 96 (39-117) U/L Total Protein 7.5 (6.5-8.0) g/dL Albumin 4.7 (3.5-5.0) g/dL Lipase 17 (8-78) U/L Urine Color Yellow Urine Appearance Clear Urine pH 6.5 (5.0-9.0) Ur Specific [place] 1.025 (1.005-1.025) Urine Protein Negative (Neg-Trace) mg/dL Urine Glucose (UA) Negative (Negative) mg/dL Urine Ketones Trace (Negative) mg/dL Urine Blood Moderate (2+) H (Negative) Urine Nitrite Negative (Negative) Ur Leukocyte Esterase Negative (Negative) Urine RBC >20 H (0-2) /HPF Urine WBC 0-5 (0-5) /HPF Ur Squamous Epith Cells 0-2 (0-2) /HPF Urine Bacteria None Seen (None Seen) Hyaline Casts 0-2 (0-2) /LPF Independent Interpretation I performed an independent interpretation of an: CT Scan Radiology Impression Discussion of test interpretation with radiology: I have reviewed the radiologist's reading. Radiologist Impression: FINDINGS: LUNG BASES: There is scarring at both lung bases. LIVER, GALLBLADDER, AND BILIARY TREE: The liver is normal in size, shape, and attenuation. No focal hepatic lesion or biliary ductal dilatation is present. The gallbladder is unremarkable with no evidence of radiopaque gallstones, gallbladder wall thickening, or obvious pericholecystic inflammatory changes. PANCREAS: Unremarkable. SPLEEN: Unremarkable. ADRENAL GLANDS: Unremarkable. KIDNEYS AND URETERS: The kidneys are normal in size, shape, and attenuation. No hydronephrosis, hydroureter, or calculi seen. No perinephric stranding. There is a subcentimeter hypodensity BLADDER: Unremarkable. GASTROINTESTINAL TRACT: There are diverticula of the transverse, descending and proximal sigmoid colon without diverticulitis. The appendix is not seen. ABDOMINAL WALL: No significant hernia is appreciated. LYMPH NODES: Normal. VASCULAR: Unremarkable. PELVIC VISCERA: Unremarkable. OSSEOUS STRUCTURES: Unremarkable. CT/CT abdomen pelvis wo IV con IMPRESSION: 1. No evidence of nephrolithiasis or hydronephrosis. 2. Diverticulosis without diverticulitis. Fleischner guidelines were followed. Critical Care Time Critical Care Time Critical Care Time: Yes Total Critical Care Time: 45 Attestation: I have personally provided critical care time. Time includes review of lab data, radiology results, discussion with consultants, and monitoring for potential decompensation. Intervention performed as documented. Discharge Plan Discharge Clinical Impression: Right flank pain, Hematuria of unknown cause Patient Disposition: Home, Self-Care Instructions: Hematuria (ED), Flank Pain (ED) Additional Instructions: Please follow-up with your primary care physician tomorrow. If you have any worsening or new symptoms, please return to the emergency room or call 911 Prescriptions: New cyclobenzaprine 10 mg tablet 10 mg PO TID PRN (Reason: muscle spasm) Qty: 10 0RF ibuprofen 600 mg tablet 600 mg PO TID PRN (Reason: fever or pain) Qty: 10 0RF No Action epinephrine [EpiPen 2-Chevy] 0.3 mg/0.3 mL auto-injector 0.3 mg IM Q4H PRN (Reason: anaphylaxis) Qty: 2 1RF amlodipine [Norvasc] 5 mg tablet 5 mg PO DAILY Qty: 90 3RF albuterol sulfate 90 mcg/actuation HFA aerosol inhaler 2 inh inhalation Q6H PRN (Reason: shortness of breath or wheezing) Qty: 8.5 5RF (DME) blood pressure monitor [Blood Pressure Kit] Kit See Rx Instructions .Route Rx Instructions: As directed Referrals: Joseph Young MD [Physician] - 06/30/23 ( chronic microscopic hematuria)
[2023-06-27 20:33] VITALS: BP 137/94; PULSE 96; RESP 20; TEMP 36.9; O2SAT 98; BMI 29.8
[2023-06-27 21:20] LABS: Alanine Aminotransferase 48 U/L (0-40); Albumin Level 4.7 g/dL (3.5-5.0); Alkaline Phosphatase 96 U/L (39-117); Anion Gap 13 (12-20); Aspartate Amino Transferase 26 U/L (5-37); Bilirubin Total 0.6 mg/dL (0.0-1.0); Blood Urea Nitrogen 17 mg/dL (9-16); Calcium 9.8 mg/dL (8.4-10.2); Carbon Dioxide 31 mmol/L (22-29); Chloride 102 mmol/L (96-108); Creatinine Clr Calc Pharmacy 104.1; Estimated Glomerular Filt Rate > 60; Glucose Random 99 mg/dL (60-115); Lipase 17 U/L (8-78); Potassium 4.3 mmol/L (3.3-5.1); Sodium 142 mmol/L (135-145); Total Protein 7.5 g/dL (6.5-8.0)
[2023-06-28 01:17] VITALS: BP 136/94; PULSE 81; RESP 14; TEMP 36.9; O2SAT 98
[2023-06-28 02:37] VITALS: BP 132/81; PULSE 84; RESP 17; TEMP 36.8; O2SAT 97
== END 2023-06-28 02:51 | disposition home or self-care (01) ==
PROVIDERS: Physician Assistant; Emergency Provider Emergency Medicine; PCP Internal Medicine
DX: R10.9 Unspecified abdominal pain (principal); R31.9 Hematuria, unspecified; I10 Essential (primary) hypertension; Z79.899 Other long term (current) drug therapy
CPT/HCPCS: 36415; 74176; 80053; 81001; 83690; 85025; 99284

== ENCOUNTER → 2023-07-10 07:56 | Outpatient (REF) | payer OTHER, SELFPAY | LOC: HO.SL 07:56 | PROVIDERS: PCP Internal Medicine; Visit Provider Nurse Practitioner Family | DX: R06.83 Snoring (principal); R25.2 Cramp and spasm; G47.50 Parasomnia, unspecified | CPT/HCPCS: 95806 ==

== ENCOUNTER → 2023-07-10 08:12 | Outpatient (BNV) | payer OTHER, SELFPAY | PROVIDERS: PCP Internal Medicine; Visit Provider Psychiatry & Neurology Neurology | DX: R06.83 Snoring (principal) | CPT/HCPCS: 95806 ==

== ENCOUNTER 2023-08-20 01:58 | Emergency (ER) | payer OTHER, SELFPAY ==
[2023-08-20 02:06] VITALS: BP 138/80; PULSE 96; O2SAT 97; BMI 30.7
[2023-08-20 02:25] LABS: MANUAL DIFF FLAG NO
[2023-08-20 02:27] LABS: Basophils Percent Auto 0.2 % (0-2); Eosinophils Absolute Auto 0.1 X10*3/uL (0.0-0.4); Eosinophils Percent Auto 0.3 % (0-4); Hematocrit 46.1 % (42.0-52.0); Hemoglobin 15.3 g/dl (14.0-18.0); Imm Gran Abs Auto 0.08 X10*3/uL (0.00-0.03); Imm Gran Pct Auto 0.5 % (0.0-0.4); Mean Corpuscular HGB Conc 33.2 g/dl (31.0-36.0); Mean Corpuscular Hemoglobin 26.6 pg (27.0-33.0); Mean Corpuscular Volume 80.2 fL (80.0-98.0); Mean Platelet Volume 10.1 fL (9.4-12.4); Monocytes Absolute Auto 0.9 X10*3/uL (0.1-1.2); Monocytes Percent Auto 5.1 % (2-11); Neutrophils Percent Auto 87.9 % (45-73); Platelet Count 318 X10*3/uL (160-400); Red Blood Count 5.75 X10*6/uL (4.60-5.80); Red Cell Distribution Width 13.7 % (11.0-16.0)
--- NOTE | 2023-08-20 02:30 | ED_ITS ---
HPI - General Adult General Chief complaint: General Medical Stated complaint: LEGT CRAMPING Time Seen by Provider: 08/20/23 02:22 Source: patient Mode of arrival: ambulatory Limitations: no limitations History of Present Illness HPI narrative: Patient with history of mixed axonal demyelinating polyneuropathy, hypertension had watery stool about 4 times with nausea since afternoon today fell lightheaded almost passed out before coming feeling cramps all over the body no fever had some chills earlier Related Data Home Medications Medication Instructions Recorded Confirmed blood pressure monitor (Blood 12/05/22 05/20/23 Pressure Kit) Previous Rx's Medication Instructions Recorded epinephrine 0.3 mg/0.3 mL 0.3 mg (0.3 mL) IM Q4H PRN 12/06/22 injection, auto-injector (EpiPen anaphylaxis #2 ea 2-Chevy) amlodipine 5 mg tablet (Norvasc) 5 mg PO DAILY #90 tabs 01/03/23 albuterol sulfate 90 mcg/actuation 2 inh inhalation Q6H PRN shortness 06/24/23 aerosol inhaler of breath or wheezing #8.5 grams cyclobenzaprine 10 mg tablet 10 mg PO TID PRN muscle spasm #10 06/28/23 tabs ibuprofen 600 mg tablet 600 mg PO TID PRN fever or pain 06/28/23 #10 tabs ondansetron 4 mg disintegrating 4 mg PO Q6-8H PRN nausea and 08/20/23 tablet vomiting #6 tabs Allergies Allergy/AdvReac Type Severity Reaction Status Date / Time candesartan Allergy Severe angioedema Verified 08/20/23 02:15 Iodinated Contrast Media Allergy Intermediate HIVES Verified 08/20/23 02:15 [IV CONTRAST] shrimp Allergy Intermediate THROAT Verified 08/20/23 02:15 SWELLING/ITCHING iopamidol [From Isovue-128] Allergy Mild HIVES Verified 08/20/23 02:15 Penicillins [PENICILLINS] Allergy Unknown REACTION Verified 08/20/23 02:15 UNKNOWN FRUIT, SKINS Allergy Intermediate THROAT Uncoded 08/20/23 02:15 SWELLING/ITCHING Dye CORRECTION Blue 1 Allergy Unknown unknown Uncoded 08/20/23 02:15 Review of Systems 2 Review of Systems: Yes all other systems are reviewed and are negative PMFSH Past Medical History Medical History Asthma Anemia Retinal vascular occlusion of left eye Peripheral neuropathy Numbness and tingling of both legs below knees CRVO (central retinal vein occlusion) Annual visit for general adult medical examination with abnormal findings Hx of angioedema Acute colitis Obesity (BMI 30.0-34.9) Retinal vein occlusion HTN (hypertension) Surgical History H/O hand surgery Hx of appendectomy History of repair of left rotator cuff Family History Family History Father Prostate cancer Glaucoma Mother Essential hypertension Social History Social History Household Members: Spouse and Family Housing: House Alcohol intake: current Alcohol intake frequency: holidays/special occasions only Patient Tobacco Use Status: Never used Tobacco Smoked in Last 30 Days: No e-Cigarette/Vaping Use: Never Used Second Hand Smoke Exposure: No Use of substances other than those prescribed or required for medical reasons: No Advance Directives: No Advance Directives Information Provided: No service: No Current occupational status: employed Current occupational exposures/hazards: No Cognitive needs: No Hearing needs: No Vision needs: Yes Physical Exam ED Vital Signs: BMI result Body Mass Index 30.7 Appearance: Alert. Oriented X3. No acute distress. Eyes: No pallor or icterus ENT: Pharynx normal. Oral Mucosa moist Neck: Normal inspection. Neck supple. CVS: Normal heart rate and rhythm. Pulses normal. Respiratory: No respiratory distress. Equal air entry bilateral, Abdomen: Soft and nontender. Bowel sounds are present, no mass palpable, no CVA tenderness Skin: Skin warm and dry. Normal skin color. Normal skin turgor. Extremities: No lower extremity edema. No calf tenderness Neuro: Oriented X 3. No motor deficit. No sensory deficit. Medications Administered Discontinued Medications Generic Name Dose Route Start Last Admin Trade Name Freq PRN Reason Stop Dose Admin Sodium Chloride 1,000 mls @ 999 mls/hr 08/20/23 02:38 08/20/23 04:02 Ns IV 08/20/23 03:38 Infused .Q1H1M ONE Infusion Loperamide HCl 2 mg 08/20/23 02:39 08/20/23 02:53 Loperamide Hcl 2 Mg Capsule PO 08/20/23 02:40 2 mg ONCE ONE Administration Ondansetron HCl 4 mg 08/20/23 02:38 08/20/23 02:53 Ondansetron Hcl 4 Mg/2 Ml Vial IVPUSH 08/20/23 02:39 4 mg ONCE ONE Administration Medical Decision Making Medical Decision Making [facility] Narrative: Patient with acute gastroenteritis with stable labs electrolytes are normal feeling much better after hydration no bowel movement or vomiting in the ER discharge patient home Differential Diagnosis Differential Diagnoses: The differential diagnosis associated with the presentation includes Lab Data [facility] Lab Attestation statement: I reviewed the patient's lab results. 08/20/23 02:21 08/20/23 02:21 Labs: Lab Results 08/20/23 Range/Units 02:21 WBC 17.0 H (4.8-10.8) X10*3/uL RBC 5.75 (4.60-5.80) X10*6/uL Hgb 15.3 (14.0-18.0) g/dl Hct 46.1 (42.0-52.0) % MCV 80.2 (80.0-98.0) fL MCH 26.6 L (27.0-33.0) pg MCHC 33.2 (31.0-36.0) g/dl RDW 13.7 (11.0-16.0) % Plt Count 318 (160-400) X10*3/uL MPV 10.1 (9.4-12.4) fL Immature Gran % (Auto) 0.5 H (0.0-0.4) % Neut % (Auto) 87.9 H (45-73) % Lymph % (Auto) 6.0 L (20-40) % [place] % (Auto) 5.1 (2-11) % Eos % (Auto) 0.3 (0-4) % Baso % (Auto) 0.2 (0-2) % Lymph # (Auto) 1.0 L (1.2-4.9) X10*3/uL [place] # (Auto) 0.9 (0.1-1.2) X10*3/uL Eos # (Auto) 0.1 (0.0-0.4) X10*3/uL Baso # (Auto) 0.0 (0.0-0.2) X10*3/uL Abs Immat Gran (auto) 0.08 H (0.00-0.03) X10*3/uL Absolute Neuts (auto) 15.0 H (2.0-8.3) x10*3/uL Absolute Nucleated RBC 0.000 (0.0-0.012) X10*3/uL Nucleated RBC % (auto) 0.0 (0.0-0.2) /100WBC Sodium 139 (135-145) mmol/L Potassium 4.4 (3.3-5.1) mmol/L Chloride 103 (96-108) mmol/L Carbon Dioxide 24 (22-29) mmol/L Anion Gap 16 (12-20) BUN 22 H (9-16) mg/dL Creatinine 1.20 (0.5-1.4) mg/dL Estim Creat Clear Calc 75.7 Estimated GFR > 60 Random Glucose 115 (60-115) mg/dL Calcium 9.6 (8.4-10.2) mg/dL Magnesium 2.1 (1.6-2.6) mg/dL Total Bilirubin 0.6 (0.0-1.0) mg/dL AST 16 (5-37) U/L ALT 29 (0-40) U/L Alkaline Phosphatase 104 (39-117) U/L Total Protein 7.5 (6.5-8.0) g/dL Albumin 4.5 (3.5-5.0) g/dL Discharge Plan Discharge Clinical Impression: Vomiting and diarrhea Patient Disposition: Home, Self-Care Instructions: Gastroenteritis (ED) Additional Instructions: Drink plenty of fluids Medicine for nausea as prescribed Prescriptions: New ondansetron 4 mg tablet,disintegrating 4 mg PO Q6-8H PRN (Reason: nausea and vomiting) Qty: 6 0RF No Action epinephrine [EpiPen 2-Chevy] 0.3 mg/0.3 mL auto-injector 0.3 mg IM Q4H PRN (Reason: anaphylaxis) Qty: 2 1RF amlodipine [Norvasc] 5 mg tablet 5 mg PO DAILY Qty: 90 3RF albuterol sulfate 90 mcg/actuation HFA aerosol inhaler 2 inh inhalation Q6H PRN (Reason: shortness of breath or wheezing) Qty: 8.5 5RF cyclobenzaprine 10 mg tablet 10 mg PO TID PRN (Reason: muscle spasm) Qty: 10 0RF ibuprofen 600 mg tablet 600 mg PO TID PRN (Reason: fever or pain) Qty: 10 0RF (DME) blood pressure monitor [Blood Pressure Kit] Kit See Rx Instructions .Route Rx Instructions: As directed Interventions: ED Discharge Assessment Last Done: 08/20/23 04:03 Discharge Date/Time: 08/20/23 04:03
[2023-08-20] MEDS: Loperamide HCl 2 MG CAPSULE PO (02:53)
[2023-08-20] MEDS: ondansetron HCL 4 MG/2 ML VIAL IVPUSH (02:53)
[2023-08-20] MEDS: 0.9 % Sodium Chloride 1,000 ML 999 ML IV (02:53)
[2023-08-20 02:54] LABS: Alanine Aminotransferase 29 U/L (0-40); Albumin Level 4.5 g/dL (3.5-5.0); Alkaline Phosphatase 104 U/L (39-117); Anion Gap 16 (12-20); Aspartate Amino Transferase 16 U/L (5-37); Bilirubin Total 0.6 mg/dL (0.0-1.0); Blood Urea Nitrogen 22 mg/dL (9-16); Calcium 9.6 mg/dL (8.4-10.2); Carbon Dioxide 24 mmol/L (22-29); Chloride 103 mmol/L (96-108); Creatinine Clr Calc Pharmacy 75.7; Estimated Glomerular Filt Rate > 60; Glucose Random 115 mg/dL (60-115); Potassium 4.4 mmol/L (3.3-5.1); Sodium 139 mmol/L (135-145); Total Protein 7.5 g/dL (6.5-8.0)
[2023-08-20 02:58] LABS: Magnesium 2.1 mg/dL (1.6-2.6)
== END 2023-08-20 04:03 | disposition home or self-care (01) ==
PROVIDERS: Emergency Provider Internal Medicine; PCP Internal Medicine
DX: K52.9 Noninfective gastroenteritis and colitis, unspecified (principal); I10 Essential (primary) hypertension; J45.909 Unspecified asthma, uncomplicated
CPT/HCPCS: 36415; 80053; 83735; 85025; 96361; 96374; 99284; J2405

== ENCOUNTER 2023-10-21 08:05 | Outpatient (AMB) | payer OTHER, SELFPAY ==
[2023-10-21 08:35] VITALS: BP 148/90; PULSE 61; TEMP 36.5; O2SAT 95; BMI 30.7
--- NOTE | 2023-10-21 08:35 | MHC.OFFWIV ---
Intake Vital Signs 10/21/23 08:35 Height 5 ft 7 in Weight 196 lb BMI 30.7 BP 148/90 H Blood Pressure Location Lt brachial Position Sitting Pulse 61 Pulse Source Pulse Oximeter Temp 97.7 F Temp Source Temporal Artery Scan Pulse Oximetry (%) 95 Oxygen Delivery Method Room Air Intake Visit Reasons: EP Rash on both of legs Intake Note: pt is here today for rash on both legs started 2 months Patient Tobacco Use Status: Never used Tobacco Allergies candesartan Allergy (Severe, Verified 10/21/23 09:16) angioedema Iodinated Contrast Media [IV CONTRAST] Allergy (Intermediate, Verified 10/21/23 09:16) HIVES shrimp Allergy (Intermediate, Verified 10/21/23 09:16) THROAT SWELLING/ITCHING iopamidol [From Isovue-128] Allergy (Mild, Verified 10/21/23 09:16) HIVES Penicillins [PENICILLINS] Allergy (Unknown, Verified 10/21/23 09:16) REACTION UNKNOWN FRUIT, SKINS Allergy (Intermediate, Uncoded 10/21/23 09:16) THROAT SWELLING/ITCHING Dye RESIDENTIAL Blue 1 Allergy (Unknown, Uncoded 10/21/23 09:16) unknown Medication List - Last Reconciled 10/21/23 by PIPPA Kurtz albuterol sulfate 90 mcg/actuation 2 inhalations inhalation Q6H PRN amlodipine (Norvasc) 5 mg PO DAILY blood pressure monitor (Blood Pressure Kit) As directed epinephrine (EpiPen 2-Chevy) 0.3 mg (0.3 mL) IM Q4H PRN Do you need a note to return to daycare/school/sports/work: No HPI HPI Comments History of Present Illness Details Patient is a 52-year-old male in today for sick visit patient states that over the past 2 months he has developed small scaling patches on his bilateral shins. Denies pain, denies discharge denies fevers. Patient states that they are slightly uncomfortable and a little itchy. Patient denies chest pain, shortness a breath. Patient denies contact with plants. Patient has used [id number] lotions with little effect. Patient denies tingling or numbness of the extremities. [facility]LY [facility] Medical History Asthma Anemia Retinal vascular occlusion of left eye Peripheral neuropathy Numbness and tingling of both legs below knees CRVO (central retinal vein occlusion) Annual visit for general adult medical examination with abnormal findings Hx of angioedema Acute colitis Obesity (BMI 30.0-34.9) Retinal vein occlusion HTN (hypertension) Surgical History H/O hand surgery Hx of appendectomy History of repair of left rotator cuff Family History Father Prostate cancer Glaucoma Mother Essential hypertension Social History Household Members: Spouse and Family Housing: House Alcohol intake: current Alcohol intake frequency: holidays/special occasions only Patient Tobacco Use Status: Never used Tobacco e-Cigarette/Vaping Use: Never Used Second Hand Smoke Exposure: No service: No Current occupational status: employed Current occupational exposures/hazards: No Cognitive needs: No Hearing needs: No Vision needs: Yes Review of Systems Const Details: Constitutional : No Weight loss, No Fever, No Chills, No Fatigue, No Malaise ENT/Mouth : No sore throat, No Rhinorrhea Eyes: No Eye Pain, No Swelling, No Redness Cardiovascular : No Chest Pain, No SOB, No Dyspnea on Exertion, No Orthopnea, No Edema, No Palpitations Respiratory : No Cough, No Sputum, No Wheezing Musculoskeletal : No joint pain, No Myalgias, No Joint Swelling Skin : Small scaling rash on bilateral shins. Neuro : No Weakness, No Numbness, No Dizziness, No Headache Psych : No Anxiety/Panic, No Depression All other systems reviewed and are negative Physical Exam Vital Signs: Last Vital Signs Temp 97.7 F 10/21/23 08:35 Pulse 61 10/21/23 08:35 BP 148/90 H 10/21/23 08:35 Pulse Ox 95 10/21/23 08:35 Oxygen Delivery Method Room Air 10/21/23 08:35 BMI result Body Mass Index 30.7 Const Other: Appearance: Alert.? Oriented X3.? No acute distress.? Head: Normocephalic, atraumatic, no step-offs or deformities Eyes: Pupils equal, round and reactive to light.? CVS: Normal heart rate and rhythm.? Pulses normal.? Respiratory: No respiratory distress.? Breath sounds normal.? Skin: Small dime sized scaling rash on bilateral shins. No discharge or erythema. Extremities: No lower extremity edema.? No calf ttp. 5/5 strength. Neuro: Oriented X 3.? No motor deficit.? No sensory deficit. CN 2-12 intact Assessment & Plan Assessment & Plan (1) Eczema: Comment: Patient will given clobetasol cream to be taken as directed. Patient has been instructed not to use a cream from within 2 weeks. If he sees no improvement he should return to the walk-in Code(s): L30.9 - Dermatitis, unspecified Qualifiers: Eczema type: unspecified Qualified Code(s): L30.9 - Dermatitis, unspecified Plan: Take your medications as prescribed. If you were prescribed antibiotics today, it is important that you take your medication to their entirety, do not skip any doses, do not finish them early. Follow-up with your primary care provider this week. Return to the emergency department with new or worsening symptoms. Such as fevers, chills, chest pain, shortness of breath, nausea, vomiting, dizziness, headache, vision changes, lethargy In case of emergency call 911 Plan Follow-up with PCP Medications: New clobetasol 0.05% 1 appl topical BID 30 grams 0RF 1 week Coding Level of Care Code Est Pt Level 3 (49886) Diagnoses Eczema, unspecified type L30.9 Eczema type: unspecified Time Spent (min) 21
== END 2023-10-21 09:21 | disposition home or self-care (01) ==
PROVIDERS: PCP Internal Medicine; Visit Provider Nurse Practitioner Primary Care
DX: L30.9 Dermatitis, unspecified (principal)
CPT/HCPCS: 99213

== ENCOUNTER 2023-12-18 15:14 | Emergency (ER) | payer OTHER, SELFPAY ==
--- NOTE | ~2023-12-18 | CT_ITS ---
EXAMINATION: CT HEAD WITHOUT CONTRAST CLINICAL INFORMATION: Headache. Elevated blood pressure. COMPARISON: None available. TECHNIQUE: Contiguous axial imaging was performed from the skull base to vertex without intravenous administration of contrast. This CT examination was performed using dose optimization techniques as appropriate, variously including the following: *Automated exposure control *Adjustment of mA and/or kV according to patient size (this includes techniques or standardized protocols for targeted exams where dose is matched to indication/reason for exam; i.e. extremities or head) *Use of iterative reconstruction technique DLP: 700 mGy-cm FINDINGS: There is no evidence of acute intracranial hemorrhage or edematous or territorial infarction. No abnormal mass effect or midline shift is seen. [place] to white matter differentiation is well preserved. No extra-axial fluid collections are identified. The ventricles are normal in size. No abnormal attenuation in the brain parenchyma. No acute calvarial fracture.. Paranasal sinuses and mastoid air cells are well-aerated. CT/CT head/brain wo IV con IMPRESSION: No CT evidence of acute intracranial hemorrhage or edematous territorial infarction.
[2023-12-18 16:11] VITALS: BP 153/113; PULSE 105; RESP 16; TEMP 36.6; O2SAT 97; BMI 30.5
--- NOTE | 2023-12-18 16:13 | ECG_ITS ---
Test Reason : HTN Blood Pressure : / mmHG Vent. Rate : 093 BPM Atrial Rate : 093 BPM P-R Int : 156 ms QRS Dur : 092 ms QT Int : 340 ms P-R-T Axes : 038 032 002 degrees QTc Int : 422 ms Normal sinus rhythm with sinus arrhythmia Normal ECG When compared with ECG of 28-DEC-2022 06:38, T wave inversion now evident in Inferior leads Nonspecific T wave abnormality no longer evident in Lateral leads QT has shortened Referred By: Ivelisse Cole Electronically Signed By:MADELYN VICTORIA MD
[2023-12-18 16:36] LABS: MANUAL DIFF FLAG NO
[2023-12-18 16:38] LABS: Basophils Absolute Auto 0.1 X10*3/uL (0.0-0.2); Basophils Percent Auto 0.5 % (0-2); Eosinophils Absolute Auto 0.3 X10*3/uL (0.0-0.4); Eosinophils Percent Auto 2.1 % (0-4); Hematocrit 44.5 % (42.0-52.0); Hemoglobin 14.9 g/dl (14.0-18.0); Imm Gran Abs Auto 0.08 X10*3/uL (0.00-0.03); Imm Gran Pct Auto 0.5 % (0.0-0.4); Lymphocytes Absolute Auto 2.9 X10*3/uL (1.2-4.9); Lymphocytes Percent Auto 19.7 % (20-40); Mean Corpuscular HGB Conc 33.5 g/dl (31.0-36.0); Mean Corpuscular Hemoglobin 26.9 pg (27.0-33.0); Mean Corpuscular Volume 80.3 fL (80.0-98.0); Mean Platelet Volume 10.6 fL (9.4-12.4); Monocytes Absolute Auto 1.2 X10*3/uL (0.1-1.2); Monocytes Percent Auto 8.3 % (2-11); Neutrophils Absolute Auto 10.2 x10*3/uL (2.0-8.3); Neutrophils Percent Auto 68.9 % (45-73); Platelet Count 316 X10*3/uL (160-400); Red Blood Count 5.54 X10*6/uL (4.60-5.80); Red Cell Distribution Width 13.9 % (11.0-16.0); White Blood Count 14.9 X10*3/uL (4.8-10.8)
[2023-12-18 16:43] LABS: Prothrombin Time 11.8 SEC (11.1-13.3)
[2023-12-18 16:45] LABS: Partial Thromboplastin Time 31.8 SEC (26.0-36.8)
[2023-12-18 16:52] LABS: Alanine Aminotransferase 34 U/L (0-40); Albumin Level 4.7 g/dL (3.5-5.0); Alkaline Phosphatase 106 U/L (39-117); Anion Gap 15 (12-20); Aspartate Amino Transferase 22 U/L (5-37); Bilirubin Direct 0.1 mg/dL (0.0-0.5); Bilirubin Total 0.3 mg/dL (0.0-1.0); Blood Urea Nitrogen 21 mg/dL (9-16); Calcium 10.7 mg/dL (8.4-10.2); Carbon Dioxide 26 mmol/L (22-29); Chloride 104 mmol/L (96-108); Creatinine Clr Calc Pharmacy 91.4; Estimated Glomerular Filt Rate > 60; Glucose Random 92 mg/dL (60-115); Potassium 4.1 mmol/L (3.3-5.1); Sodium 141 mmol/L (135-145); Total Protein 7.8 g/dL (6.5-8.0)
[2023-12-18 16:59] LABS: Troponin-I High Sensitivity 7.5 ng/L (<3.5-35.0)
[2023-12-18 17:07] LABS: Appearance Urine Clear; Color Urine Yellow; Glucose Urine UA Negative (Negative); Leukocyte Esterase Urine Negative (Negative); Nitrite Urine Negative (Negative); PH 7.5 (5.0-9.0); Specific Gravity - Urine 1.015 (1.005-1.025); UMIC TRIGGER UACC YES; Urine Blood Trace (Negative); Urine Ketones Negative (Negative); Urine Protein Negative (Neg-Trace)
[2023-12-18 18:25] LABS: Bacteria Urine None Seen (None Seen); Hyaline Casts Urine 0-2 /LPF (0-2); Squamous Epithelial Cell Urine 0-2 /HPF (0-2); WBC Urine 0-5 /HPF (0-5)
[2023-12-18 19:34] VITALS: BP 137/101; PULSE 88; RESP 20; TEMP 37.2; O2SAT 97
[2023-12-18] MEDS: Acetaminophen 325 MG TABLET 650 MG PO (19:36)
[2023-12-19 01:23] VITALS: BP 150/100; PULSE 66; RESP 15; TEMP 36.7; O2SAT 98
--- NOTE | 2023-12-19 03:45 | ED_ITS ---
HPI - Headache General Chief Complaint: Headache Stated Complaint: high blood pressure, headache,sweaty Time Seen by Provider: 12/19/23 03:19 Source: patient Mode of arrival: ambulatory Limitations: no limitations History of Present Illness ED Provider: antolin BARTON Narrative: Patient's history of chronic hypertension on Norvasc 5 mg daily has retinal vein occlusion gets injections the I which he received yesterday noticed blood pressure elevated to 150/90 with history of same in the past patient took extra Norvasc 5 mg yesterday at 13:00 on arrival patient's blood pressure was 153/113 with pulse rate of 105 patient feels stressed out Related Data Home Medications ?Medication ?Instructions ?Recorded ?Confirmed blood pressure monitor (Blood 12/05/22 10/21/23 Pressure Kit) Previous Rx's ?Medication ?Instructions ?Recorded epinephrine 0.3 mg/0.3 mL 0.3 mg (0.3 mL) IM Q4H PRN 12/06/22 injection, auto-injector (EpiPen anaphylaxis #2 ea 2-Chevy) amlodipine 5 mg tablet (Norvasc) 5 mg PO DAILY #90 tabs 01/03/23 albuterol sulfate 90 mcg/actuation 2 inh inhalation Q6H PRN shortness 06/24/23 aerosol inhaler of breath or wheezing #8.5 grams clobetasol 0.05 % topical gel 1 appl topical BID 1 week #30 grams 10/21/23 hydrochlorothiazide 25 mg tablet 25 mg PO QAM #30 tabs 12/19/23 Allergies Allergy/AdvReac Type Severity Reaction Status Date / Time candesartan Allergy Severe angioedema Verified 12/18/23 16:13 Iodinated Contrast Media Allergy Intermediate HIVES Verified 12/18/23 16:13 [IV CONTRAST] shrimp Allergy Intermediate THROAT Verified 12/18/23 16:13 SWELLING/ITCHING iopamidol [From Isovue-128] Allergy Mild HIVES Verified 12/18/23 16:13 Penicillins [PENICILLINS] Allergy Unknown REACTION Verified 12/18/23 16:13 UNKNOWN FRUIT, SKINS Allergy Intermediate THROAT Uncoded 10/21/23 09:16 SWELLING/ITCHING Dye DETENTION Blue 1 Allergy Unknown unknown Uncoded 10/21/23 09:16 Review of Systems 2 Review of Systems: Yes all other systems are reviewed and are negative PMFSH Past Medical History Medical History Asthma Anemia Retinal vascular occlusion of left eye Peripheral neuropathy Numbness and tingling of both legs below knees CRVO (central retinal vein occlusion) Annual visit for general adult medical examination with abnormal findings Hx of angioedema Acute colitis Obesity (BMI 30.0-34.9) Retinal vein occlusion HTN (hypertension) Surgical History H/O hand surgery Hx of appendectomy History of repair of left rotator cuff Family History Family History Father Prostate cancer Glaucoma Mother Essential hypertension Social History Social History Household Members: Spouse and Family Housing: House Alcohol intake: current Alcohol intake frequency: holidays/special occasions only Patient Tobacco Use Status: Never used Tobacco e-Cigarette/Vaping Use: Never Used Second Hand Smoke Exposure: No Advance Directives: No Advance Directives Information Provided: No service: No Current occupational status: employed Current occupational exposures/hazards: No Cognitive needs: No Hearing needs: No Vision needs: Yes Physical Exam 2 Vital Signs: Vital Signs: Last Vital Signs Temp 98.1 F 12/19/23 01:23 Pulse 66 12/19/23 01:23 Resp 15 12/19/23 01:23 BP 150/100 H 12/19/23 01:23 Pulse Ox 98 12/19/23 01:23 O2 Del Method Room Air 12/19/23 01:23 BMI result Body Mass Index 30.5 Appearance: Alert. Oriented X3. No acute distress. Eyes: PERRLA, No Nystagmus ENT: Pharynx normal. Oral Mucosa moist no temporal artery tenderness Neck: Normal inspection. Neck supple. CVS: Normal heart rate and rhythm. Pulses normal. Respiratory: No respiratory distress. Equal air entry bilateral, no wheezing/rales/rhonchi Abdomen: Soft and nontender. Bowel sounds are present, no mass palpable, no CVA tenderness Skin: Skin warm and dry. Normal skin color. Normal skin turgor. Extremities: No lower extremity edema. No calf tenderness Neuro: Oriented X 3. No motor deficit. No sensory deficit.No cerebellar signs , cranial nerves II-XII intact Medications Administered Discontinued Medications Generic Name Dose Route Start Last Admin Trade Name Chrissy PRN Reason Stop Dose Admin Acetaminophen 650 mg 12/18/23 19:34 12/18/23 19:36 Acetaminophen 325 Mg Tablet PO 12/18/23 19:35 650 mg ONCE ONE Administration Medical Decision Making Lab Data 12/18/23 16:33 12/18/23 16:33 Labs: Lab Results 12/18/23 12/18/23 Range/Units 16:33 16:48 WBC 14.9 H (4.8-10.8) X10*3/uL RBC 5.54 (4.60-5.80) X10*6/uL Hgb 14.9 (14.0-18.0) g/dl Hct 44.5 (42.0-52.0) % MCV 80.3 (80.0-98.0) fL MCH 26.9 L (27.0-33.0) pg MCHC 33.5 (31.0-36.0) g/dl RDW 13.9 (11.0-16.0) % Plt Count 316 (160-400) X10*3/uL MPV 10.6 (9.4-12.4) fL Immature Gran % (Auto) 0.5 H (0.0-0.4) % Neut % (Auto) 68.9 (45-73) % Lymph % (Auto) 19.7 L (20-40) % [place] % (Auto) 8.3 (2-11) % Eos % (Auto) 2.1 (0-4) % Baso % (Auto) 0.5 (0-2) % Lymph # (Auto) 2.9 (1.2-4.9) X10*3/uL [place] # (Auto) 1.2 (0.1-1.2) X10*3/uL Eos # (Auto) 0.3 (0.0-0.4) X10*3/uL Baso # (Auto) 0.1 (0.0-0.2) X10*3/uL Abs Immat Gran (auto) 0.08 H (0.00-0.03) X10*3/uL Absolute Neuts (auto) 10.2 H (2.0-8.3) x10*3/uL Absolute Nucleated RBC 0.000 (0.0-0.012) X10*3/uL Nucleated RBC % (auto) 0.0 (0.0-0.2) /100WBC PT 11.8 (11.1-13.3) SEC INR 1.0 (0.9-1.1) APTT 31.8 (26.0-36.8) SEC Sodium 141 (135-145) mmol/L Potassium 4.1 (3.3-5.1) mmol/L Chloride 104 (96-108) mmol/L Carbon Dioxide 26 (22-29) mmol/L Anion Gap 15 (12-20) BUN 21 H (9-16) mg/dL Creatinine 0.98 (0.5-1.4) mg/dL Estim Creat Clear Calc 91.4 Estimated GFR > 60 Random Glucose 92 (60-115) mg/dL Calcium 10.7 H D (8.4-10.2) mg/dL Total Bilirubin 0.3 (0.0-1.0) mg/dL Direct Bilirubin 0.1 (0.0-0.5) mg/dL AST 22 (5-37) U/L ALT 34 (0-40) U/L Alkaline Phosphatase 106 (39-117) U/L Troponin I High Sens 7.5 D (<3.5-35.0) ng/L Total Protein 7.8 (6.5-8.0) g/dL Albumin 4.7 (3.5-5.0) g/dL Urine Color Yellow Urine Appearance Clear Urine pH 7.5 (5.0-9.0) Ur Specific [place] 1.015 (1.005-1.025) Urine Protein Negative (Neg-Trace) mg/dL Urine Glucose (UA) Negative (Negative) mg/dL Urine Ketones Negative (Negative) mg/dL Urine Blood Trace H (Negative) Urine Nitrite Negative (Negative) Ur Leukocyte Esterase Negative (Negative) Urine RBC 6-10 H (0-2) /HPF Urine WBC 0-5 (0-5) /HPF Ur Squamous Epith Cells 0-2 (0-2) /HPF Urine Bacteria None Seen (None Seen) Hyaline Casts 0-2 (0-2) /LPF Discharge Plan Discharge Clinical Impression: Accelerated essential hypertension Patient Disposition: Home, Self-Care Instructions: Chronic Hypertension (ED) Additional Instructions: Drink plenty of fluids Decreased salt intake Check blood pressure twice a day should be less than 140/90 Increase the dose of Norvasc to 10 mg daily Add hydrochlorothiazide 25 mg daily in a.m. Follow up with your PCP if blood pressure still elevated Prescriptions: New hydrochlorothiazide 25 mg tablet 25 mg PO QAM Qty: 30 0RF No Action epinephrine [EpiPen 2-Chevy] 0.3 mg/0.3 mL auto-injector 0.3 mg IM Q4H PRN (Reason: anaphylaxis) Qty: 2 1RF amlodipine [Norvasc] 5 mg tablet 5 mg PO DAILY Qty: 90 3RF albuterol sulfate 90 mcg/actuation HFA aerosol inhaler 2 inh inhalation Q6H PRN (Reason: shortness of breath or wheezing) Qty: 8.5 5RF (DME) blood pressure monitor [Blood Pressure Kit] Kit See Rx Instructions .Route Rx Instructions: As directed clobetasol 0.05 % gel 1 appl topical BID 7 Days Qty: 30 0RF Print Language: Kazakh
[2023-12-19 04:13] VITALS: BP 130/100; PULSE 83; RESP 14; TEMP 36.7; O2SAT 98
[2023-12-19 04:14] VITALS: BP 130/100; PULSE 83; RESP 14; TEMP 36.7; O2SAT 98
== END 2023-12-19 04:17 | disposition home or self-care (01) ==
PROVIDERS: Physician Assistant Medical; Emergency Provider Internal Medicine; PCP Internal Medicine
DX: I10 Essential (primary) hypertension (principal); H34.8122 Central retinal vein occlusion, left eye, stable; D64.9 Anemia, unspecified; J45.909 Unspecified asthma, uncomplicated
CPT/HCPCS: 36415; 70450; 80048; 80076; 81001; 81003; 84484; 85025; 85610; 85730; 93005; 99284; 99285

== ENCOUNTER → 2023-12-18 16:13 | Outpatient (BNV) | payer OTHER, SELFPAY | PROVIDERS: Emergency Provider Internal Medicine; PCP Internal Medicine; Visit Provider Internal Medicine Cardiovascular Disease | DX: I10 Essential (primary) hypertension (principal) | CPT/HCPCS: 93010 ==

== ENCOUNTER 2023-12-22 11:41 | Outpatient (AMB) | payer OTHER, SELFPAY ==
[2023-12-22 12:37] VITALS: BP 158/86; PULSE 72; O2SAT 96; BMI 31.2
--- NOTE | 2023-12-22 12:37 | A.OFFPC_ITS ---
Vital Signs 12/22/23 12:37 12/22/23 13:27 Height 5 ft 7 in Weight 199 lb 4 oz BMI 31.2 BP 158/86 H 130/90 H Blood Pressure Location Lt brachial Lt brachial Position Sitting Sitting Pulse 72 Pulse Source Pulse Oximeter Pulse Oximetry (%) 96 Oxygen Delivery Method Room Air Intake Visit Reasons: High Blood Pressure Intake Note: Pt is here today for high blood pressure. Pt was seen in the ED 12/19/23. Allergies candesartan Allergy (Severe, Verified 12/22/23 12:58) angioedema Iodinated Contrast Media [IV CONTRAST] Allergy (Intermediate, Verified 12/22/23 12:58) HIVES shrimp Allergy (Intermediate, Verified 12/22/23 12:58) THROAT SWELLING/ITCHING iopamidol [From Isovue-128] Allergy (Mild, Verified 12/22/23 12:58) HIVES Penicillins [PENICILLINS] Allergy (Unknown, Verified 12/22/23 12:58) REACTION UNKNOWN FRUIT, SKINS Allergy (Intermediate, Uncoded 12/22/23 12:58) THROAT SWELLING/ITCHING Dye SENIOR LIVING Blue 1 Allergy (Unknown, Uncoded 12/22/23 12:58) unknown Medication List - Last Reconciled 12/22/23 by Jelena Hammonds MD albuterol sulfate 90 mcg/actuation 2 inhalations inhalation Q6H PRN amlodipine (Norvasc) 10 mg PO DAILY blood pressure monitor (Blood Pressure Kit) As directed clobetasol 0.05% 1 appl topical BID 1 week epinephrine (EpiPen 2-Chevy) 0.3 mg (0.3 mL) IM Q4H PRN hydrochlorothiazide 25 mg PO QAM Tobacco use date assessed: 12/22/23 Dental Screening Dental Screen Date: 12/22/23 Did you have a dental visit in the last 12 months?: Yes Did you have a dental problem in the last 6 months where you did not have access to dental care?: No Was dental information given to patient?: Patient has dentist HPI High Blood Pressure HPI Details 53 year old male with hypertension , on Norvasc 5 mg daily, hx of retinal vein occlusion, gets Eyelea injections every 6 weeks at [facility] , here today for follow-up after recent ER visit 12/19/2023 where he was seen for elevated blood pressure readings. Patient states that he received an eye injection the day prior to his ER visits and noted blood pressure going up to 150/90 . Has had similar episode in the past after receiving eye injections. At the ER , he was told increase his amlodipine to 10 mg daily, and started on hydrochlorothiazide 25 mg daily in a.m.. On arrival here the clinic blood pressure was noted to be elevated, it was repeated after having him rest for at least 15 minutes and blood pressure went down to 130/90. Denies any headache, no chest pain, no lightheadedness or shortness of breath. FORMERLY [facility] Medical History (Updated 12/27/23 @ 23:22 by Jelena Hammonds MD) Asthma Anemia Peripheral neuropathy CRVO (central retinal vein occlusion) Hx of angioedema Acute colitis Obesity (BMI 30.0-34.9) HTN (hypertension) Surgical History H/O hand surgery Hx of appendectomy History of repair of left rotator cuff Family History Father Prostate cancer Glaucoma Mother Essential hypertension Social History Household Members: Spouse and Family Housing: House Alcohol intake: current Alcohol intake frequency: holidays/special occasions only Patient Tobacco Use Status: Never used Tobacco e-Cigarette/Vaping Use: Never Used Second Hand Smoke Exposure: No service: No Current occupational status: employed Current occupational exposures/hazards: No Cognitive needs: No Hearing needs: No Vision needs: Yes Questionnaire PHQ-9 Over the last 2 weeks, how often have you been bothered by any of the following problems? 1. Little interest or pleasure in doing things: not at all 2. Feeling down, depressed, or hopeless: not at all 3. Trouble falling or staying asleep, or sleeping too much: not at all 4. Feeling tired or having little energy: not at all 5. Poor appetite or overeating: not at all 6. Feeling bad about yourself - or that you are a failure or have let yourself or your family down: not at all 7. Trouble concentrating on things, such as reading the newspaper or watching television: not at all 8. Moving or speaking so slowly that other people could have noticed. Or the opposite - being so fidgety or restless that you have been moving around a lot more than usual: not at all 9. Thoughts that you would be better off or of hurting yourself in some way: not at all Total score: 0 Depression Screening Interpretation: Negative Depression Screening Done: Yes 00779 - PHQ-9 Billing: Yes Source: Developed by Drs. Shane Brown, Leighann Tolliver, Gus Solitario and colleagues, with an educational sher from [employer]. Thrive Questionnaire Date Thrive assessed: 12/22/23 I am a: Patient What is your living situation today?: I have a steady place to live Within the past 12 months, did the food you bought not last and you didn't have the money to get more?: Never true Within the past 12 months, did you worry whether your food would run out before you got money to buy more?: Never true Do you have trouble paying for medicines?: No Do you have trouble getting transportation to medical appointments?: No Do you have trouble paying your heating and electricity bill?: No Do you have trouble taking care of your child, family member or friend?: No Do you have trouble with day-to-day activities such as bathing, preparing meals, shopping, managing finances, etc.?: No Are you currently unemployed and looking for a job?: No Are you interested in more education?: No THRIVE Score: 0 AUDIT C Alcohol Use Questionnaire (AUDIT-C) 1. How often do you have a drink containing alcohol?: Never 3. How often do you have six or more drinks on one occasion?: Never Total Score: 0 Score Reviewed/Action Taken: Yes JOELLEN-7 AMB Questionnaire JOELLEN-7 Date JOELLEN - 7 assessed: 12/22/23 Feeling nervous, anxious, or on edge: 0 = Not at all Not being able to stop or control worryin = Not at all Worrying too much about different things: 0 = Not at all Trouble relaxin = Not at all Being so restless that it is hard to sit still: 0 = Not at all Becoming easily annoyed or irritable: 0 = Not at all Feeling afraid as if something awful might happen: 0 = Not at all Total JOELLEN-7 score (0-4 normal; 5-9 mild; 10-14 moderate; 15-21 severe): 0 Source: Developed by Drs. Shane Brown, Leighann Tolliver, Gus Solitario and colleagues, with an educational sher from [employer]. JOELLEN-7 Assessment Billing JOELLEN-7 Assessment Tool: JOELLEN-7 Assessment 43981 Review of Systems Const All systems reviewed & are unremarkable except as noted in HPI and below Eyes Reports no additional complaints ENT Reports no additional complaints Card Reports as per HPI and Reports no additional complaints Resp Reports no additional complaints GI Reports no additional complaints Musc Reports no additional complaints Skin/Breast Denies lesions and Denies rash Neuro Reports no additional complaints Endo Reports no additional complaints Kunal/Lymph Reports no additional complaints Physical exam (Primary Care) Vital Signs: Last Vital Signs Pulse 72 12/22/23 12:37 BP 130/90 H 12/22/23 13:27 Pulse Ox 96 12/22/23 12:37 Oxygen Delivery Method Room Air 12/22/23 12:37 BMI result Body Mass Index 31.2 Tobacco/Smoking Status: Tobacco use Status Tobacco use date assessed 12/22/23 12/22/23 12:44 Patient Tobacco Use Status Never used Tobacco 12/22/23 12:38 e-Cigarette/Vaping Use Never Used 12/22/23 12:38 PHQ-9: PHQ-9 Score PHQ-9: Total score 0 12/22/23 13:29 Depression Screening Interpretation: Negative Thrive Assessment: Date of Thrive Assessment Date Thrive assessed 12/22/23 12/22/23 13:29 Const Nutritional Appearance: obese Orientation/consciousness: patient oriented x3 HENMT Head: Yes normocephalic Mouth: Normal oral and palatal mucosa present, oropharynx normal and moist mucous membranes Eyes General: appearance normal, both eyes and all related structures Neck Neck: Yes full ROM, Yes no lymphadenopathy and Yes supple Resp Effort & Inspection: normal respiratory effort and able to speak in complete sentences Auscultation: clear to auscultation bilaterally Cardio Other: S1-S2 present regular rate and rhythm Bruits: no abdominal aortic bruits GI Palpation (GI): No Abdominal aortic bruit present, Soft to palpation, nontender and no guarding General: Yes no CVA tenderness Back/Spine/Pelvis Back: no CVA tenderness and No back tenderness Skin General skin exam: no rashes or lesions noted Neuro General: patient oriented x3, gait normal, tone normal, moves all extremities, Normal light touch and pain sensation, no focal motor deficits, CN's II-XI intact bilaterally and normal sensation to monofilament Extrem General: Yes full ROM, Yes no joint enlargement, Yes no clubbing, cyanosis or edema, Yes no calf tenderness and Yes normal gait Assessment and Plan Assessment & Plan (1) HTN (hypertension): Code(s): I10 - Essential (primary) hypertension Qualifiers: Hypertension type: primary hypertension Qualified Code(s): I10 - Essential (primary) hypertension Plan: Advised to take amlodipine just 5 mg in p.m., and start taking lisinopril 5 mg 1 tablet p.o. in a.m.. If blood pressure still not less than 130/80, resume taking hydrochlorothiazide at 12.5 mg together with lisinopril in the morning. Continue checking blood pressure at home, will see her back for your scheduled PE on 01/13/2024 Orders: Orders Basic Metabolic Panel Fasting 01/04/24 E66.9 - Obesity, unspecified, E83.52 - Hypercalcemia, I10 - Essential (primary) hypertension, Z00.01 - Encounter for general adult medical examination with abnormal findings, Z13.220 - Encounter for screening for lipoid disorders Lipid Panel 01/04/24 E66.9 - Obesity, unspecified, E83.52 - Hypercalcemia, I10 - Essential (primary) hypertension, Z00.01 - Encounter for general adult medical examination with abnormal findings, Z13.220 - Encounter for screening for lipoid disorders Aspartate Amino Transferase 01/04/24 E66.9 - Obesity, unspecified, E83.52 - Hypercalcemia, I10 - Essential (primary) hypertension, Z00.01 - Encounter for general adult medical examination with abnormal findings, Z13.220 - Encounter for screening for lipoid disorders Alanine Aminotransferase 01/04/24 E66.9 - Obesity, unspecified, E83.52 - Hypercalcemia, I10 - Essential (primary) hypertension, Z00.01 - Encounter for general adult medical examination with abnormal findings, Z13.220 - Encounter for screening for lipoid disorders Calcium, Ionized 01/04/24 E66.9 - Obesity, unspecified, E83.52 - Hypercalcemia, I10 - Essential (primary) hypertension, Z00.01 - Encounter for general adult medical examination with abnormal findings, Z13.220 - Encounter for screening for lipoid disorders Complete Blood Count Auto Diff 01/04/24 E66.9 - Obesity, unspecified, E83.52 - Hypercalcemia, I10 - Essential (primary) hypertension, Z00.01 - Encounter for general adult medical examination with abnormal findings, Z13.220 - Encounter for screening for lipoid disorders Medications: New lisinopril 5 mg PO DAILY 30 tabs 0RF Coding Level of Care Code Est Pt Level 4 (93442) Complex EM visit Add On G2211 Diagnoses Primary hypertension I10 Hypertension type: primary hypertension Additional Codes JOELLEN-7 Assessment Billing - JOELLEN-7 Assessment Tool: JOELLEN-7 Assessment 59226 ([id number])
[2023-12-22 13:27] VITALS: BP 130/90
== END 2023-12-22 15:31 | disposition home or self-care (01) ==
PROVIDERS: PCP Internal Medicine; Visit Provider Internal Medicine
DX: I10 Essential (primary) hypertension (principal)
CPT/HCPCS: 99214; G2211

== ENCOUNTER 2024-05-18 08:04 | Outpatient (AMB) | payer OTHER, SELFPAY ==
[2024-05-18 08:08] VITALS: BP 130/90; PULSE 59; O2SAT 97
--- NOTE | 2024-05-18 08:08 | MHC.OFFWIV ---
Intake Vital Signs 05/18/24 08:08 Weight 202 lb 2 oz BP 130/90 H Blood Pressure Location Lt brachial Position Sitting Pulse 59 Pulse Source Pulse Oximeter Pulse Oximetry (%) 97 Oxygen Delivery Method Room Air Intake Visit Reasons: EP-b/l rash in legs Intake Note: Patient here for rash on bilat legs that has been present for about a few months. Patient Tobacco Use Status: Never used Tobacco Allergies candesartan Allergy (Severe, Verified 05/18/24 08:14) angioedema Iodinated Contrast Media [IV CONTRAST] Allergy (Intermediate, Verified 05/18/24 08:14) HIVES shrimp Allergy (Intermediate, Verified 05/18/24 08:14) THROAT SWELLING/ITCHING iopamidol [From Isovue-128] Allergy (Mild, Verified 05/18/24 08:14) HIVES Penicillins [PENICILLINS] Allergy (Unknown, Verified 05/18/24 08:14) REACTION UNKNOWN FRUIT, SKINS Allergy (Intermediate, Uncoded 05/18/24 08:14) THROAT SWELLING/ITCHING Dye SHELTER Blue 1 Allergy (Unknown, Uncoded 05/18/24 08:14) unknown Do you need a note to return to daycare/school/sports/work: Yes HPI HPI Comments History of Present Illness Details History of Present Illness The patient is a 53-year-old male presenting with concerns regarding skin rash on both legs. He describes lumpy, dry patches resembling eczema, present for several months, consistent with a prior episode for which clobetasol, a potent topical corticosteroid, was prescribed. The initial treatment led to some improvement as the lesion?s bumpiness decreased, but the condition has since recurred. The lesions are noted as persistent, non-itchy, and without discharge. Previous recommendations included strong steroid use, with some reduction in lesion prominence, but not a complete resolution, he thinks . Additionally, the patient reports detecting discoloration on his left 5th toenail. It is noted that the change in toenail color might be related to aging or potential onychomycosis. The patient has not noted any thickening typical of fungal infections, but close monitoring and possible conservative management through nail trimming were discussed. FORMERLY [facility] Medical History (Updated 05/18/24 @ 08:32 by Evangelina Dias PA-C) Asthma Anemia Peripheral neuropathy CRVO (central retinal vein occlusion) Hx of angioedema Acute colitis Obesity (BMI 30.0-34.9) HTN (hypertension) Surgical History H/O hand surgery Hx of appendectomy History of repair of left rotator cuff Family History Father Prostate cancer Glaucoma Mother Essential hypertension Social History Household Members: Spouse and Family Housing: House Alcohol intake: current Alcohol intake frequency: holidays/special occasions only Patient Tobacco Use Status: Never used Tobacco e-Cigarette/Vaping Use: Never Used Second Hand Smoke Exposure: No service: No Current occupational status: employed Current occupational exposures/hazards: No Cognitive needs: No Hearing needs: No Vision needs: Yes Review of Systems Const All systems reviewed & are unremarkable except as noted in HPI and below Physical Exam Vital Signs: Last Vital Signs Pulse 59 05/18/24 08:08 BP 130/90 H 05/18/24 08:08 Pulse Ox 97 05/18/24 08:08 Oxygen Delivery Method Room Air 05/18/24 08:08 Const General: cooperative, healthy appearing, comfortable and no acute distress Orientation/consciousness: patient oriented x3 Limitations: no limitations HEENT Head: Yes normal to inspection Eyes General: appearance normal, both eyes and all related structures Resp Effort & Inspection: normal respiratory effort and able to speak in complete sentences Skin Other: dry, dark erythematous patches on bilateral shins Nails: yellow and thickened (left 5th toenail) Neuro General: patient oriented x3 Assessment & Plan Assessment & Plan (1) Eczema: Comment: Code(s): L30.9 - Dermatitis, unspecified Qualifiers: Eczema type: unspecified Qualified Code(s): L30.9 - Dermatitis, unspecified Plan: For the eczema, I prescribe triamcinolone, a moderate potency topical corticosteroid, to be applied twice daily for 7 to 10 days. Following this treatment, the patient should transition to regular use of emollients such as Eucerin or Aquaphor to maintain skin hydration and prevent recurrence. If the condition persists or worsens, referral to dermatology may be considered for alternate diagnosis. Patient was informed and verbally consented to the use of an ambient scribe for clinic note documentation during this visit. (2) Onychomycosis: Code(s): B35.1 - Tinea unguium Plan: For the suspected onychomycosis, I recommend conservative management by keeping the affected toenail short and filed. If the condition evolves to include thickening or discoloration consistent with fungal infection, further evaluation by the primary care physician might be necessary, with potential consideration for topical antifungal treatment if indicated. Regular monitoring and conservative care are advised unless significant changes occur. Medications: New triamcinolone acetonide 0.1% 1 appl topical BID 30 grams 0RF Coding Level of Care Code Est Pt Level 4 (65353) Diagnoses Eczema, unspecified type L30.9 Eczema type: unspecified Onychomycosis B35.1
== END 2024-05-18 08:31 | disposition home or self-care (01) ==
PROVIDERS: PCP Internal Medicine; Visit Provider Physician Assistant
DX: L30.9 Dermatitis, unspecified (principal); B35.1 Tinea unguium

== ENCOUNTER → 2024-05-18 08:04 | Outpatient (BNVA) | payer OTHER, SELFPAY | PROVIDERS: PCP Internal Medicine; Visit Provider Physician Assistant | DX: L30.9 Dermatitis, unspecified (principal); B35.1 Tinea unguium | CPT/HCPCS: 99212 ==

== ENCOUNTER 2024-05-30 15:22 | Outpatient (REF) | payer OTHER, SELFPAY ==
--- NOTE | ~2024-05-30 | MR_ITS ---
EXAMINATION: MR BRAIN WITHOUT AND WITH CONTRAST CLINICAL INFORMATION: Cramping and spasm. Numbness. COMPARISON: CT head from 12/18/2023. TECHNIQUE: MRI of the brain was obtained using routine sequences without and following the administration of 9 mL of Gadavist intravenous contrast. FINDINGS: No focal restricted diffusion is demonstrated to suggest acute or subacute cerebral ischemia. No evidence of acute or chronic hemorrhagic products on heme-sensitive imaging. Few nonspecific scattered periventricular and deep white matter T2 FLAIR hyperintensities. The ventricles are normal in morphology and size. No abnormal mass effect. No midline shift. Normal appearance of the pituitary gland. Normal positioning of the cerebellar tonsils. Normal arterial and venous vascular flow voids are present. No abnormal contrast enhancement. Normal, homogeneous marrow signal. Mild mucosal thickening of the paranasal sinuses. No signal abnormalities within the mastoids. MR/MR head/brain wo/w con IMPRESSION: 1. No acute intracranial abnormalities. No abnormal intracranial enhancement. 2. Minimal nonspecific white matter changes. Electronically signed by: Chepe Batres DO 06/07/2024 08:51 AM EST
[2024-05-30] MEDS: gadobutroL 10 ML VIAL IVPUSH (16:32)
== END 2024-05-30 15:23 | disposition home or self-care (01) ==
LOC: HO.MRI 15:22
PROVIDERS: PCP Internal Medicine; Visit Provider Nurse Practitioner Family
DX: R25.2 Cramp and spasm (principal); R25.1 Tremor, unspecified; I10 Essential (primary) hypertension; G62.89 Other specified polyneuropathies
CPT/HCPCS: 70553; A9585

== ENCOUNTER 2024-11-02 08:05 | Outpatient (REF) | payer OTHER, SELFPAY ==
--- OUTSIDE RECORDS SUMMARY | 2024-11-02 08:08 | XMS_ITS | Clinical Summary ---
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 Name Role Phone Unavailable Primary Care Provider Unavailabl e Social History Tobacco Use Types Packs/Day Years Used Date Smoking Tobacco: Never Assessed Sex and Gender Information Value Date Recorded Sex Assigned at Not on file Legal Sex Male 5:41 AM EST Gender Identity Not on file Sexual Orientation Not on file Plan of Treatment Health Maintenance Due Date Last Done Comments DTaP,Tdap,and Td Vaccines (1 - Tdap) 1988 Hepatitis B Vaccines (1 of 3 - 19+ 3-dose series) 1988 Pneumococcal Vaccine: 50+ Ye ars (1 of 1 - PCV) 11/14/2019 Zoster Vaccines (1 of 2) 11/14/2019 COVID-19 Vaccine ( - 2023-2 5 season) 2024 Influenza Vaccine (Season Ended) 2025 HIB Vaccines Aged Out No longer eligi ble based on patient's age to complete this topic HPV Vaccines Aged Out No longer eligi ble based on patient's age to complete this topic Hepatitis A Vaccines Aged Out No long er eligible based on patient's age to complete this topic IPV Vaccines Aged Out No longer eligi ble based on patient's age to complete this topic MMR Vaccines Aged Out No longer eligi ble based on patient's age to complete this topic Meningococcal ACWY Vaccine Aged Out N o longer eligible based on patient's age to complete this topic Meningococcal B Vaccine Aged Out No l onger eligible based on patient's age to complete this topic Pneumococcal Vaccine: Pediat rics (0 to 5 Years) and At-Risk Patients (6 to 64 Years) Aged Out No longer eligible b ased on patient's age to complete this topic RSV Immunization Patients Un nicolas 20 months Aged Out No longer eligible b ased on patient's age to complete this topic Varicella Vaccines Aged Out No longer eligible based on patient's age to complete this topic
[2024-11-02 08:30] LABS: MANUAL DIFF FLAG NO
[2024-11-02 09:10] LABS: Basophils Absolute Auto 0.1 X10*3/uL (0.0-0.2); Basophils Percent Auto 0.7 % (0-2); Eosinophils Absolute Auto 0.4 X10*3/uL (0.0-0.4); Eosinophils Percent Auto 3.3 % (0-4); Hematocrit 44.6 % (42.0-52.0); Hemoglobin 14.3 g/dl (14.0-18.0); Imm Gran Abs Auto 0.05 X10*3/uL (0.00-0.03); Imm Gran Pct Auto 0.5 % (0.0-0.4); Lymphocytes Percent Auto 19.3 % (20-40); Mean Corpuscular HGB Conc 32.1 g/dl (31.0-36.0); Mean Corpuscular Hemoglobin 26.1 pg (27.0-33.0); Mean Corpuscular Volume 81.5 fL (80.0-98.0); Mean Platelet Volume 10.6 fL (9.4-12.4); Neutrophils Absolute Auto 7.1 x10*3/uL (2.0-8.3); Neutrophils Percent Auto 67.2 % (45-73); Platelet Count 275 X10*3/uL (160-400); Red Blood Count 5.47 X10*6/uL (4.60-5.80); Red Cell Distribution Width 13.9 % (11.0-16.0); White Blood Count 10.5 X10*3/uL (4.8-10.8)
[2024-11-02 10:31] LABS: Blood Urea Nitrogen 16 mg/dL (9-16)
[2024-11-02 10:37] LABS: Alanine Aminotransferase 32 U/L (0-40); Aspartate Amino Transferase 26 U/L (5-37); Calcium 9.7 mg/dL (8.4-10.2); Cholesterol 209 mg/dL (<200); Estimated Glomerular Filt Rate > 60; Glucose Fasting 97 mg/dL (60-99); HDL Cholesterol 44 mg/dL (>40); LDL Cholesterol Calculated 139 mg/dL (<100); Triglycerides 134 mg/dL (<150)
[2024-11-02 11:10] LABS: Anion Gap 14 (12-20); Carbon Dioxide 30 mmol/L (22-29); Chloride 105 mmol/L (96-108); Potassium 4.5 mmol/L (3.3-5.1); Sodium 144 mmol/L (135-145)
[2024-11-03 15:39] LABS: Calcium, Ionized 5.1 mg/dL (4.7-5.5)
== END 2024-11-02 08:06 | disposition home or self-care (01) ==
LOC: HO.LAB 08:05
PROVIDERS: PCP Internal Medicine; Visit Provider Internal Medicine
DX: Z00.01 Encounter for general adult medical examination with abnormal findings (principal); I10 Essential (primary) hypertension; E66.9 Obesity, unspecified; Z13.220 Encounter for screening for lipoid disorders; E83.52 Hypercalcemia
CPT/HCPCS: 36415; 80048; 80061; 82330; 84450; 84460; 85025

== ENCOUNTER 2025-05-16 15:23 | Outpatient (AMB) | payer OTHER, SELFPAY ==
--- NOTE | 2025-05-16 15:28 | MHC.PC.OV ---
Vital Signs 05/16/25 15:29 Height 5 ft 7 in Weight 205 lb BMI 32.1 BP 140/90 H Blood Pressure Location Lt brachial Position Sitting Respiration 16 Pulse 77 Pulse Source Pulse Oximeter Temp 97.5 F Temp Source Oral Pulse Oximetry (%) 98 Oxygen Delivery Method Room Air Intake Visit Reasons: Rash and spots on legs past the knees Intake Note: Pt is here today c/o rash and dry spots on legs past his knees Finishing Range Operator Required: No Allergies candesartan Allergy (Severe, Verified 05/16/25 15:44) angioedema Iodinated Contrast Media (IV CONTRAST) Allergy (Intermediate, Verified 05/16/25 15:44) HIVES shrimp Allergy (Intermediate, Verified 05/16/25 15:44) THROAT SWELLING/ITCHING iopamidol (From Isovue-128) Allergy (Mild, Verified 05/16/25 15:44) HIVES Penicillins (PENICILLINS) Allergy (Unknown, Verified 05/16/25 15:44) REACTION UNKNOWN FRUIT, SKINS Allergy (Intermediate, Uncoded 05/16/25 15:44) THROAT SWELLING/ITCHING Dye ALF Blue 1 Allergy (Unknown, Uncoded 05/16/25 15:44) unknown Medication List - Last Reconciled 05/16/25 by Jelena Hammonds MD albuterol sulfate 90 mcg/actuation 2 inhalations inhalation Q6H PRN amlodipine 5 mg PO DAILY blood pressure monitor (Blood Pressure Kit) As directed epinephrine (EpiPen 2-Chevy) 0.3 mg (0.3 mL) IM Q4H PRN Tobacco use date assessed: 05/16/25 Dental Screening Dental Screen Date: 05/16/25 Did you have a dental visit in the last 12 months?: Yes Did you have a dental problem in the last 6 months where you did not have access to dental care?: No Was dental information given to patient?: Patient has dentist HPI Rash and spots on legs past the knees HPI Details 54-year-old male with past medical history significant for hypertension, asthma, mixed axonal demyelinating polyneuropathy, here today complaining a persistent pigmented rash on both lower extremities which has been present now for months. He has been applying eiea-tbh-emhgxmz steroid cream and lotion which does not afford resolution of the rash. Denies any accompanying pruritus, no pain in affected area, no joint pain, no swelling in lower extremities noted. No History of any insect or tick bites. [facility] Medical History (Updated 05/16/25 @ 15:50 by Jelena Hammonds MD) Pigmented skin lesion of lower extremity Asthma Anemia Peripheral neuropathy CRVO (central retinal vein occlusion) Hx of angioedema Acute colitis Obesity (BMI 30.0-34.9) HTN (hypertension) Surgical History H/O hand surgery Hx of appendectomy History of repair of left rotator cuff Family History Father Prostate cancer Glaucoma Mother Essential hypertension Social History Household Members: Spouse and Family Housing: House Alcohol intake: current Alcohol intake frequency: holidays/special occasions only Patient Tobacco Use Status: Never used Tobacco e-Cigarette/Vaping Use: Never Used Second Hand Smoke Exposure: No service: No Current occupational status: employed Current occupational exposures/hazards: No Cognitive needs: No Hearing needs: No Vision needs: Yes Questionnaire PHQ-9 Over the last 2 weeks, how often have you been bothered by any of the following problems? 1. Little interest or pleasure in doing things: nearly every day 2. Feeling down, depressed, or hopeless: not at all 3. Trouble falling or staying asleep, or sleeping too much: not at all 4. Feeling tired or having little energy: not at all 5. Poor appetite or overeating: not at all 6. Feeling bad about yourself - or that you are a failure or have let yourself or your family down: not at all 7. Trouble concentrating on things, such as reading the newspaper or watching television: not at all 8. Moving or speaking so slowly that other people could have noticed. Or the opposite - being so fidgety or restless that you have been moving around a lot more than usual: not at all 9. Thoughts that you would be better off or of hurting yourself in some way: not at all Total score: 3 Depression Screening Interpretation: Negative Depression Screening Done: Yes Source: Developed by Drs. Shane Brown, Leighann B.W. Gus Tolliver and colleagues, with an educational sher from [employer]. Thrive Questionnaire Date Thrive assessed: 12/22/23 I am a: Patient What is your living situation today?: I have a steady place to live Within the past 12 months, did the food you bought not last and you didn't have the money to get more?: I choose not to answer this question Within the past 12 months, did you worry whether your food would run out before you got money to buy more?: I choose not to answer this question Do you have trouble paying for medicines?: I choose not to answer this question Do you have trouble getting transportation to medical appointments?: I choose not to answer this question Do you have trouble paying your heating and electricity bill?: I choose not to answer this question Do you have trouble taking care of your child, family member or friend?: I choose not to answer this question Do you have trouble with day-to-day activities such as bathing, preparing meals, shopping, managing finances, etc.?: I choose not to answer this question Are you currently unemployed and looking for a job?: I choose not to answer this question Are you interested in more education?: I choose not to answer this question Please select the resources that you would like help with: None Currently or been in a relationship where the following occur: I choose not to answer THRIVE Score: 0 AUDIT C Alcohol Use Questionnaire (AUDIT-C) 1. How often do you have a drink containing alcohol?: Never Total Score: 0 JOELLEN-7 AMB Questionnaire JOELLEN-7 Date JOELLEN - 7 assessed: 12/22/23 Feeling nervous, anxious, or on edge: 0 = Not at all Not being able to stop or control worryin = Not at all Worrying too much about different things: 0 = Not at all Trouble relaxin = Not at all Being so restless that it is hard to sit still: 0 = Not at all Becoming easily annoyed or irritable: 0 = Not at all Feeling afraid as if something awful might happen: 0 = Not at all Total JOELLEN-7 score (0-4 normal; 5-9 mild; 10-14 moderate; 15-21 severe): 0 Source: Developed by Drs. Shane Brown, Gus Holland and colleagues, with an educational sher from [employer]. Review of Systems Const All systems reviewed & are unremarkable except as noted in HPI and below Physical exam (Primary Care) Vital Signs: Last Vital Signs Temp 97.5 F 05/16/25 15:29 Pulse 77 05/16/25 15:29 Resp 16 05/16/25 15:29 BP 140/90 H 05/16/25 15:29 Pulse Ox 98 05/16/25 15:29 Oxygen Delivery Method Room Air 05/16/25 15:29 BMI result Body Mass Index 32.1 Tobacco/Smoking Status: Tobacco use Status Tobacco use date assessed 05/16/25 05/16/25 15:35 Patient Tobacco Use Status Never used Tobacco 05/16/25 15:35 e-Cigarette/Vaping Use Never Used 05/16/25 15:35 PHQ-9: PHQ-9 Score PHQ-9: Total score 3 05/16/25 15:59 Depression Screening Interpretation: Negative Thrive Assessment: Date of Thrive Assessment Date Thrive assessed 12/22/23 05/16/25 15:35 Currently or been in a relationship where the following occur: I choose not to answer Const Nutritional Appearance: obese Orientation/consciousness: patient oriented x3 HENMT Head: Yes normocephalic Mouth: moist mucous membranes Eyes General: appearance normal, both eyes and all related structures Neck Neck: Yes full ROM, Yes no lymphadenopathy and Yes supple Resp Effort & Inspection: normal respiratory effort and able to speak in complete sentences Auscultation: clear to auscultation bilaterally Cardio Other: S1-S2 present regular rate and rhythm GI Palpation (GI): Soft to palpation, nontender and no guarding Skin Other: Slightly raised dusky colored skin lesions scattered on both lower extremities up to ankles Neuro General: patient oriented x3, gait normal, tone normal, moves all extremities, Normal light touch and pain sensation and no focal motor deficits Extrem General: Yes full ROM, Yes no joint enlargement, Yes no clubbing, cyanosis or edema, Yes no calf tenderness and Yes normal gait Coding Level of Care Code Est Pt Level 4 (59606) Diagnoses Pigmented skin lesion of lower extremity L81.9 Assessment & Plan Assessment & Plan (1) Pigmented skin lesion of lower extremity: Code(s): L81.9 - Disorder of pigmentation, unspecified Category: Medical Plan: No improvement with ulge-qsi-cwoxptx steroid cream or lotion. Will refer to Dermatology for further evaluation management Orders: Referrals Dermatology Referral L81.9 - Disorder of pigmentation, unspecified
[2025-05-16 15:29] VITALS: BP 140/90; PULSE 77; RESP 16; TEMP 36.4; O2SAT 98; BMI 32.1
--- OUTSIDE RECORDS SUMMARY | 2025-05-16 20:02 | XMS_ITS | Encounter Summary ---
Author Organization [facility] Address [address] [place] [address] Phone Care Team Providers Care Supervisor Counseling And Guidance Name Role Phone Aimee Glover MD Primary Care Provider [phone] Encounter Details Date Type Department Care Team (Late st Contact Info) Description 05/06/2018 [place]hth Exam [facility] [place] [address] [place] [address] Carla Mcneal MD [address] [address] [email or web address] Social History Tobacco Use Types Packs/Day Years Used Date Smoking Tobacco: Never Smokeless Tobacco: Never Alcohol Use Standard Drinks/Week Comments Yes 0 (1 standard drink = 0.6 oz pur e alcohol) socially Sex and Gender Information Value Date Recorded Sex Assigned at Not on file Legal Sex Male 7:23 PM EST Gender Identity Not on file Sexual Orientation Not on file documented as of this encounter Plan of Treatment Upcoming Encounters Date Type Department Care Team (Late st Contact Info) Description 06/28/2025 9:40 AM EST Procedure visit [facility] [address] [place] [address] Gian Shah MD [address] [place] [address] [email or web address] documented as of this encounter Visit Diagnoses Not on filedocumented in this encounter Care Teams Supervisor Counseling And Guidance Relationship Specialty Start Date End Date Aimee Glover MD [address] [place] [address] PCP - General Internal Medicine 05/06/18 documented as of this encounter Additional Source Comments The information contained in this document represents components of the legal health record. It is not the complete legal health record.[facility]
--- OUTSIDE RECORDS SUMMARY | 2025-05-16 20:02 | XMS_ITS | Clinical Summary ---
Author Organization [facility] Address [address] [place] [address] Phone Care Team Providers Care Kettle Chipper Name Role Phone Aimee Glover MD Primary Care Provider [phone] Allergies Active Allergy Reactions Criticality Noted Date Comments Iodinated Contrast Media Hives 08/12/2019 Medications albuterol 90 mcg/actuation inhaler Inhale 1 puff into the lungs every 6 (six) hours as needed for wheezing. Active candesartan (ATACAND) 16 MG tablet Take 4 mg by mouth daily. Active aspirin 81 MG EC tablet Take 81 mg by mouth daily. Active amLODIPine (NORVASC) 5 MG tablet Take 5 mg by mouth. 02/27/2023 Active Active Problems Problem Noted Date Diagnosed Date Central retinal vein occlusi on with macular edema of left eye 12/12/2021 Encounters Date Type Department Care Team Description 05/03/2025 9:30 AM EST Procedure visit [facility] [address] [place] [address] Gian Shah MD Central retinal vein occlusion with macular edema of left eye (Primary Dx) 03/17/2025 8:00 AM EDT Procedure visit [facility] [address] [place] [address] Gian Shah MD Central retinal vein occlusion with macular edema of left eye (Primary Dx) from Last 3 Months Family History Medical History Relation Comments Cancer Father Glaucoma Father Cataracts Mother Relation Status Comments Father Mother Social History Tobacco Use Types Packs/Day Years Used Date Smoking Tobacco: Never Smokeless Tobacco: Never Tobacco Cessation:Counseling Given: Not Answered Alcohol Use Standard Drinks/Week Comments Yes 0 (1 standard drink = 0.6 oz pur e alcohol) socially Education Answer Date Recorded Are you interested in more education? Not on mukund e 10/17/2022 Are you concerned about learning? Not on file 10/17/2022 No 10/17/2022 No 10/17/2022 Digital Access Answer Date Recorded No 11/18/2022 No 11/18/2022 Reliable internet access at home? Not on file 11/18/2022 Device with a working camera? Not on file Sex and Gender Information Value Date Recorded Sex Assigned at Not on file Legal Sex Male 7:23 PM EST Gender Identity Not on file Sexual Orientation Not on file Last Filed Vital Signs Vital Sign Reading Time Taken Comments Blood Pressure 153/87 12/17/2023 9:58 AM EDT Patient denied for any s/s Pulse 60 12/17/2023 9:58 AM EDT Temperature 36.7 C (98.1 F) 05/06/2018 1:36 PM EST Respiratory Rate 16 02/13/2022 9:52 AM EDT Oxygen Saturation 96% 08/12/2019 5:3 7 PM EST Inhaled Oxygen Concentration - - Weight 83.9 kg (184 lb 15.5 oz) 12/23/2022 9:13 AM EDT Height 172.7 cm (5' 8 ) 12/23/2022 9:13 AM EDT Body Mass Index 28.12 12/23/2022 9:13 AM EDT Plan of Treatment Upcoming Encounters Date Type Department Care Team (Late st Contact Info) Description 06/28/2025 9:40 AM EST Procedure visit [facility] [address] [address] Gian Shah MD [address] [place] [address] [email or web address] Health Maintenance Due Date Last Done Comments Adult Td,Tdap Booster 1969 CREATININE LEVEL 1969 LIPID PANEL 1969 POTASSIUM LEVEL 1969 DEPRESSION SCREENING 1981 HEPATITIS C SCREENING 11/14/1987 HIV ONE-TIME SCREENING (18-6 5 YEARS) 11/14/1987 SCREENING FOR DIABETES 2004 COLOGUARD 2014 COLONOSCOPY 2014 COLORECTAL CANCER SCREENING 2014 FIT TEST 2014 FOBT 2014 SIGMOIDOSCOPY 2014 VIRTUAL COLONOSCOPY 2014 PNEUMOCOCCAL VACCINES (50+ y ears) (1 of 1 - PCV) 11/14/2019 ZOSTER VACCINES (1 of 2) 11/14/2019 INFLUENZA VACCINE (#1) 2025 COVID-19 VACCINE (1 - 2024-2 6 season) 2025 RSV VACCINE (1 - 1-dose 75+ series) 2044 SMOKING STATUS SCREENING (On ce After 26 Yrs) Completed 02/19/2024 HEPATITIS A VACCINES Aged Out No long er eligible based on patient's age to complete this topic HIB VACCINES Aged Out No longer eligi ble based on patient's age to complete this topic MENINGOCOCCAL VACCINES (ACWY) Aged Out No longer eligible based on patient's age to complete this topic MENINGOCOCCAL VACCINES (B) Aged Out N o longer eligible based on patient's age to complete this topic Medical Devices Not on file Procedures Procedure Name Priority Date/Time Associated Diagnosis Comments INTRAVITREAL INJECTION, PHARMACOLOGIC AGENT - OS - LEFT EYE Routine 05/03/2025 10:17 AM EST Central retinal vein occlusion with macular edema of left eye OCT, RETINA - OU - BOTH EYES Routine 05/03/2025 10:16 AM EST Central retinal vein occlusion with macular edema of left eye OCT, RETINA - OU - BOTH EYES Routine 03/17/2025 9:45 AM EDT Central retinal vein occlusion with macular edema of left eye INTRAVITREAL INJECTION, PHARMACOLOGIC AGENT - OS - LEFT EYE Routine 03/17/2025 9:45 AM EDT Central retinal vein occlusion with macular edema of left eye from Last 3 Months Results * Intravitreal Injection, Pharmacologic Agent - OS - Left Eye (05/03/2025 10:17 AM EST) Narrative Gian Shah MD - 05/03/2025 10:17 AM EST Pre-Procedure Fall Risk Assessment: none apply. Pre Procedure Drops to Injected Eye Anesthetic Medication: Proparacaine 0.5%. Injection Information Timeout performed: Yes. Anesthetic Medication: Proparacaine 0.5%. Anesthetic Medication, time: 9:12 AM. Antiseptic Medication Povidone Iodine. Antiseptic Medication, Time: 9:12 AM. Antibiotic Medications: Moxifloxacin 0.5%. Injection Medication: 2 mg aflibercept 2 mg/0.05 mL Route: Intravitreal, Site: Left Eye [facility]: 04506-024-10, Lot: [id number], Expiration date: 05/22/2026, Waste: 0 mL Post-Procedure Pain Assessment: 0. Fall Risk Reassessment: medication regimen (5 pts). Notes Eylea Intravitreal Injection Note Treat and Extend Regimen ? Preop Meds: 4% topical lidocaine 5% Povidone-Iodine pre-injection Planned Procedure to OS ? Injected: 0.05cc Eylea (2 mg) 3.5 mm behind the limbus inferotemporal quadrant ? Post-injection vision: CF ? RD / endophthalmitis precautions and information given ?Follow-up interval: 8 weeks for re-injection?? and [place] OCT,worse at 9 weeks ?? Discharge instructions were reviewed with the patient. The patient can continue all their medications. Gian Shah MD OPHTHALMOLOGY PROCEDURES Final Result * OCT, RETINA - OU - BOTH EYES - [place]; Macula (05/03/2025 10:16 AM EST) Narrative GUILLERMO - 05/03/2025 10:16 AM EST Right Eye Findings include normal foveal contour. Disease has: been stable. Left Eye Findings include clinically significant macular edema. Disease has: been improved. us Gian Shah MD OPHTHALMOLOGY IMAGING Final Res ult GUILLERMO * OCT, RETINA - OU - BOTH EYES - [place] (03/17/2025 9:45 AM EDT) Moiz CRUZMattie - 03/17/2025 9:45 AM EDT Right Eye Findings include normal foveal contour. Left Eye Findings include clinically significant macular edema. Disease has: been worsened. Gian Shah MD OPHTHALMOLOGY IMAGING Final Res ult GUILLERMO * Intravitreal Injection, Pharmacologic Agent - OS - Left Eye (03/17/2025 9:45 AM EDT) Other Narrative Gian Shah MD - 03/17/2025 9:45 AM EDT Pre-Procedure Fall Risk Assessment: none apply. Pre Procedure Drops to Injected Eye Anesthetic Medication: Proparacaine 0.5%. Antibiotic/Antiseptic Medications: Moxifloxacin 0.5%. Injection Information Timeout performed: Yes. Anesthetic Medication: Proparacaine 0.5%. Anesthetic Medication, time: 9:20 AM. Antiseptic Medication Povidone Iodine. Antiseptic Medication, Time: 9:20 AM. Antibiotic Medications: Moxifloxacin 0.5%. Injection Medication: 2 mg aflibercept 2 mg/0.05 mL Route: Intravitreal, Site: Left Eye ND: [id number], Lot: [id number], Expiration date: 04/22/2026, Waste: 0 mL Post-Procedure Pain Assessment: 0. Fall Risk Reassessment: medication regimen (5 pts). Notes Eylea Intravitreal Injection Note Treat and Extend Regimen ? Preop Meds: 4% topical lidocaine 5% Povidone-Iodine pre-injection Planned Procedure to OS ? Injected: 0.05cc Eylea (2 mg) 3.5 mm behind the limbus inferotemporal quadrant ? Post-injection vision: CF ? RD / endophthalmitis precautions and information given ?Follow-up interval: 7 weeks for re-injection?? and [place] OCT,worse at 9 weeks ?? Discharge instructions were reviewed with the patient. The patient can continue all their medications. Gian Shah MD OPHTHALMOLOGY PROCEDURES Final Result from Last 3 Months Insurance WELLSENSE NON NSPG PCP [employer] CONNECTORCARE WELL[employer] NON NSPG PCP [employer] NON NSPG PCP S[employer] CONNECTORCARE [employer] NON NSPG PCP [place] [place] [address] [place] [address] NON NSPG PCP [facility] [place] [address] [address] [place] [address] NON NSPG PCP [facility] Care Teams Kettle Chipper Relationship Specialty Start Date End Date Aimee Glover MD [facility] [place] [address] PCP - General Internal Medicine 05/06/18 Additional Source Comments The information contained in this document represents components of the legal health record. It is not the complete legal health record.[facility]
--- OUTSIDE RECORDS SUMMARY | 2025-05-16 20:02 | XMS_ITS | Clinical Summary ---
Author Organization [facility] ity Address [address] [place] [address] Care Team Providers Care Manager Work Name Role Phone Unavailable Primary Care Provider [...] 11/14/2019 Zoster Vaccines (1 of 2) 11/14/2019 Depression Screening 06/23/2024 COVID-19 Vaccine (1 - 2024-2 6 season) 2025 Influenza Vaccine (#1) 2025 RSV Immunization Adult Patie nts (1 - 1-dose 75+ series) 2044 HIB Vaccines Aged Out No longer eligi [...]
--- OUTSIDE RECORDS SUMMARY | 2025-05-16 20:02 | XMS_ITS | Encounter Summary ---
Author Organization [facility] Address [address] [place] [address] [place] [address] Phone Care Team Providers Care Scanning Clerk Name Role Phone Aimee Glover MD Primary Care Provider [phone] Encounter Details Date Type Department Care Team (Late st Contact Info) Description 08/12/2019 Ophth Exam [facility] [place] Department [address] [place] [address] Delvis Rodriguez MD [address] [place] [address] [email or web address] Social History Tobacco Use Types Packs/Day Years [...] 06/28/2025 9:40 AM EST Procedure visit [facility] [address] [place] [address] Gian Shah MD [address] [place] [address] [email or web address] documented as of this encounter Visit Diagnoses Not on filedocumented in this encounter Care Teams Scanning Clerk Relationship Specialty Start Date End Date Aimee Glover MD [facility] [place] [address] PCP - General Internal Medicine 05/06/18 documented as of this encounter Additional Source Comments The information contained in this document represents components of the legal health record. It is not the complete legal health record.[facility]
== END 2025-05-16 16:11 | disposition home or self-care (01) ==
LOC: HO.HMCC 15:23
PROVIDERS: PCP Internal Medicine; Visit Provider Internal Medicine
DX: L81.9 Disorder of pigmentation, unspecified (principal)

== ENCOUNTER → 2025-05-16 15:23 | Outpatient (BNVA) | payer OTHER, SELFPAY | PROVIDERS: PCP Internal Medicine; Visit Provider Internal Medicine | DX: R21 Rash and other nonspecific skin eruption (principal); I10 Essential (primary) hypertension; J45.909 Unspecified asthma, uncomplicated | CPT/HCPCS: 99212 ==

== ENCOUNTER 2025-06-01 07:06 | Outpatient (AMB) | payer OTHER, SELFPAY ==
--- OUTSIDE RECORDS SUMMARY | 2025-06-01 07:08 | XMS_ITS | Clinical Summary ---
Author Organization [facility] ity Address [address] [place] [address] Care Team Providers Care Director Information Name Role Phone Unavailable Primary Care Provider [...]
--- OUTSIDE RECORDS SUMMARY | 2025-06-01 07:08 | XMS_ITS | Encounter Summary ---
Author Organization [facility] Address [address] [place] [address] [place] [address] Phone Care Team Providers Care Maintenance Repairer Name Role Phone Aimee Glover MD Primary Care Provider [phone] Encounter Details Date Type Department Care Team (Late st Contact Info) Description 08/12/2019 Ophth Exam [facility] Emergency Department [address] [place] [address] Delvis Rodriguez MD [address] [place] [address] [email or web address] Social History Tobacco Use Types Packs/Day Years [...] 9:40 AM EST Procedure visit [facility] [place] [address] [place] [address] Gian Shah MD [address] [place] [address] [email or web address] documented as of this encounter Visit Diagnoses Not on filedocumented in this encounter Care Teams Maintenance Repairer Relationship Specialty Start Date End Date Aimee Glover MD [facility] [place] [address] PCP - General Internal Medicine 05/06/18 documented as of this encounter Additional Source Comments The information contained in this document represents components of the legal health record. It is not the complete legal health record.[facility]
--- OUTSIDE RECORDS SUMMARY | 2025-06-01 07:08 | XMS_ITS | Encounter Summary ---
Author Organization [facility] Address [address] [place] [address] Phone Care Team Providers Care Pizza Chef Name Role Phone Aimee Glover MD Primary Care Provider [phone] Encounter Details Date Type Department Care Team (Late st Contact Info) Description 05/06/2018 Ophth Exam [facility] [address] [place] [address] Carla Mcneal MD [address] [address] [email or web address] Social History Tobacco Use [...] 9:40 AM EST Procedure visit [facility] [address] [place] [address] Gian Shah MD [address] [place] [address] [email or web address] documented as of this encounter Visit Diagnoses Not on filedocumented in this encounter Care Teams Pizza Chef Relationship Specialty Start Date End Date Aimee Glover MD [address] [place] [address] PCP - General Internal Medicine 05/06/18 documented as of this encounter Additional Source Comments The information contained in this document represents components of the legal health record. It is not the complete legal health record.[facility]
--- OUTSIDE RECORDS SUMMARY | 2025-06-01 07:09 | XMS_ITS | Clinical Summary ---
Author Organization [facility] Address [address] [place] [phone] Phone Care Team Providers Care Senior Quality Engineer Name Role Phone Aimee Glover MD Primary Care Provider [phone] Allergies Active Allergy Reactions Criticality Noted Date [...] Description 05/03/2025 9:30 AM EST Procedure visit [facility] [place] [address] [place] [address] Gian Shah MD Central retinal vein occlusion with macular edema of left eye (Primary Dx) 03/17/2025 8:00 AM EDT Procedure visit [facility] [place] [address] [place] [address] Gian Shah MD Central retinal vein occlusion [...] 06/28/2025 9:40 AM EST Procedure visit [facility] [address] [address] Gian Shah MD [address] [place] [id number] [email or web address] Health Maintenance Due Date Last Done Comments [...] mg/0.05 mL Route: Intravitreal, Site: Left Eye [facility]: 36278-160-36, Lot: [id number], Expiration date: 05/22/2026, Waste: 0 mL Post-Procedure [...] ?Follow-up interval: 8 weeks for re-injection?? and [place] OCT,worse at 9 weeks ?? Discharge instructions were reviewed with the patient. The patient can continue all their medications. Gian Shah MD OPHTHALMOLOGY PROCEDURES Final Result * OCT, RETINA - OU - BOTH EYES - [place]; Macula (05/03/2025 10:16 AM EST) Narrative [facility] - 05/03/2025 10:16 AM EST Right Eye Findings include normal foveal contour. Disease has: been stable. Left Eye Findings include clinically significant macular edema. Disease has: been improved. us Gian Shah MD OPHTHALMOLOGY IMAGING Final Res ult [facility] * OCT, RETINA - OU - BOTH EYES - [place] (03/17/2025 9:45 AM EDT) Moiz CRUZMattie - [...] mL Route: Intravitreal, Site: Left Eye [place]: [id number], Lot: [id number], Expiration date: 04/22/2026, Waste: 0 mL Post-Procedure [...] ?Follow-up interval: 7 weeks for re-injection?? and [place] OCT,worse at 9 weeks ?? Discharge instructions were reviewed with the patient. The patient can continue all their medications. Gian Shah MD OPHTHALMOLOGY PROCEDURES Final Result from Last 3 Months Insurance WELLS[employer] NON NSPG PCP [employer] CONNE[employer] NON NSPG PCP [facility] [employer] NON NSPG PCP S[employer] NON NSPG PCP [facility] [place] [address] [place] [address] NON NSPG [facility] [place] [address] [place] [address] NON NSPG PCP [facility] Care Teams Senior Quality Engineer Relationship Specialty Start Date End Date Aimee Glover MD [facility] [place] [address] PCP - General Internal Medicine 05/06/18 Additional Source Comments The information contained in this document represents components of the legal health record. It is not the complete legal health record.[facility]
--- NOTE | 2025-06-01 07:11 | MHC.OFFWIV ---
Intake Vital Signs 06/01/25 07:12 Height 5 ft 7 in Weight 201 lb BMI 31.5 BP 122/94 H Blood Pressure Location Rt brachial Position Sitting Pulse 78 Pulse Source Pulse Oximeter Temp 97.9 F Temp Source Oral Pulse Oximetry (%) 96 Oxygen Delivery Method Room Air Intake Visit Reasons: EP-cough, sinus & chest congestion, wheezing Intake Note: Patient presents c/o cough, wheezing, sinus congestion x3 days. Patient Tobacco Use Status: Never used Tobacco Allergies candesartan Allergy (Severe, Verified 06/01/25 07:14) angioedema Iodinated Contrast Media (IV CONTRAST) Allergy (Intermediate, Verified 06/01/25 07:14) HIVES shrimp Allergy (Intermediate, Verified 06/01/25 07:14) THROAT SWELLING/ITCHING iopamidol (From [id number]) Allergy (Mild, Verified 06/01/25 07:14) HIVES Penicillins (PENICILLINS) Allergy (Unknown, Verified 06/01/25 07:14) REACTION UNKNOWN FRUIT, SKINS Allergy (Intermediate, Uncoded 06/01/25 07:14) THROAT SWELLING/ITCHING Dye SKILLED NURSING Blue 1 Allergy (Unknown, Uncoded 06/01/25 07:14) unknown Do you need a note to return to daycare/school/sports/work: Yes HPI HPI Comments History of Present Illness Details This is a 54-year-old male with a past medical history of asthma and hypertension presenting for evaluation of sinus congestion and wheezing that has been evolving over the past 3 days. Patient denies having any sick contacts, fevers, chills, ear pain, sore throat or chest pain. He has been taking zinc and using his albuterol inhaler with increased frequency. Patient also notes using his nebulizer x2. [facility] Medical History (Updated 06/01/25 @ 07:32 by Neelam Rowan PA-C) Pigmented skin lesion of lower extremity Asthma Anemia Peripheral neuropathy CRVO (central retinal vein occlusion) Hx of angioedema Acute colitis Obesity (BMI 30.0-34.9) HTN (hypertension) Surgical History H/O hand surgery Hx of appendectomy History of repair of left rotator cuff Family History Father Prostate cancer Glaucoma Mother Essential hypertension Social History Household Members: Spouse and Family Housing: House Alcohol intake: current Alcohol intake frequency: holidays/special occasions only Patient Tobacco Use Status: Never used Tobacco e-Cigarette/Vaping Use: Never Used Second Hand Smoke Exposure: No service: No Current occupational status: employed Current occupational exposures/hazards: No Cognitive needs: No Hearing needs: No Vision needs: Yes Review of Systems Const All systems reviewed & are unremarkable except as noted in HPI and below Denies chills, Denies fatigue, Denies fever(s), Denies headache(s) and Denies weakness Eyes Reports no additional complaints ENT Denies otalgia, Denies headache(s), Reports nasal congestion, Denies odynophagia, Reports sinus pressure and Denies sore throat Card Reports no additional complaints and Reports dyspnea (Relieved with albuterol) Resp Reports chest congestion, Reports cough and Reports dyspnea (Relieved with albuterol) GI Reports no additional complaints and Denies odynophagia Reports no additional complaints Musc Reports no additional complaints Skin/Breast Reports system reviewed and no additional complaints, except as documented Neuro Reports no additional complaints, Denies headache(s) and Denies weakness Psych Reports no additional complaints Endo Reports no additional complaints and Denies fatigue Kunal/Lymph Reports no additional complaints Aller/Immun Reports no additional complaints Physical Exam Vital Signs: Last Vital Signs Temp 97.9 F 06/01/25 07:12 Pulse 78 06/01/25 07:12 BP 122/94 H 06/01/25 07:12 Pulse Ox 96 06/01/25 07:12 Oxygen Delivery Method Room Air 06/01/25 07:12 BMI result Body Mass Index 31.5 Const General: cooperative, healthy appearing, comfortable, no acute distress, alert, awake and Physically active; No ill appearing Nutritional Appearance: average body habitus Orientation/consciousness: patient oriented x3 Limitations: no limitations HEENT Head: Yes normal to inspection and Yes normocephalic Ears: hearing grossly normal bilaterally, TM's abnormal bilaterally (bulging without erythema) and EAC's normal General nose exam: Normal external nose present Face and sinus: Yes normal facial exam Mouth: Normal oral and palatal mucosa present, oropharynx normal and moist mucous membranes Throat: Yes posterior oropharynx normal Eyes General: appearance normal, both eyes and all related structures Neck Lymphatic: no lymphadenopathy noted Resp Effort & Inspection: normal respiratory effort, no audible wheezes, no cough, not labored, no nasal flaring and not tachypneic Auscultation: wheezes expiratory wheezes and lower bilaterally Cardio Rate: regular rate Rhythm: regular rhythm Skin General skin exam: no rashes or lesions noted Neuro General: patient oriented x3 Psych Appearance: grossly normal Mental Status: mental status grossly normal Insight: Good insight present (Psych) Judgement: Good judgement present (Psych) Assessment & Plan Assessment & Plan (1) Acute upper respiratory infection: Comment: Patient is well-appearing, afebrile and is not hypoxic. Patient's history coupled with his examination is consistent with a viral URI that has minimally exacerbated his asthma. Viral panel is obtained and results are pending. Code(s): J06.9 - Acute upper respiratory infection, unspecified Plan: Work note provided; increase clear fluids daily, rest as tolerated and use ibuprofen or Tylenol as needed for any discomfort. Orders: Orders SARS-CoV2/FLU/RSV Today R09.89 - Other specified symptoms and signs involving the circulatory and respiratory systems Coding Level of Care Code Est Pt Level 3 (05035) Diagnoses Acute upper respiratory infection J06.9 Time Spent (min) 20
[2025-06-01 07:12] VITALS: BP 122/94; PULSE 78; TEMP 36.6; O2SAT 96; BMI 31.5
== END 2025-06-01 08:02 | disposition home or self-care (01) ==
PROVIDERS: PCP Internal Medicine; Visit Provider Physician Assistant
DX: J06.9 Acute upper respiratory infection, unspecified (principal)

== ENCOUNTER 2025-06-01 07:06 | Outpatient (REF) | payer OTHER, SELFPAY ==
[2025-06-01 11:28] LABS: Resp Syncy Virus RNA Qual PCR NEGATIVE (Negative); SARS COV2 PCR INHOUSE NEGATIVE (Negative)
== END 2025-06-01 07:07 | disposition home or self-care (01) ==
LOC: HO.LNP 07:06
PROVIDERS: Physician Assistant; PCP Internal Medicine
DX: J06.9 Acute upper respiratory infection, unspecified (principal); R09.89 Other specified symptoms and signs involving the circulatory and respiratory systems; Z79.899 Other long term (current) drug therapy
CPT/HCPCS: 87637; 99212